=== PATIENT | female | born 1965 | race Caucasian/White ===

== ENCOUNTER 2016-08-05 17:47 | Inpatient (IN) | payer BC ==
[~2016-08-05] VITALS: Ht 167.6 cm; Wt 116.6 kg
--- NOTE | 2016-08-05 18:12 | PHYS DOC ---
Past Medical History Past Medical History: No Pertinent History Past Surgical History: Hysterectomy Alcohol Use: None Drug Use: None Adult General Chief Complaint Chief Complaint: ABDOMINAL PAIN HPI HPI Patient is a 50 year old female who presents with abdominal pain. Patient reports on she started having generalized abdominal pain. No clear inciting event other than she had eaten some chicken nachos prior to onset of pain. She describes a sharp pain without clear mitigating factors. She tried taking some omeprazole at home with insufficient relief. Pain is accompanied by nausea/vomiting. She has not had a bowel movement since Sunday. No other acute complaints. Review of Systems Review of Systems Constitutional: Denies fever or chills Eyes: Denies change in visual acuity or eye pain HENT: Denies nasal congestion or sore throat Respiratory: Denies cough or shortness of breath Cardiovascular: Denies chest pain GI: Generalized abdominal pain, nausea, vomiting, constipation. Denies bloody stools or diarrhea : Denies dysuria or hematuria Musculoskeletal: Denies back pain or joint pain Integument: Denies rash or skin lesions Neurologic: Denies headache, focal weakness or sensory changes Current Medications Current Medications Current Medications Medications (Trade) Dose Ordered Sig/Phillip Start Time Stop Time Status Last Admin Dose Admin Ertapenem (Invanz 1gm Ivpb For Omni) 50 ml @ 100 mls/hr 1X ONCE 08/05/16 20:00 08/05/16 20:29 DC 08/05/16 20:17 100 MLS/HR Famotidine (Pepcid) 20 mg 1X ONCE 08/05/16 18:30 08/05/16 18:31 DC 08/05/16 18:27 20 MG Info (Do NOT chart on this entry -- for MONITORING) 1 each PRN DAILY PRN 08/05/16 18:30 08/07/16 18:29 Iohexol (Omnipaque 300 Mg/ml) 75 ml 1X ONCE 08/05/16 18:30 08/05/16 18:31 DC 08/05/16 19:07 60 ML Morphine Sulfate 4 mg 1X ONCE 08/05/16 20:00 08/05/16 20:01 DC 08/05/16 20:15 4 MG Ondansetron HCl (Zofran) 4 mg 1X ONCE 08/05/16 18:30 08/05/16 18:31 DC 08/05/16 18:26 4 MG Ondansetron HCl 4 mg 4 mg 1X ONCE 08/05/16 20:00 08/05/16 20:01 DC 08/05/16 20:13 4 MG Sodium Chloride (Iv Sodium Chloride 0.9% 1000ml Bag) 1,000 ml @ 1,000 mls/hr Q1H 08/05/16 18:30 08/05/16 19:29 DC 08/05/16 18:26 1,000 MLS/HR Allergies Allergies Allergies Coded Allergies Type Severity Reaction Last Updated Verified No Known Drug Allergies 07/28/15 No Physical Exam Physical Exam Constitutional: Well developed, well nourished, non-toxic appearance HENT: Normocephalic, atraumatic, bilateral external ears normal Eyes: EOMI, conjunctiva normal, no discharge Neck: Normal range of motion, no stridor Cardiovascular: Heart rate normal, regular rhythm, no murmur Lungs & Thorax: Bilateral breath sounds clear to auscultation Abdomen: Bowel sounds normal, soft, non-distended, general TTP without guarding or rebound; umbilical hernia noted - soft, unable to reduce Skin: Warm, dry, no erythema, no rash Extremities: No obvious deformity, no edema Neurologic: Alert and oriented X 3, no gross deficits noted Current Patient Data Vital Signs Vital Signs Date Time Temp Pulse Resp B/P Pulse Ox O2 Delivery O2 Flow Rate FiO2 08/05/16 18:27 20 97 Room Air 08/05/16 18:06 97.6 93 174/108 97.6 Lab Values Laboratory Tests Test 08/05/16 18:18 White Blood Count 20.4x10^3/uL (4.0-11.0) H Red Blood Count 5.98x10^6/uL (3.50-5.40) H Hemoglobin 17.1g/dL (12.0-15.5) H Hematocrit 51.4% (36.0-47.0) H Mean Corpuscular Volume 86fL (79-100) Mean Corpuscular Hemoglobin 29pg (25-35) Mean Corpuscular Hemoglobin Concent 33g/dL (31-37) Red Cell Distribution Width 14.0% (11.5-14.5) Platelet Count 320x10^3/uL (140-400) Neutrophils (%) (Auto) 88% (31-73) H Lymphocytes (%) (Auto) 8% (24-48) L Monocytes (%) (Auto) 4% (0-9) Eosinophils (%) (Auto) 0% (0-3) Basophils (%) (Auto) 1% (0-3) Neutrophils # (Auto) 17.9x10^3uL (1.8-7.7) H Lymphocytes # (Auto) 1.5x10^3/uL (1.0-4.8) Monocytes # (Auto) 0.9x10^3/uL (0.0-1.1) Eosinophils # (Auto) 0.0x10^3/uL (0.0-0.7) Basophils # (Auto) 0.1x10^3/uL (0.0-0.2) Segmented Neutrophils % 84% (35-66) H Lymphocytes % 10% (24-48) L Monocytes % 6% (0-10) Platelet Estimate Adequate (ADEQUATE) Sodium Level 139mmol/L (136-145) Potassium Level 3.8mmol/L (3.5-5.1) Chloride Level 100mmol/L (98-107) Carbon Dioxide Level 26mmol/L (21-32) Anion Gap 13 (6-14) Blood Urea Nitrogen 28mg/dL (7-20) H Creatinine 1.0mg/dL (0.6-1.0) Estimated GFR (Cockcroft-Gault) 58.5 BUN/Creatinine Ratio 28 (6-20) H Glucose Level 153mg/dL (70-99) H Calcium Level 10.7mg/dL (8.5-10.1) H Total Bilirubin 0.6mg/dL (0.2-1.0) Aspartate Amino Transferase (AST) 23U/L (15-37) Alanine Aminotransferase (ALT) 18U/L (14-59) Alkaline Phosphatase 117U/L (46-116) H Total Protein 8.9g/dL (6.4-8.2) H Albumin 4.2g/dL (3.4-5.0) Albumin/Globulin Ratio 0.9 (1.0-1.7) L Lipase 130U/L (73-393) Laboratory Tests 08/05/16 18:18 Laboratory Tests 08/05/16 18:18 EKG EKG [] Radiology/Procedures Radiology/Procedures CT A/P: IMPRESSION 1. Mechanical small bowel obstruction secondary to a short segment of small bowel within a small umbilical hernia. There is wall thickening involving the herniated bowel suggesting a component of incarceration. The hernia sac measures 4.0 cm and the ventral abdominal wall defect measures 1.2 cm. 2. Colonic diverticulosis. 3. Dilated left renal pelvis and ureter, slightly decreased compared to the prior study. No clear obstructing etiology is seen. This may be due to a UVJ stricture, chronic reflux or congenital megaureter. 4. Small hiatal hernia. Course & Med Decision Making Course & Med Decision Making Pertinent Labs and Imaging studies reviewed. (See chart for details) Patient is 50 year old female who presents with abdominal pain, nausea/ vomiting. May simply be viral gastroenteritis, however umbilical hernia noted on exam so could be pathology related to that (incarcerated hernia?). Will obtain labs, CT A/P to evaluate. IVF bolus, pain meds, nausea meds ordered for relief of symptoms. Labs most notable for leukocytosis; lactic acid ordered as well. CT results as above. Discussed results with patient. Discussed with Dr. Rich (contract runner surgeon); tentative plan to take patient to OR tonight. Dose of invanz ordered. I spoke with Dr. Gauthier, who has agreed to admit patient. Bridge orders entered. Dragon Disclaimer Dragon Disclaimer This electronic medical record was generated, in whole or in part, using a voice recognition dictation system. Departure Departure Impression: Primary Impression: Incarcerated umbilical hernia Additional Impression: Small bowel obstruction Disposition: 09 ADMITTED INPATIENT Admitting Physician: Marcio Gauthier Condition: GUARDED Referrals: NANCY HAMMOND MD (PCP) Problem Qualifiers MARIA C LIRIANO MD Aug 05, 2016 18:12
[2016-08-05 18:29] LABS: BASO # 0.1 x10^3/uL (0.0-0.2); BASO % 1 % (0-3); EOS % 0 % (0-3); HEMATOCRIT 51.4 % (36.0-47.0); HEMOGLOBIN 17.1 g/dL (12.0-15.5); LYMPH # 1.5 x10^3/uL (1.0-4.8); LYMPH % 8 % (24-48); MEAN CORPUSCULAR HEMOGLOBIN 29 pg (25-35); MEAN CORPUSCULAR HGB CONC 33 g/dL (31-37); MEAN CORPUSCULAR VOLUME 86 fL (79-100); MONO % 4 % (0-9); NEUT % 88 % (31-73); PLATELET COUNT 320 x10^3/uL (140-400); RED BLOOD COUNT 5.98 x10^6/uL (3.50-5.40); WHITE BLOOD COUNT 20.4 x10^3/uL (4.0-11.0)
[2016-08-05] MEDS ORDERED: CONTRAST GIVEN MC PRN (18:30)
[2016-08-05] MEDS ORDERED: FAMOTIDINE 20 MG/2 ML VIAL IVP ONE (18:30)
[2016-08-05] MEDS ORDERED: IV NORMAL SALINE 1000ML BAG 1,000 ML IV SCH (18:30)
[2016-08-05] MEDS ORDERED: MORPHINE SULFATE 4 MG/ML DISP.SYRIN. IV ONE ×2 (18:30→20:00)
[2016-08-05] MEDS ORDERED: IOHEXOL 300 MG/ML 75 ML VIAL IV ONE (18:30)
[2016-08-05] MEDS ORDERED: ONDANSETRON PF 4 MG/2 ML VIAL. IV ONE ×2 (18:30→20:00)
[2016-08-05 18:47] LABS: CALCIUM 10.7 mg/dL (8.5-10.1); GFR 58.5; POTASSIUM 3.8 mmol/L (3.5-5.1)
[2016-08-05 18:53] LABS: ALBUMIN 4.2 g/dL (3.4-5.0); ALBUMIN/GLOBULIN RATIO 0.9 (1.0-1.7); TOTAL BILIRUBIN 0.6 mg/dL (0.2-1.0); TOTAL PROTEIN 8.9 g/dL (6.4-8.2)
[2016-08-05 19:33] LABS: PLT ESTIMATE ADEQUATE (ADEQUATE)
--- NOTE | 2016-08-05 19:34 | RAD ---
PROCEDURE Abdomen and pelvis CT with intravenous contrast. HISTORY Pain. TECHNIQUE Computed tomographic images of the abdomen and pelvis were obtained following the administration of 60 cc Omnipaque 300 intravenous contrast. One or more of the following individualized dose reduction techniques were utilized for this examination: 1. Automated exposure control; 2. Adjustment of the mA and/or kV according to patient size; 3. Use of iterative reconstruction technique. COMPARISON 07/28/2015 FINDINGS Evaluation of the lower thorax demonstrates no infiltrate or effusion. The heart is normal in size. No focal hepatic lesion is seen. There is a small hiatal hernia. The gallbladder, pancreas, spleen and adrenal glands are unremarkable. The kidneys are unremarkable. The appendix is unremarkable. There is a distended fluid and air-filled stomach. There are distended fluid and air-filled loops of small bowel throughout the abdomen with a transition point at the level of a small umbilical hernia containing a short segment of small bowel. There is wall thickening involving the herniated portion of bowel. There is decompression of the small bowel distal to the hernia. There is colonic diverticulosis without diverticulitis. There is a dilated left renal pelvis and ureter, slightly decreased compared to the prior study. The uterus is surgically absent. There is trace pelvic free fluid. No pathologically enlarged lymph node is seen. There is no suspicious osseous lesion. IMPRESSION 1. Mechanical small bowel obstruction secondary to a short segment of small bowel within a small umbilical hernia. There is wall thickening involving the herniated bowel suggesting a component of incarceration. The hernia sac measures 4.0 cm and the ventral abdominal wall defect measures 1.2 cm. 2. Colonic diverticulosis. 3. Dilated left renal pelvis and ureter, slightly decreased compared to the prior study. No clear obstructing etiology is seen. This may be due to a UVJ stricture, chronic reflux or congenital megaureter. 4. Small hiatal hernia. Electronically signed by: Micki Garcia (Aug 05, 2016 19:33:19)
[2016-08-05] MEDS ORDERED: ERTAPENEM 1GM IVPB FOR OMNI 50 ML IV ONE (20:00)
[2016-08-05] MEDS ORDERED: ONDANSETRON PF 4 MG/2 ML VIAL. IV PRN ×2 (20:15→21:00)
[2016-08-05] MEDS ORDERED: DEXAMETHASONE SOD PHOS 20 MG/5 ML VIAL. ONE (20:36)
[2016-08-05] MEDS ORDERED: MIDAZOLAM HCL 2 MG/2 ML VIAL. ONE (20:37)
[2016-08-05] MEDS ORDERED: ONDANSETRON PF 4 MG/2 ML VIAL. ONE (20:37)
[2016-08-05] MEDS ORDERED: ROCURONIUM 50 MG/5 ML VIAL. ONE (20:37)
[2016-08-05] MEDS ORDERED: FENTANYL PF 250 MCG/5 ML VIAL. ONE (20:37)
[2016-08-05] MEDS ORDERED: SUCCINYLCHOLINE 200 MG/10 ML VIAL. ONE (20:37)
[2016-08-05] MEDS ORDERED: LIDOCAINE 2% 100 MG/5 ML DISP.SYRIN. ONE ×2 (20:37→22:31)
[2016-08-05] MEDS ORDERED: PROPOFOL 20 ML IV ONE (20:37)
[2016-08-05] MEDS: IV NORMAL SALINE 1000ML BAG 1,000 ML IV SCH (20:40)
[2016-08-05] MEDS ORDERED: IV RINGERS,LACTATED 1000ML 1,000 ML IV SCH (20:51)
[2016-08-05] MEDS ORDERED: PROCHLORPERAZINE 10 MG/2 ML VIAL. IV PRN (21:00)
[2016-08-05] MEDS ORDERED: HYDROMORPHONE 2 MG/ML VIAL. IV PRN (21:00)
[2016-08-05] MEDS ORDERED: LIDOCAINE 1% 1 ML SYRINGE. ID PRN (21:00)
[2016-08-05] MEDS ORDERED: MORPHINE SULFATE 2 MG/ML DISP.SYRIN. IV PRN (21:00)
[2016-08-05] MEDS ORDERED: FENTANYL PF 100 MCG/2 ML VIAL. IV PRN (21:00)
--- NOTE | 2016-08-05 21:11 | ACF ---
Admission Forms Criteria INTESTINAL OBSTRUCTION Clinical Indications for Admission to Inpatient Care (Place 'X' for any and all applicable criteria): Admission is indicated for ANY ONE of the following (1)(2)(3)(4)(5): [X]I. Partial bowel obstruction [ ]II. Complete bowel obstruction Extended stay beyond goal length of stay may be needed for(1)(4)(12(: [ ]a) Identified etiology (eg, hernia, volvulus, cancer with obstruction) requiring intervention [ ]b) Gallstone ileus [ ]c) Surgical intervention [ ]d) Acute comorbid illness (eg, electrolyte imbalance, hypovolemia, renal failure) The original [employer] content created by [email or web address] has been revised. The portions of the content which have been revised are identified through the use of italic text or in bold, and [email or web address] has neither reviewed nor approved the modified material. All other unmodified content is copyright [email or web address]. Please see references footnoted in the original [employer] edition 2016 Admission Criteria Met?: Yes KRISTEN AREVALO Aug 05, 2016 21:11
[2016-08-05] MEDS ORDERED: ACETAMINOPHEN INTRAVENOUS 100 ML IV ONE (21:18)
[2016-08-05] MEDS ORDERED: CEFOXITIN 2GM IVPB FOR OMNI 100 ML IV ONE (21:19)
[2016-08-05] MEDS ORDERED: CEFOXITIN SODIUM 2 GM in IV NORMAL SALINE 100ML 100 ML IV STA (21:22)
--- NOTE | 2016-08-05 21:22 | PDOC ---
Provider Note Provider Note incarcerated incisional hernia, possible ischemia of the small bowel #[id number] to OR emergently. RAFA HERNÁNDEZ MD Aug 05, 2016 21:22
[2016-08-05] MEDS ORDERED: EPHEDRINE PF IN SALINE 50 MG/5 ML DISP.SYRIN. IV ONE (21:36)
[2016-08-05] MEDS ORDERED: BUPIVAC MPF-EPI 0.5%-1:200000 30 ML VIAL. ONE (22:02)
[2016-08-05] MEDS ORDERED: NEOSTIGMINE METHYLSULFATE 5 MG/5 ML SYRINGE. ONE (22:06)
[2016-08-05] MEDS ORDERED: GLYCOPYRROLATE 1 MG/5 ML VIAL. ONE (22:07)
[2016-08-05] MEDS ORDERED: DESFLURANE 61 TO 120 MINUTES IH ONE (22:19)
--- NOTE | 2016-08-05 22:42 | PDOC ---
BRIEF OPERATIVE NOTE Pre-Op Diagnosis Incarcerated incisional hernia, sbo open incarcerated incisional hernia repair with mesh; diagnostic laparoscopy [place] ebl 25 ivf 1000 aravind well to rr stable. #[id number] small bowel viable. RAFA HERNÁNDEZ MD Aug 05, 2016 22:42
[2016-08-05] MEDS ORDERED: 0.9 % SODIUM CHLORIDE 10 ML DISP.SYRIN. IV PRN (22:45)
[2016-08-05] MEDS ORDERED: OXYCODONE/APAP 5/325 TABLET. PO PRN (22:45)
[2016-08-05] MEDS: FENTANYL PF 100 MCG/2 ML VIAL. IV PRN ×3 (22:55→23:16)
[2016-08-05 23:24] VITALS: BP 189/99
[2016-08-05 23:54] VITALS: BP 181/118
[2016-08-06] VITALS (12 sets, daily range): BP systolic 122–187; BP diastolic 65–111
[2016-08-06] MEDS: IV NORMAL SALINE 1000ML BAG 1,000 ML IV SCH ×2 (00:11→09:10)
[2016-08-06] MEDS: METOCLOPRAMIDE HCL 10 MG/2 ML VIAL. IV PRN ×2 (00:23→06:30)
[2016-08-06] MEDS: MORPHINE SULFATE 4 MG/ML DISP.SYRIN. IV PRN ×3 (00:23→06:30)
--- NOTE | 2016-08-06 01:27 | OP ---
DATE OF SURGERY: 08/05/2016 PREOPERATIVE DIAGNOSIS: Incarcerated incisional hernia with small bowel obstruction. POSTOPERATIVE DIAGNOSIS: Incarcerated incisional hernia with small bowel obstruction. PROCEDURES: 1. Open incarcerated incisional hernia repair with mesh. 2. Diagnostic laparoscopy. SURGEON: Rafa Hernández MD ANESTHESIA: General. ESTIMATED BLOOD LOSS: 25 mL. INTRAVENOUS FLUIDS: 1000 mL. INDICATIONS: The patient is a 50-year-old female who presents with an incarcerated incisional hernia. She is here for repair. FINDINGS: Upon exposing the hernia and dissecting out the umbilical stalk and the hernia sac, the incarcerated small bowel spontaneously reduced. This was before the hernia sac was opened and before the small bowel could be inspected. The hernia itself was small, measuring approximately 1 cm as far as the fascial defect and the reduced small bowel could not be seen beneath the fascial defect. As opposed to opening the fascial defect larger to permit inspection of the small bowel, a diagnostic laparoscopy was performed. A segment of small bowel was visible that was edematous and acutely inflamed with a concentric ring proximal and distal to the inflamed segment that would indicate this was the portion that had been incarcerated and that had spontaneously reduced; the bowel appeared viable. Open incisional hernia repair with mesh was performed. PROCEDURE IN DETAIL: After informed consent was obtained, the patient was taken to the operating room, placed in supine position. After adequate induction of general anesthesia, she was prepped and draped in usual sterile fashion. An infraumbilical skin incision was made through her previous incision and extended through the subcutaneous tissue with cautery. Using a right angle the umbilical stalk was encircled, then doing so the hernia contents spontaneously reduced. The dermis of the umbilicus was from the hernia sac. The hernia sac was opened with cautery and there was serous ascitic fluid within the hernia sac and just beneath the level of the fascia. The hernia sac was excised and sent to pathology for examination. The fascial defect was approximately 1 cm. The small bowel beneath the fascial defect was unremarkable, and given appearance on the CT scan, there was concern that this small bowel that was visible may not have been the small bowel that was actually incarcerated upon presentation to the hospital; therefore, diagnostic laparoscopy was performed. An 11 mm port was placed directly through the fascial defect and pneumoperitoneum was established under direct vision. In doing so lying in the lower abdomen, was a segment of small bowel that was edematous and acutely inflamed with a concentric ring proximal and distal to the inflamed segment that would indicate this was the portion that had been incarcerated and that had spontaneously reduced; the bowel appeared viable. A 5 mm port was placed in the lower midline under direct vision and the small bowel was manipulated to ensure there were no necrotic areas on it, pictures were taken. There was no necrotic area. The bowel appeared viable, it was peristalsing. At this point, the 5 mm port was removed and this site was injected with local anesthetic. The pneumoperitoneum was desufflated and then an open incisional hernia repair was performed with a small 4.3 cm Bard Ventralex patch. This was placed just beneath the fascia and was sutured to the fascia with U sutures so that the knots were buried using interrupted 0 Prolene sutures at the 3 o'clock, 6 o'clock, 9 o'clock and 12 o'clock positions. The mesh laid flat against the abdominal wall and did not fold upon itself upon securing the mesh. The straps of the mesh were then excised and the hernia defect was then closed over the mesh with a [id number] 0 Prolene suture. The fascia and the skin were injected with local anesthetic. The dermis of the umbilicus was tacked to the fascia with a 3-0 Vicryl x 2. The skin was then closed with 4-0 Monocryl in subcuticular fashion. Sterile dressings were placed, which for the 5 mm port site consisted of Mastisol, Steri-Strips, and a bandage and for the umbilical incision consisted of a tonsil ball, Mastisol, Steri-Strips, and Tegaderm. She tolerated the procedure well. There were no apparent complications. She was then transferred in stable condition to the recovery room. RAFA HERNÁNDEZ MD DR: NAYLA/robert JOB#: [id number] / [id number] NANCY Jaramillo MD
[2016-08-06] MEDS ORDERED: FURO-69 PO (02:14)
[2016-08-06] MEDS ORDERED: NAPR500T3 PO (02:14)
[2016-08-06 05:44] LABS: BASO % 0 % (0-3); EOS % 0 % (0-3); HEMATOCRIT 44.6 % (36.0-47.0); HEMOGLOBIN 14.6 g/dL (12.0-15.5); LYMPH # 0.9 x10^3/uL (1.0-4.8); LYMPH % 5 % (24-48); MEAN CORPUSCULAR HEMOGLOBIN 28 pg (25-35); MEAN CORPUSCULAR HGB CONC 33 g/dL (31-37); MEAN CORPUSCULAR VOLUME 87 fL (79-100); MONO % 5 % (0-9); NEUT % 90 % (31-73); PLATELET COUNT 266 x10^3/uL (140-400); RED BLOOD COUNT 5.14 x10^6/uL (3.50-5.40); WHITE BLOOD COUNT 17.4 x10^3/uL (4.0-11.0)
[2016-08-06 06:01] LABS: CALCIUM 9.2 mg/dL (8.5-10.1); CREATININE 1.1 mg/dL (0.6-1.0); GFR 52.4; POTASSIUM 3.7 mmol/L (3.5-5.1)
--- NOTE | 2016-08-06 08:11 | CONS ---
DATE OF CONSULTATION: 08/05/2016 CHIEF COMPLAINT: Abdominal pain. HISTORY OF PRESENT ILLNESS: The patient is a 50-year-old female, who began having periumbilical abdominal pain on . The pain progressively worsened and it is now severe. It is constant and it is unrelenting. It is sharp type of pain. Movement or coughing makes the pain worse. It has been associated with nausea and vomiting and lack of the ability to pass stool and flatus. PAST MEDICAL HISTORY: She denies. PAST SURGICAL HISTORY: Laparoscopic hysterectomy. ALLERGIES: Denies drug allergies. HOME MEDICATIONS: She denies. Home medicine use of naproxen for tendinitis in her feet. SOCIAL HISTORY: She denies tobacco use or heavy alcohol use. She has a boyfriend who is here with her. She is employed. FAMILY HISTORY: Noncontributory to this illness. REVIEW OF SYSTEMS: CONSTITUTIONAL: She has been intermittently hot and cold, but has not objectively verified her temperature, so no objectively verified fevers. No unexplained weight loss or weight gain. EYES: Denies abrupt loss of vision or double vision. EARS, NOSE, MOUTH AND THROAT: Denies loss of hearing or ringing in her ears. CARDIOVASCULAR: Denies chest pain or heart palpitations. RESPIRATORY: Denies cough or shortness of breath. GASTROINTESTINAL: See HPI. GENITOURINARY: No dysuria or hematuria. HEMATOLOGIC: No easy bleeding or bruising. MUSCULOSKELETAL: She has feet pain in both of her feet, but no new myalgias or arthralgias. DERMATOLOGIC: No new skin rashes or lesions. NEUROLOGIC: No headaches or seizures. ENDOCRINE: No polyuria or polydipsia. PHYSICAL EXAMINATION: VITAL SIGNS: She is afebrile, heart rate is 93, with a pulse of 20, blood pressure is 174/108, O2 sat is 94% on room air. GENERAL: This is a well-developed, well-nourished female, who is moderately obese, with a BMI of 38.7. She does not appear to feel well. EYES: Her pupils are round and reactive. Sclerae are nonicteric. HEAD, EARS, NOSE, THROAT: Head is atraumatic. Mucous membranes are moist. Face is symmetric. NECK: Supple, without cervical lymphadenopathy, no supraclavicular lymphadenopathy. Neck is nontender and without masses. CARDIOVASCULAR: By palpation of her right radial pulse, is regular rate and rhythm. She has no pedal edema. RESPIRATORY: Respirations are nonlabored. She is on room air. Chest wall is nontender to palpation. ABDOMEN: Soft. She has generalized tenderness, but most of her tenderness is at the umbilicus where she is exquisitely tender over the umbilicus. She has an incarcerated hernia at her umbilicus. She has a previous incision from her laparoscopic hernia, indicating this is likely an incarcerated incisional hernia. PSYCHIATRIC: She is cooperative, with appropriate mood and affect. NEUROLOGIC: She is alert and oriented x 3. She can move all 4 extremities without difficulty. No resting tremor. DERMATOLOGIC: Exposed portions of her skin are unremarkable. LABORATORY DATA: Reviewed. IMAGING: Reviewed. ASSESSMENT: 1. Incarcerated incisional hernia. 2. Obesity with a BMI of 38.7. PLAN: The patient is being taken emergently to the Operating Room for incarcerated incisional hernia repair with possible mesh, possible bowel resection. Risk of surgery including bleeding, infection, need to perform a bowel resection if her bowel was nonviable with the subsequent risk of anastomotic leak, risk of injury to intra-abdominal structures as well as hernia recurrence were all discussed with her and her boyfriend. Questions were answered. She desires to proceed. We also discussed the urgency of the situation given that her small bowel is incarcerated in the defect. As far as hernia recurrence, the risk of hernia recurrence is increased by both the emergent nature of the surgery as well as her obesity, and then if the small bowel is necrotic and therefore mesh is not used for her repair, then that also increases her risk of hernia recurrence. She voices understanding. The OR crew has been notified. RAFA HERNÁNDEZ MD DR: NAYLA/robert JOB#: [id number] / [id number] NANCY Jaramillo MD
[2016-08-06] MEDS: SENNOSIDES/DOCUSATE 8.6/50MG TABLET. PO SCH ×2 (09:00→21:00)
[2016-08-06] MEDS ORDERED: ENOXAPARIN 40 MG/0.4 ML DISP.SYRIN. SQ SCH (09:00)
[2016-08-06] MEDS: HYDROMORPHONE 2 MG/ML VIAL. IV PRN ×2 (09:10→11:13)
[2016-08-06] MEDS: ONDANSETRON PF 4 MG/2 ML VIAL. IV PRN ×2 (09:24→12:54)
[2016-08-06] MEDS ORDERED: hydrALAZINE 20 MG/ML VIAL. IVP PRN (10:00)
[2016-08-06] MEDS ORDERED: ACETAMINOPHEN 325 MG TABLET. PO PRN (10:00)
[2016-08-06] MEDS ORDERED: ONDANSETRON PF 4 MG/2 ML VIAL. IV PRN (10:00)
[2016-08-06] MEDS ORDERED: ALBUTEROL SULFATE 2.5 MG/3 ML NEBU. NEB PRN (10:00)
--- NOTE | 2016-08-06 10:00 | PDOC1 ---
History and Physical Past Medical History Past Medical History GERD Family History Family History: Parent (cancer esophagus) Social History Smoke: No ALCOHOL: none Drugs: None Current Problem List Problem List Problems Medical Problems: (1) Incarcerated umbilical hernia Status: Acute (2) Small bowel obstruction Status: Acute Current Medications Current Medications Current Medications Medications (Trade) Dose Ordered Sig/Phillip Start Time Stop Time Status Last Admin Dose Admin Acetaminophen 100 ml @ As Directed STK-MED ONCE 08/05/16 21:18 08/05/16 21:19 DC Bupivacaine HCl/ Epinephrine Bitart (Sensorcain-Mpf Epi 0.5%-1:179853) 30 ml STK-MED ONCE 08/05/16 22:02 08/05/16 22:03 DC 08/05/16 21:40 30 ML Cefoxitin Sodium 100 ml @ As Directed STK-MED ONCE 08/05/16 21:19 08/05/16 21:20 DC Cefoxitin Sodium/ Sodium Chloride (Mefoxin/Iv Sodium Chloride 0.9% 100ml) 100 ml @ 200 mls/hr 1X STAT 08/05/16 21:22 08/05/16 21:51 UNV Desflurane (Suprane) 60 ml STK-MED ONCE 08/05/16 22:19 08/05/16 22:20 DC Dexamethasone Sodium Phosphate (Decadron) 20 mg STK-MED ONCE 08/05/16 20:36 08/05/16 20:37 DC Enoxaparin Sodium (Lovenox 40mg Syringe) 40 mg Q24H 08/06/16 09:00 08/06/16 09:10 40 MG Ephedrine Sulfate 50 mg STK-MED ONCE 08/05/16 21:36 08/05/16 21:37 DC Ertapenem (Invanz 1gm Ivpb For Omni) 50 ml @ 100 mls/hr 1X ONCE 08/05/16 20:00 08/05/16 20:29 DC 08/05/16 20:17 100 MLS/HR Famotidine (Pepcid) 20 mg 1X ONCE 08/05/16 18:30 08/05/16 18:31 DC 08/05/16 18:27 20 MG Fentanyl Citrate (Fentanyl 2ml Vial) 50 mcg PRN Q5MIN PRN 08/05/16 21:00 08/06/16 20:59 08/05/16 23:16 50 MCG Fentanyl Citrate (Fentanyl 5ml Vial) 250 mcg STK-MED ONCE 08/05/16 20:37 08/05/16 20:38 DC Glycopyrrolate (Robinul) 1 mg STK-MED ONCE 08/05/16 22:07 08/05/16 22:08 DC Hydromorphone HCl (Dilaudid) 0.2 mg PRN Q1HR PRN 08/05/16 22:45 08/06/16 09:10 0.2 MG Info 1 each 1 each PRN DAILY PRN 08/05/16 18:30 08/07/16 18:29 Iohexol (Omnipaque 300 Mg/ml) 75 ml 1X ONCE 08/05/16 18:30 08/05/16 18:31 DC 08/05/16 19:07 60 ML Ketorolac Tromethamine (Toradol) 30 mg PRN Q6HRS PRN 08/05/16 22:45 08/10/16 22:44 Lactated Ringer's (Iv Lactated Ringers) 1,000 ml @ 0 mls/hr Q0M 08/05/16 20:51 08/06/16 08:50 DC Lidocaine HCl 100 mg STK-MED ONCE 08/05/16 22:31 08/05/16 22:32 DC Metoclopramide HCl (Reglan) 10 mg PRN Q6HRS PRN 08/05/16 22:45 08/06/16 06:30 10 MG Midazolam HCl (Versed) 2 mg STK-MED ONCE 08/05/16 20:37 08/05/16 20:38 DC Morphine Sulfate 1 mg 1 mg PRN Q10MIN PRN 08/05/16 21:00 08/06/16 20:59 Morphine Sulfate 4 mg 4 mg PRN Q2HR PRN 08/05/16 20:15 08/06/16 20:14 08/06/16 06:30 4 MG Neostigmine Methylsulfate 5 mg STK-MED ONCE 08/05/16 22:06 08/05/16 22:07 DC Ondansetron HCl (Zofran) 4 mg PRN Q6HRS PRN 08/05/16 22:45 08/06/16 09:24 4 MG Ondansetron HCl 4 mg 4 mg STK-MED ONCE 08/05/16 20:37 08/05/16 20:38 DC Oxycodone/ Acetaminophen (Percocet 5/325) 2 tab PRN Q4HRS PRN 08/05/16 22:45 Prochlorperazine Edisylate 5 mg 5 mg PACU PRN PRN 08/05/16 21:00 08/06/16 20:59 Propofol (Diprivan) 20 ml @ As Directed STK-MED ONCE 08/05/16 20:37 08/05/16 20:38 DC Rocuronium [place] (Zemuron) 50 mg STK-MED ONCE 08/05/16 20:37 08/05/16 20:38 DC Senna/Docusate Sodium (Senna Plus) 1 tab BID 08/06/16 09:00 Sodium Chloride (Iv Sodium Chloride 0.9% 1000ml Bag) 1,000 ml @ 125 mls/hr Q8H 08/05/16 20:13 08/06/16 20:12 08/06/16 09:10 125 MLS/HR Sodium Chloride (Normal Saline Flush) 3 ml QSHIFT PRN 08/05/16 22:45 Succinylcholine Chloride (Anectine) 200 mg STK-MED ONCE 08/05/16 20:37 08/05/16 20:38 DC Allergies Allergies Allergies Coded Allergies Type Severity Reaction Last Updated Verified No Known Drug Allergies 07/28/15 No ROS Review of System CONSTITUTIONAL: No fever or chills EYES: No recent changes SKIN: No rash or itching CARDIOVASCULAR: No chest pain, syncope, palpitations, or edema RESPIRATORY: No SOB or cough GASTROINTESTINAL: abdominal pain NEUROLOGICAL: No headaches or weakness ENDOCRINE: No cold or heat intolerance GENITOURINARY: No urgency or frequency of urination MUSCULOSKELETAL: No back pain or joint pain LYMPHATICS: No enlarged lymph nodes PSYCHIATRIC: No anxiety or depression Physical Exam Physical Exam GEN.: mild apparent distress. Alert and oriented. HEENT: Head is normocephalic, atraumatic NECK: Supple. no jvd LUNGS: Clear to auscultation. normal airflow HEART: RRR, S1, S2 present. Peripheral pulses intact ABDOMEN: Soft, tender. NO BS distended. EXTREMITIES: Without any cyanosis. NEUROLOGIC: Normal speech, normal tone PSYCHIATRIC: Normal affect, normal mood. SKIN: No ulcerations Vitals Vitals Vital Signs Date Time Temp Pulse Resp B/P Pulse Ox O2 Delivery O2 Flow Rate FiO2 08/06/16 09:10 20 Room Air 08/06/16 08:23 97.9 90 159/82 93 97.9 08/06/16 07:32 2.0 Labs Labs Laboratory Tests Test 08/05/16 18:18 08/05/16 21:00 08/06/16 05:15 White Blood Count 20.4x10^3/uL (4.0-11.0) 17.4x10^3/uL (4.0-11.0) Red Blood Count 5.98x10^6/uL (3.50-5.40) 5.14x10^6/uL (3.50-5.40) Hemoglobin 17.1g/dL (12.0-15.5) 14.6g/dL (12.0-15.5) Hematocrit 51.4% (36.0-47.0) 44.6% (36.0-47.0) Mean Corpuscular Volume 86fL (79-100) 87fL (79-100) Mean Corpuscular Hemoglobin 29pg (25-35) 28pg (25-35) Mean Corpuscular Hemoglobin Concent 33g/dL (31-37) 33g/dL (31-37) Red Cell Distribution Width 14.0% (11.5-14.5) 14.0% (11.5-14.5) Platelet Count 320x10^3/uL (140-400) 266x10^3/uL (140-400) Neutrophils (%) (Auto) 88% (31-73) 90% (31-73) Lymphocytes (%) (Auto) 8% (24-48) 5% (24-48) Monocytes (%) (Auto) 4% (0-9) 5% (0-9) Eosinophils (%) (Auto) 0% (0-3) 0% (0-3) Basophils (%) (Auto) 1% (0-3) 0% (0-3) Neutrophils # (Auto) 17.9x10^3uL (1.8-7.7) 15.7x10^3uL (1.8-7.7) Lymphocytes # (Auto) 1.5x10^3/uL (1.0-4.8) 0.9x10^3/uL (1.0-4.8) Monocytes # (Auto) 0.9x10^3/uL (0.0-1.1) 0.8x10^3/uL (0.0-1.1) Eosinophils # (Auto) 0.0x10^3/uL (0.0-0.7) 0.0x10^3/uL (0.0-0.7) Basophils # (Auto) 0.1x10^3/uL (0.0-0.2) 0.0x10^3/uL (0.0-0.2) Segmented Neutrophils % 84% (35-66) Lymphocytes % 10% (24-48) Monocytes % 6% (0-10) Platelet Estimate Adequate (ADEQUATE) Sodium Level 139mmol/L (136-145) 139mmol/L (136-145) Potassium Level 3.8mmol/L (3.5-5.1) 3.7mmol/L (3.5-5.1) Chloride Level 100mmol/L (98-107) 103mmol/L (98-107) Carbon Dioxide Level 26mmol/L (21-32) 27mmol/L (21-32) Anion Gap 13 (6-14) 9 (6-14) Blood Urea Nitrogen 28mg/dL (7-20) 27mg/dL (7-20) Creatinine 1.0mg/dL (0.6-1.0) 1.1mg/dL (0.6-1.0) Estimated GFR (Cockcroft-Gault) 58.5 52.4 BUN/Creatinine Ratio 28 (6-20) Glucose Level 153mg/dL (70-99) 145mg/dL (70-99) Calcium Level 10.7mg/dL (8.5-10.1) 9.2mg/dL (8.5-10.1) Total Bilirubin 0.6mg/dL (0.2-1.0) Aspartate Amino Transf (AST/SGOT) 23U/L (15-37) Alanine Aminotransferase (ALT/SGPT) 18U/L (14-59) Alkaline Phosphatase 117U/L (46-116) Total Protein 8.9g/dL (6.4-8.2) Albumin 4.2g/dL (3.4-5.0) Albumin/Globulin Ratio 0.9 (1.0-1.7) Lipase 130U/L (73-393) Lactic Acid Level 0.9mmol/L (0.4-2.0) Laboratory Tests Test 08/05/16 18:18 08/05/16 21:00 08/06/16 05:15 White Blood Count 20.4x10^3/uL (4.0-11.0) 17.4x10^3/uL (4.0-11.0) Red Blood Count 5.98x10^6/uL (3.50-5.40) 5.14x10^6/uL (3.50-5.40) Hemoglobin 17.1g/dL (12.0-15.5) 14.6g/dL (12.0-15.5) Hematocrit 51.4% (36.0-47.0) 44.6% (36.0-47.0) Mean Corpuscular Volume 86fL (79-100) 87fL (79-100) Mean Corpuscular Hemoglobin 29pg (25-35) 28pg (25-35) Mean Corpuscular Hemoglobin Concent 33g/dL (31-37) 33g/dL (31-37) Red Cell Distribution Width 14.0% (11.5-14.5) 14.0% (11.5-14.5) Platelet Count 320x10^3/uL (140-400) 266x10^3/uL (140-400) Neutrophils (%) (Auto) 88% (31-73) 90% (31-73) Lymphocytes (%) (Auto) 8% (24-48) 5% (24-48) Monocytes (%) (Auto) 4% (0-9) 5% (0-9) Eosinophils (%) (Auto) 0% (0-3) 0% (0-3) Basophils (%) (Auto) 1% (0-3) 0% (0-3) Neutrophils # (Auto) 17.9x10^3uL (1.8-7.7) 15.7x10^3uL (1.8-7.7) Lymphocytes # (Auto) 1.5x10^3/uL (1.0-4.8) 0.9x10^3/uL (1.0-4.8) Monocytes # (Auto) 0.9x10^3/uL (0.0-1.1) 0.8x10^3/uL (0.0-1.1) Eosinophils # (Auto) 0.0x10^3/uL (0.0-0.7) 0.0x10^3/uL (0.0-0.7) Basophils # (Auto) 0.1x10^3/uL (0.0-0.2) 0.0x10^3/uL (0.0-0.2) Segmented Neutrophils % 84% (35-66) Lymphocytes % 10% (24-48) Monocytes % 6% (0-10) Platelet Estimate Adequate (ADEQUATE) Sodium Level 139mmol/L (136-145) 139mmol/L (136-145) Potassium Level 3.8mmol/L (3.5-5.1) 3.7mmol/L (3.5-5.1) Chloride Level 100mmol/L (98-107) 103mmol/L (98-107) Carbon Dioxide Level 26mmol/L (21-32) 27mmol/L (21-32) Anion Gap 13 (6-14) 9 (6-14) Blood Urea Nitrogen 28mg/dL (7-20) 27mg/dL (7-20) Creatinine 1.0mg/dL (0.6-1.0) 1.1mg/dL (0.6-1.0) Estimated GFR (Cockcroft-Gault) 58.5 52.4 BUN/Creatinine Ratio 28 (6-20) Glucose Level 153mg/dL (70-99) 145mg/dL (70-99) Calcium Level 10.7mg/dL (8.5-10.1) 9.2mg/dL (8.5-10.1) Total Bilirubin 0.6mg/dL (0.2-1.0) Aspartate Amino Transf (AST/SGOT) 23U/L (15-37) Alanine Aminotransferase (ALT/SGPT) 18U/L (14-59) Alkaline Phosphatase 117U/L (46-116) Total Protein 8.9g/dL (6.4-8.2) Albumin 4.2g/dL (3.4-5.0) Albumin/Globulin Ratio 0.9 (1.0-1.7) Lipase 130U/L (73-393) Lactic Acid Level 0.9mmol/L (0.4-2.0) VTE Prophylaxis Ordered VTE Prophylaxis Devices: Yes VTE Pharmacological Prophylaxi: Yes COURT GRIER MD Aug 06, 2016 10:00
[2016-08-06] MEDS: KETOROLAC TROMETHAMINE 30 MG/ML SYRINGE. IV PRN ×2 (11:13→21:28)
--- NOTE | 2016-08-06 12:28 | PDOC ---
Provider Note Provider Note c/o abd pain. mild nausea afeb vss abd soft obese tender bandage dry a/p pod #1 repair of incarcerated incisional hernia with mesh. pain control today. no new recs. RAFA HERNÁNDEZ MD Aug 06, 2016 12:28
[2016-08-06] MEDS: FENTANYL PF 100 MCG/2 ML VIAL. IV PRN (12:55)
--- NOTE | 2016-08-06 17:17 | HP ---
ADMIT DATE: 08/06/2016 CHIEF COMPLAINT: Abdominal pain. HISTORY OF PRESENT ILLNESS: This is a 50-year-old female patient with a prior history of laparoscopic hysterectomy who presented to the ER with periumbilical severe abdominal pain, started on with nausea and vomiting and bloating sensation, not having any bowel movements. Pain has been intractable in nature yesterday which made him to come to the ER. The patient described pain as 10/10 and sharp in nature, localized around umbilical region, no radiation. PAST MEDICAL HISTORY: Please see my electronic H and P. REVIEW OF SYSTEMS: Please see my electronic H and P. LABORATORY FINDINGS: WBC 20.4, hemoglobin is 17.0, MCV 36, platelets are 320 and segmented neutrophils 84%. Chemistry: Sodium is 139, potassium is 3.8, chloride is 100, carbon dioxide 26, anion gap is 13, BUN is 28, creatinine 1.0 and glucose is 158. IMAGING STUDIES: The abdomen and pelvic CT on presentation showed mechanical small bowel obstruction secondary to short segment of small bowel within the small umbilical hernia, colonic diverticulosis, dilated left renal pelvis and ureter, slightly decreased compared to prior CT and small hiatal hernia. ASSESSMENT: 1. Small bowel obstruction due to incarcerated umbilical hernia. 2. Status post emergent incarcerated incisional hernia repair with mesh placement by Dr. Rich. 3. Intractable abdominal pain due to above 4. GERD. 5. obesity bmi 41.5. PLAN: 1. The patient underwent emergent incarcerated incisional hernia repair with mesh by Dr. Rich. Currently, she is recovering. 2. Pain control with IV Dilaudid q. 2 hours as needed. Please see orders. 3. IV Zofran. 4. DVT prophylaxis. 5. IV hydration and n.p.o. 6. IV Protonix for GERD. 7. Scan bladder frequently q 4hours if the patient not able to void. 8. Supportive care. 9. Follow surgical recommendations. COURT GRIER MD DR: ERIC/robert JOB#: [id number] / [id number] JONELLED
[2016-08-06] MEDS: PANTOPRAZOLE IV PUSH 40 MG VIAL. IVP SCH (18:46)
[2016-08-06] MEDS: ENOXAPARIN 40 MG/0.4 ML DISP.SYRIN. SQ SCH (21:28)
[2016-08-07 03:28] VITALS: BP 143/61
[2016-08-07 06:25] LABS: BASO % 1 % (0-3); EOS % 0 % (0-3); HEMATOCRIT 41.9 % (36.0-47.0); HEMOGLOBIN 13.8 g/dL (12.0-15.5); LYMPH # 1.6 x10^3/uL (1.0-4.8); LYMPH % 18 % (24-48); MEAN CORPUSCULAR HEMOGLOBIN 28 pg (25-35); MEAN CORPUSCULAR HGB CONC 33 g/dL (31-37); MEAN CORPUSCULAR VOLUME 86 fL (79-100); MONO % 9 % (0-9); NEUT % 72 % (31-73); PLATELET COUNT 207 x10^3/uL (140-400); RED BLOOD COUNT 4.88 x10^6/uL (3.50-5.40); WHITE BLOOD COUNT 8.6 x10^3/uL (4.0-11.0)
[2016-08-07 06:41] LABS: CALCIUM 9.2 mg/dL (8.5-10.1); CREATININE 1.2 mg/dL (0.6-1.0); GFR 47.4
[2016-08-07 07:00] VITALS: BP 147/74
[2016-08-07] MEDS: SENNOSIDES/DOCUSATE 8.6/50MG TABLET. PO SCH ×2 (09:00→20:51)
[2016-08-07] MEDS ORDERED: ENOXAPARIN 40 MG/0.4 ML DISP.SYRIN. SQ SCH (09:00)
[2016-08-07] MEDS: PANTOPRAZOLE IV PUSH 40 MG VIAL. IVP SCH (10:30)
[2016-08-07] MEDS: IV NORMAL SALINE 1000ML BAG 1,000 ML IV SCH ×2 (10:31→20:54)
[2016-08-07] MEDS: POTASSIUM CHLORIDE 10MEQ 100 ML IV SCH ×4 (10:31→14:00)
[2016-08-07] MEDS: ENOXAPARIN 40 MG/0.4 ML DISP.SYRIN. SQ SCH ×2 (10:32→20:52)
[2016-08-07 11:14] VITALS: BP 141/85
[2016-08-07] MEDS: HYDROMORPHONE 2 MG/ML VIAL. IV PRN (11:42)
--- NOTE | 2016-08-07 13:09 | PDOC ---
PROGRESS NOTES Chief Complaint Chief Complaint 1. Small bowel obstruction due to incarcerated umbilical hernia, Status post emergent incarcerated incisional hernia repair with mesh placement by Dr. Rich. 2. hypokalemia 3. Intractable abdominal pain due to 1. 4. GERD. 5. obesity 6. CKD 3 7. SIRS with 1 PLAN: fu with sx npo ivf replete K NGT monitor bowel function talk to patient, encourage ambulation History of Present Illness History of Present Illness had N/V last night with NGT now no BM or flatus pain is ok Vitals Vitals Vital Signs Date Time Temp Pulse Resp B/P Pulse Ox O2 Delivery O2 Flow Rate FiO2 08/07/16 12:12 Room Air 08/07/16 11:14 99.1 87 16 141/85 91 99.1 08/06/16 07:32 2.0 Physical Exam General: Alert, Oriented X3, Cooperative Heart: Regular rate, Normal S1, Normal S2 Lungs: Clear, Wheezing Abdomen: Normal bowel sounds, Other (sx wound clean, mild tenderness at epigastric area and umblical wound) Extremities: No clubbing, No cyanosis Skin: No rashes Labs LABS Laboratory Tests Test 08/07/16 06:10 White Blood Count 8.6x10^3/uL (4.0-11.0) Red Blood Count 4.88x10^6/uL (3.50-5.40) Hemoglobin 13.8g/dL (12.0-15.5) Hematocrit 41.9% (36.0-47.0) Mean Corpuscular Volume 86fL (79-100) Mean Corpuscular Hemoglobin 28pg (25-35) Mean Corpuscular Hemoglobin Concent 33g/dL (31-37) Red Cell Distribution Width 14.0% (11.5-14.5) Platelet Count 207x10^3/uL (140-400) Neutrophils (%) (Auto) 72% (31-73) Lymphocytes (%) (Auto) 18% (24-48) Monocytes (%) (Auto) 9% (0-9) Eosinophils (%) (Auto) 0% (0-3) Basophils (%) (Auto) 1% (0-3) Neutrophils # (Auto) 6.2x10^3uL (1.8-7.7) Lymphocytes # (Auto) 1.6x10^3/uL (1.0-4.8) Monocytes # (Auto) 0.8x10^3/uL (0.0-1.1) Eosinophils # (Auto) 0.0x10^3/uL (0.0-0.7) Basophils # (Auto) 0.0x10^3/uL (0.0-0.2) Sodium Level 142mmol/L (136-145) Potassium Level 3.0mmol/L (3.5-5.1) Chloride Level 104mmol/L (98-107) Carbon Dioxide Level 30mmol/L (21-32) Anion Gap 8 (6-14) Blood Urea Nitrogen 30mg/dL (7-20) Creatinine 1.2mg/dL (0.6-1.0) Estimated GFR (Cockcroft-Gault) 47.4 Glucose Level 105mg/dL (70-99) Calcium Level 9.2mg/dL (8.5-10.1) Magnesium Level 1.8mg/dL (1.8-2.4) Review of Systems Review of Systems no fever, chills, sob or chest pain Assessment and Plan Assessmemt and Plan Problems Medical Problems: (1) Incarcerated umbilical hernia Status: Acute (2) Small bowel obstruction Status: Acute Problems: Comment Review of Relevant I have reviewed the following items jourdan (where applicable) has been applied. Labs Laboratory Tests Test 08/05/16 18:18 08/05/16 21:00 08/06/16 05:15 08/07/16 06:10 White Blood Count 20.4x10^3/uL (4.0-11.0) 17.4x10^3/uL (4.0-11.0) 8.6x10^3/uL (4.0-11.0) Red Blood Count 5.98x10^6/uL (3.50-5.40) 5.14x10^6/uL (3.50-5.40) 4.88x10^6/uL (3.50-5.40) Hemoglobin 17.1g/dL (12.0-15.5) 14.6g/dL (12.0-15.5) 13.8g/dL (12.0-15.5) Hematocrit 51.4% (36.0-47.0) 44.6% (36.0-47.0) 41.9% (36.0-47.0) Mean Corpuscular Volume 86fL (79-100) 87fL (79-100) 86fL (79-100) Mean Corpuscular Hemoglobin 29pg (25-35) 28pg (25-35) 28pg (25-35) Mean Corpuscular Hemoglobin Concent 33g/dL (31-37) 33g/dL (31-37) 33g/dL (31-37) Red Cell Distribution Width 14.0% (11.5-14.5) 14.0% (11.5-14.5) 14.0% (11.5-14.5) Platelet Count 320x10^3/uL (140-400) 266x10^3/uL (140-400) 207x10^3/uL (140-400) Neutrophils (%) (Auto) 88% (31-73) 90% (31-73) 72% (31-73) Lymphocytes (%) (Auto) 8% (24-48) 5% (24-48) 18% (24-48) Monocytes (%) (Auto) 4% (0-9) 5% (0-9) 9% (0-9) Eosinophils (%) (Auto) 0% (0-3) 0% (0-3) 0% (0-3) Basophils (%) (Auto) 1% (0-3) 0% (0-3) 1% (0-3) Neutrophils # (Auto) 17.9x10^3uL (1.8-7.7) 15.7x10^3uL (1.8-7.7) 6.2x10^3uL (1.8-7.7) Lymphocytes # (Auto) 1.5x10^3/uL (1.0-4.8) 0.9x10^3/uL (1.0-4.8) 1.6x10^3/uL (1.0-4.8) Monocytes # (Auto) 0.9x10^3/uL (0.0-1.1) 0.8x10^3/uL (0.0-1.1) 0.8x10^3/uL (0.0-1.1) Eosinophils # (Auto) 0.0x10^3/uL (0.0-0.7) 0.0x10^3/uL (0.0-0.7) 0.0x10^3/uL (0.0-0.7) Basophils # (Auto) 0.1x10^3/uL (0.0-0.2) 0.0x10^3/uL (0.0-0.2) 0.0x10^3/uL (0.0-0.2) Segmented Neutrophils % 84% (35-66) Lymphocytes % 10% (24-48) Monocytes % 6% (0-10) Platelet Estimate Adequate (ADEQUATE) Sodium Level 139mmol/L (136-145) 139mmol/L (136-145) 142mmol/L (136-145) Potassium Level 3.8mmol/L (3.5-5.1) 3.7mmol/L (3.5-5.1) 3.0mmol/L (3.5-5.1) Chloride Level 100mmol/L (98-107) 103mmol/L (98-107) 104mmol/L (98-107) Carbon Dioxide Level 26mmol/L (21-32) 27mmol/L (21-32) 30mmol/L (21-32) Anion Gap 13 (6-14) 9 (6-14) 8 (6-14) Blood Urea Nitrogen 28mg/dL (7-20) 27mg/dL (7-20) 30mg/dL (7-20) Creatinine 1.0mg/dL (0.6-1.0) 1.1mg/dL (0.6-1.0) 1.2mg/dL (0.6-1.0) Estimated GFR (Cockcroft-Gault) 58.5 52.4 47.4 BUN/Creatinine Ratio 28 (6-20) Glucose Level 153mg/dL (70-99) 145mg/dL (70-99) 105mg/dL (70-99) Calcium Level 10.7mg/dL (8.5-10.1) 9.2mg/dL (8.5-10.1) 9.2mg/dL (8.5-10.1) Total Bilirubin 0.6mg/dL (0.2-1.0) Aspartate Amino Transf (AST/SGOT) 23U/L (15-37) Alanine Aminotransferase (ALT/SGPT) 18U/L (14-59) Alkaline Phosphatase 117U/L (46-116) Total Protein 8.9g/dL (6.4-8.2) Albumin 4.2g/dL (3.4-5.0) Albumin/Globulin Ratio 0.9 (1.0-1.7) Lipase 130U/L (73-393) Lactic Acid Level 0.9mmol/L (0.4-2.0) Magnesium Level 1.8mg/dL (1.8-2.4) Laboratory Tests Test 08/07/16 06:10 White Blood Count 8.6x10^3/uL (4.0-11.0) Red Blood Count 4.88x10^6/uL (3.50-5.40) Hemoglobin 13.8g/dL (12.0-15.5) Hematocrit 41.9% (36.0-47.0) Mean Corpuscular Volume 86fL (79-100) Mean Corpuscular Hemoglobin 28pg (25-35) Mean Corpuscular Hemoglobin Concent 33g/dL (31-37) Red Cell Distribution Width 14.0% (11.5-14.5) Platelet Count 207x10^3/uL (140-400) Neutrophils (%) (Auto) 72% (31-73) Lymphocytes (%) (Auto) 18% (24-48) Monocytes (%) (Auto) 9% (0-9) Eosinophils (%) (Auto) 0% (0-3) Basophils (%) (Auto) 1% (0-3) Neutrophils # (Auto) 6.2x10^3uL (1.8-7.7) Lymphocytes # (Auto) 1.6x10^3/uL (1.0-4.8) Monocytes # (Auto) 0.8x10^3/uL (0.0-1.1) Eosinophils # (Auto) 0.0x10^3/uL (0.0-0.7) Basophils # (Auto) 0.0x10^3/uL (0.0-0.2) Sodium Level 142mmol/L (136-145) Potassium Level 3.0mmol/L (3.5-5.1) Chloride Level 104mmol/L (98-107) Carbon Dioxide Level 30mmol/L (21-32) Anion Gap 8 (6-14) Blood Urea Nitrogen 30mg/dL (7-20) Creatinine 1.2mg/dL (0.6-1.0) Estimated GFR (Cockcroft-Gault) 47.4 Glucose Level 105mg/dL (70-99) Calcium Level 9.2mg/dL (8.5-10.1) Magnesium Level 1.8mg/dL (1.8-2.4) Medications Current Medications Sodium Chloride (Iv Sodium Chloride 0.9% 1000ml Bag) 1,000 ml @ 1,000 mls/hr Q1H IV Last administered on 08/05/16 18:26; Start 08/05/16 at 18:30; Stop at 19:29; Status DC Ondansetron HCl (Zofran) 4 mg 1X ONCE IV Last administered on 08/05/16 18:26 ; Start 08/05/16 at 18:30; Stop 08/05/16 at 18:31; Status DC Famotidine (Pepcid) 20 mg 1X ONCE IVP Last administered on 08/05/16 18:27; Start 08/05/16 at 18:30; Stop 08/05/16 at 18:31; Status DC Morphine Sulfate 4 mg 1X ONCE IV Last administered on 08/05/16 18:27; Start 08/05/16 at 18:30; Stop 08/05/16 at 18:31; Status DC Iohexol (Omnipaque 300 Mg/ml) 75 ml 1X ONCE IV Last administered on 08/05/16 19:07; Start 08/05/16 at 18:30; Stop 08/05/16 at 18:31; Status DC Info (Do NOT chart on this entry -- for MONITORING) 1 each PRN DAILY PRN MC SEE COMMENTS; Start 08/05/16 at 18:30; Stop 08/07/16 at 18:29 Morphine Sulfate 4 mg 1X ONCE IV Last administered on 08/05/16 20:15; Start 08/05/16 at 20:00; Stop 08/05/16 at 20:01; Status DC Ondansetron HCl 4 mg 4 mg 1X ONCE IV Last administered on 08/05/16 20:13; Start 08/05/16 at 20:00; Stop 08/05/16 at 20:01; Status DC Ertapenem (Invanz 1gm Ivpb For Omni) 50 ml @ 100 mls/hr 1X ONCE IV Last administered on 08/05/16 20:17; Start 08/05/16 at 20:00; Stop 08/05/16 at 20:29 ; Status DC Ondansetron HCl (Zofran) 4 mg PRN Q8HRS PRN IV NAUSEA/VOMITING; Start 08/05/16 at 20:15; Stop 08/05/16 at 22:38; Status DC Morphine Sulfate 4 mg 4 mg PRN Q2HR PRN IV PAIN Last administered on 08/06/16 06:30; Start 08/05/16 at 20:15; Stop 08/06/16 at 20:14; Status DC Sodium Chloride (Iv Sodium Chloride 0.9% 1000ml Bag) 1,000 ml @ 125 mls/hr Q8H IV Last administered on 08/06/16 09:10; Start 08/05/16 at 20:13; Stop at 20:12; Status DC Dexamethasone Sodium Phosphate (Decadron) 20 mg STK-MED ONCE .ROUTE ; Start at 20:36; Stop 08/05/16 at 20:37; Status DC Ondansetron HCl 4 mg 4 mg STK-MED ONCE .ROUTE ; Start 08/05/16 at 20:37; Stop at 20:38; Status DC Propofol (Diprivan) 20 ml @ As Directed STK-MED ONCE IV ; Start 08/05/16 at 20: 37; Stop 08/05/16 at 20:38; Status DC Lidocaine HCl 100 mg STK-MED ONCE .ROUTE ; Start 08/05/16 at 20:37; Stop at 20:38; Status DC Midazolam HCl (Versed) 2 mg STK-MED ONCE .ROUTE ; Start 08/05/16 at 20:37; Stop 08/05/16 at 20:38; Status DC Fentanyl Citrate (Fentanyl 5ml Vial) 250 mcg STK-MED ONCE .ROUTE ; Start at 20:37; Stop 08/05/16 at 20:38; Status DC Succinylcholine Chloride (Anectine) 200 mg STK-MED ONCE .ROUTE ; Start 08/05/16 at 20:37; Stop 08/05/16 at 20:38; Status DC Rocuronium [place] (Zemuron) 50 mg STK-MED ONCE .ROUTE ; Start 08/05/16 at 20:37 ; Stop 08/05/16 at 20:38; Status DC Ondansetron HCl (Zofran) 4 mg PRN Q6HRS PRN IV Nausea; Start 08/05/16 at 21:00 ; Stop 08/05/16 at 22:38; Status DC Fentanyl Citrate (Fentanyl 2ml Vial) 25 mcg PRN Q5MIN PRN IV MILD PAIN; Start 08/05/16 at 21:00; Stop 08/06/16 at 20:59; Status DC Fentanyl Citrate (Fentanyl 2ml Vial) 50 mcg PRN Q5MIN PRN IV MODERATE PAIN Last administered on 08/06/16t 12:55; Start 08/05/16 at 21:00; Stop 08/06/16 at 20:59; Status DC Morphine Sulfate 1 mg 1 mg PRN Q10MIN PRN IV SEVERE PAIN; Start 08/05/16 at 21: 00; Stop 08/06/16 at 20:59; Status DC Lactated Ringer's (Iv Lactated Ringers) 1,000 ml @ 0 mls/hr Q0M IV ; Start at 20:51; Stop 08/06/16 at 08:50; Status DC Lidocaine HCl 2 ml 1X PRN PRN ID IV START; Start 08/05/16 at 21:00; Stop at 20:59; Status DC Hydromorphone HCl (Dilaudid) 0.5 mg PRN Q10MIN PRN IV SEV PAIN,Second choice; Start 08/05/16 at 21:00; Stop 08/06/16 at 20:59; Status DC Prochlorperazine Edisylate 5 mg 5 mg PACU PRN PRN IV NAUSEA; Start 08/05/16 at 21:00; Stop 08/06/16 at 20:59; Status DC Acetaminophen 100 ml @ As Directed STK-MED ONCE IV ; Start 08/05/16 at 21:18; Stop 08/05/16 at 21:19; Status DC Cefoxitin Sodium 100 ml @ As Directed STK-MED ONCE IV ; Start 08/05/16 at 21:19 ; Stop 08/05/16 at 21:20; Status DC Cefoxitin Sodium/ Sodium Chloride (Mefoxin/Iv Sodium Chloride 0.9% 100ml) 100 ml @ 200 mls/hr 1X STAT IV ; Start 08/05/16 at 21:22; Stop 08/05/16 at 21:51; Status UNV Ephedrine Sulfate 50 mg STK-MED ONCE IV ; Start 08/05/16 at 21:36; Stop at 21:37; Status DC Bupivacaine HCl/ Epinephrine Bitart (Sensorcain-Mpf Epi 0.5%-1:[id number]) 30 ml STK -MED ONCE .ROUTE Last administered on 08/05/16 21:40; Start 08/05/16 at 22:02 ; Stop 08/05/16 at 22:03; Status DC Neostigmine Methylsulfate 5 mg STK-MED ONCE .ROUTE ; Start 08/05/16 at 22:06; Stop 08/05/16 at 22:07; Status DC Glycopyrrolate (Robinul) 1 mg STK-MED ONCE .ROUTE ; Start 08/05/16 at 22:07; Stop 08/05/16 at 22:08; Status DC Desflurane (Suprane) 60 ml STK-MED ONCE IH ; Start 08/05/16 at 22:19; Stop 08/05 at 22:20; Status DC Lidocaine HCl 100 mg STK-MED ONCE .ROUTE ; Start 08/05/16 at 22:31; Stop at 22:32; Status DC Enoxaparin Sodium (Lovenox 40mg Syringe) 40 mg Q24H SQ Last administered on t 09:10; Start 08/06/16 at 09:00; Stop 08/06/16 at 12:49; Status DC Sodium Chloride (Normal Saline Flush) 3 ml QSHIFT PRN IV AFTER MEDS AND BLOOD DRAWS; Start 08/05/16 at 22:45 Oxycodone/ Acetaminophen (Percocet 5/325) 2 tab PRN Q4HRS PRN PO SEVERE PAIN; Start 08/05/16 at 22:45 Ketorolac Tromethamine (Toradol) 30 mg PRN Q6HRS PRN IV PAIN Last administered on 08/06/16 21:28; Start 08/05/16 at 22:45; Stop 08/10/16 at 22:44 Hydromorphone HCl (Dilaudid) 0.2 mg PRN Q1HR PRN IV PAIN Last administered on 11:42; Start 08/05/16 at 22:45 Senna/Docusate Sodium (Senna Plus) 1 tab BID PO ; Start 08/06/16 at 09:00 Ondansetron HCl (Zofran) 4 mg PRN Q6HRS PRN IV NAUESA, 1ST CHOICE Last administered on 08/06/16 12:54; Start 08/05/16 at 22:45 Metoclopramide HCl (Reglan) 10 mg PRN Q6HRS PRN IV Nausea/Vomiting, 2nd Choice Last administered on 08/06/16 06:30; Start 08/05/16 at 22:45 Acetaminophen (Tylenol) 325 mg PRN Q6HRS PRN PO MILD PAIN / TEMP; Start at 10:00 Acetaminophen/ Hydrocodone Bitart (Lortab 5/325) 1 tab PRN Q6HRS PRN PO MODERATE PAIN; Start 08/06/16 at 10:00 Hydralazine HCl (Apresoline) 10 mg PRN Q4HRS PRN IVP ELEVATED BP, SEE COMMENTS ; Start 08/06/16 at 10:00 Ondansetron HCl (Zofran) 4 mg PRN Q8HRS PRN IV NAUSEA/VOMITING; Start 08/06/16 at 10:00; Status UNV Albuterol Sulfate (Ventolin Neb Soln) 2.5 mg PRN Q4HRS PRN NEB SHORTNESS OF BREATH; Start 08/06/16 at 10:00 Enoxaparin Sodium (Lovenox 40mg Syringe) 40 mg DAILY SQ ; Start 08/07/16 at 09: 00; Status UNV Enoxaparin Sodium (Lovenox 40mg Syringe) 40 mg Q12HR SQ Last administered on 10:32; Start 08/06/16 at 21:00 Pantoprazole Sodium 40 mg 40 mg DAILYAC IVP Last administered on 08/07/16 10: 30; Start 08/06/16 at 18:30 Sodium Chloride 1,000 ml @ 100 mls/hr Q10H IV Last administered on 08/07/16 10:31; Start 08/07/16 at 09:45 Potassium Chloride (KCl Premix 10meq) 100 ml @ 100 mls/hr Q1H IV Last administered on 08/07/16 12:32; Start 08/07/16 at 10:00; Stop 08/07/16 at 13:59 Active Scripts Active Reported Naproxen 500 Mg Tablet 1 Tab PO BID Lasix (Furosemide) 20 Mg Tablet 1 Tab PO DAILY Vitals/I & O Vital Sign - Last 24 Hours 08/06/16 08/06/16 08/06/16 08/06/16 15:18 19:00 20:00 23:29 Temp 97.7 99.9 99.7 97.7 99.9 99.7 Pulse 94 80 98 Resp 18 B/P 153/80 164/82 122/65 Pulse Ox 94 95 92 O2 Delivery Room Air Room Air Room Air Room Air 08/07/16 08/07/16 08/07/16 08/07/16 03:28 07:00 10:30 11:14 Temp 99.3 98.2 99.1 99.3 98.2 99.1 Pulse 86 86 87 Resp 16 B/P 143/61 147/74 141/85 Pulse Ox 93 91 91 O2 Delivery Room Air Room Air Room Air Room Air 08/07/16 08/07/16 11:42 12:12 O2 Delivery Room Air Room Air Intake and Output 08/06/16 08/06/16 08/07/16 15:00 23:00 07:00 Intake Total 240 ml 1490.2 ml 0 ml Output Total 2800 ml 800 ml Balance 240 ml -1309.8 ml -800 ml MANAV OBANDO MD Aug 07, 2016 13:09
--- NOTE | 2016-08-07 13:19 | PDOC ---
Provider Note Provider Note n/v yest so ng placed. over 2000 ml out per emesis and ng yest. now abd pain much improved. tmax 99.9 vss abd soft obese. unable to accurately assess distention but she feels less tight today. approp mild tenderness inc cdi a/p pod #2 repair of incarcerated incisional hernia with mesh and release of sbo. suspect n/v related to bowel edema from where the bowel was incarcerated. she should improve as the edema resolves. will check xrays in am. RAFA HERNÁNDEZ MD Aug 07, 2016 13:19
[2016-08-07 15:00] VITALS: BP 143/85
[2016-08-07 19:30] VITALS: BP 162/91
[2016-08-07] MEDS ORDERED: ACETAMINOPHEN 650 MG SUPP.RECT. PR PRN (20:00)
[2016-08-07] MEDS: KETOROLAC TROMETHAMINE 30 MG/ML SYRINGE. IV PRN (20:53)
[2016-08-07 20:56] LABS: BILIRUBIN,URINE MODERATE (NEG); GLUCOSE,URINE NEGATIVE (NEG); NITRITE,URINE NEGATIVE (NEG); PH,URINE 7.5; PROTEIN,URINE 100 mg/dL (NEG-TRACE)
[2016-08-07 21:02] LABS: BACTERIA,URINE FEW /HPF (0-FEW); SQUAMOUS EPITHELIAL CELL,UR MOD /LPF; WBC,URINE OCC /HPF (0-4)
[2016-08-07] MEDS: PIPERACILLIN/TAZOBACTAM 3.375 GM in IV NORMAL SALINE 50ML 50 ML IV SCH (21:02)
[2016-08-07 23:01] VITALS: BP 133/76
[2016-08-08] MEDS: KETOROLAC TROMETHAMINE 30 MG/ML SYRINGE. IV PRN (03:12)
[2016-08-08 03:30] VITALS: BP 159/92
[2016-08-08 04:09] LABS: BASO % 0 % (0-3); EOS % 0 % (0-3); HEMATOCRIT 39.8 % (36.0-47.0); LYMPH # 1.9 x10^3/uL (1.0-4.8); LYMPH % 14 % (24-48); MEAN CORPUSCULAR HEMOGLOBIN 28 pg (25-35); MEAN CORPUSCULAR HGB CONC 33 g/dL (31-37); MEAN CORPUSCULAR VOLUME 87 fL (79-100); MONO % 8 % (0-9); NEUT % 78 % (31-73); PLATELET COUNT 195 x10^3/uL (140-400); RED CELL DISTRIBUTION WIDTH 13.6 % (11.5-14.5); WHITE BLOOD COUNT 13.2 x10^3/uL (4.0-11.0)
[2016-08-08 04:19] LABS: CALCIUM 9.2 mg/dL (8.5-10.1); GFR 58.5
[2016-08-08 04:27] LABS: POTASSIUM 2.9 mmol/L (3.5-5.1)
[2016-08-08] MEDS: POTASSIUM CHLORIDE 10MEQ 100 ML IV SCH ×6 (05:07→16:26)
[2016-08-08] MEDS: IV NORMAL SALINE 1000ML BAG 1,000 ML IV SCH (05:45)
[2016-08-08] MEDS: PIPERACILLIN/TAZOBACTAM 3.375 GM in IV NORMAL SALINE 50ML 50 ML IV SCH ×3 (06:02→19:54)
[2016-08-08] MEDS: PANTOPRAZOLE IV PUSH 40 MG VIAL. IVP SCH (06:04)
[2016-08-08 07:00] VITALS: BP 148/90
--- NOTE | 2016-08-08 08:28 | PDOC ---
MACO LAI IN FILE OPERATOR 08/08/16 0828: SURGICAL PROGRESS NOTE Subjective does not feel well, nothing specific, just a generalized unwell feeling small amount of flatus last night, didnt improve any symptoms Vital Signs Vital Signs Date Time Temp Pulse Resp B/P Pulse Ox O2 Delivery O2 Flow Rate FiO2 08/08/16 07:00 97.5 85 14 148/90 93 Room Air 97.5 I&O Intake and Output 08/08/16 07:00 Intake Total 910 ml Output Total 2400 ml Balance -1490 ml Other 910 ml Output Urine Total 300 ml Gastric Drainage Total 2100 ml # Voids 1 General: Oriented X3, Cooperative, No acute distress Abdomen: Soft, Other (moderate tenderness to LUQ, left mid abdomen, minimal incisional TTP) Labs Laboratory Tests Test 08/07/16 06:10 08/08/16 03:28 White Blood Count 8.6x10^3/uL (4.0-11.0) 13.2x10^3/uL (4.0-11.0) Red Blood Count 4.88x10^6/uL (3.50-5.40) 4.60x10^6/uL (3.50-5.40) Hemoglobin 13.8g/dL (12.0-15.5) 13.0g/dL (12.0-15.5) Hematocrit 41.9% (36.0-47.0) 39.8% (36.0-47.0) Mean Corpuscular Volume 86fL (79-100) 87fL (79-100) Mean Corpuscular Hemoglobin 28pg (25-35) 28pg (25-35) Mean Corpuscular Hemoglobin Concent 33g/dL (31-37) 33g/dL (31-37) Red Cell Distribution Width 14.0% (11.5-14.5) 13.6% (11.5-14.5) Platelet Count 207x10^3/uL (140-400) 195x10^3/uL (140-400) Neutrophils (%) (Auto) 72% (31-73) 78% (31-73) Lymphocytes (%) (Auto) 18% (24-48) 14% (24-48) Monocytes (%) (Auto) 9% (0-9) 8% (0-9) Eosinophils (%) (Auto) 0% (0-3) 0% (0-3) Basophils (%) (Auto) 1% (0-3) 0% (0-3) Neutrophils # (Auto) 6.2x10^3uL (1.8-7.7) 10.3x10^3uL (1.8-7.7) Lymphocytes # (Auto) 1.6x10^3/uL (1.0-4.8) 1.9x10^3/uL (1.0-4.8) Monocytes # (Auto) 0.8x10^3/uL (0.0-1.1) 1.0x10^3/uL (0.0-1.1) Eosinophils # (Auto) 0.0x10^3/uL (0.0-0.7) 0.0x10^3/uL (0.0-0.7) Basophils # (Auto) 0.0x10^3/uL (0.0-0.2) 0.0x10^3/uL (0.0-0.2) Sodium Level 142mmol/L (136-145) 142mmol/L (136-145) Potassium Level 3.0mmol/L (3.5-5.1) 2.9mmol/L (3.5-5.1) Chloride Level 104mmol/L (98-107) 104mmol/L (98-107) Carbon Dioxide Level 30mmol/L (21-32) 30mmol/L (21-32) Anion Gap 8 (6-14) 8 (6-14) Blood Urea Nitrogen 30mg/dL (7-20) 28mg/dL (7-20) Creatinine 1.2mg/dL (0.6-1.0) 1.0mg/dL (0.6-1.0) Estimated GFR (Cockcroft-Gault) 47.4 58.5 Glucose Level 105mg/dL (70-99) 91mg/dL (70-99) Calcium Level 9.2mg/dL (8.5-10.1) 9.2mg/dL (8.5-10.1) Magnesium Level 1.8mg/dL (1.8-2.4) Laboratory Tests Test 08/08/16 03:28 White Blood Count 13.2x10^3/uL (4.0-11.0) Red Blood Count 4.60x10^6/uL (3.50-5.40) Hemoglobin 13.0g/dL (12.0-15.5) Hematocrit 39.8% (36.0-47.0) Mean Corpuscular Volume 87fL (79-100) Mean Corpuscular Hemoglobin 28pg (25-35) Mean Corpuscular Hemoglobin Concent 33g/dL (31-37) Red Cell Distribution Width 13.6% (11.5-14.5) Platelet Count 195x10^3/uL (140-400) Neutrophils (%) (Auto) 78% (31-73) Lymphocytes (%) (Auto) 14% (24-48) Monocytes (%) (Auto) 8% (0-9) Eosinophils (%) (Auto) 0% (0-3) Basophils (%) (Auto) 0% (0-3) Neutrophils # (Auto) 10.3x10^3uL (1.8-7.7) Lymphocytes # (Auto) 1.9x10^3/uL (1.0-4.8) Monocytes # (Auto) 1.0x10^3/uL (0.0-1.1) Eosinophils # (Auto) 0.0x10^3/uL (0.0-0.7) Basophils # (Auto) 0.0x10^3/uL (0.0-0.2) Sodium Level 142mmol/L (136-145) Potassium Level 2.9mmol/L (3.5-5.1) Chloride Level 104mmol/L (98-107) Carbon Dioxide Level 30mmol/L (21-32) Anion Gap 8 (6-14) Blood Urea Nitrogen 28mg/dL (7-20) Creatinine 1.0mg/dL (0.6-1.0) Estimated GFR (Cockcroft-Gault) 58.5 Glucose Level 91mg/dL (70-99) Calcium Level 9.2mg/dL (8.5-10.1) Problem List Problems Medical Problems: (1) Incarcerated umbilical hernia Status: Acute (2) Small bowel obstruction Status: Acute Assessment/Plan fevers, leukocytosis moderate pain on exam, not excepted--check CT k 2.9, already has replacement ordered Problems: RAFA HERNÁNDEZ MD 08/08/16 1101: SURGICAL PROGRESS NOTE Assessment/Plan addendum i saw and examined her. i repeated her exam/history less pain today. no n/v. overall feeling better than yesterday. +flatus tmax 101.5 vss wbc ~13 alert, does not appear septic abd soft no obvious distention. mild diffuse tenderness--not as tender as she was when maco examined her. ct i reviewed. the report is not yet back but overall, the CT is as I would expect post op. Will await final CT read a/p leukocytosis, fever. source unclear. await CT read. if ok then will dc ng and start clears Problems: MACO LAI APRN Aug 08, 2016 08:28 RAFA HERNÁNDEZ MD Aug 08, 2016 11:01
[2016-08-08] MEDS ORDERED: IOHEXOL 240 MG/ML 50ML VIAL. PO ONE (08:45)
[2016-08-08] MEDS ORDERED: IOHEXOL 300 MG/ML 75 ML VIAL IV ONE (08:45)
[2016-08-08] MEDS: SENNOSIDES/DOCUSATE 8.6/50MG TABLET. PO SCH ×2 (09:00→21:08)
[2016-08-08] MEDS ORDERED: CONTRAST GIVEN MC PRN (09:00)
--- NOTE | 2016-08-08 10:22 | RAD ---
Exam performed: Acute abdominal series. Clinical indication: Abdominal pain, nausea Date of Service: 08/08/16. Comparison: Single view chest from 09/25/10 Findings: One view chest radiograph reveal a normal cardiomediastinal contour. There is a feeding tube in place, terminating in the stomach. The lungs are clear. Evidence of pleural fluid or free subdiaphragmatic air is absent. Mild gaseous dilation of the small bowel loops is noted in the central abdomen. Scattered stool in the colon. No pneumoperitoneum. No pathologic calcification or organomegaly is seen. Impression: 1. Negative chest 2. Mild gaseous distention of the small bowel loops in the central abdomen. Findings may be related to ileus pattern, developing obstruction not excluded. Close clinical and radiographic follow-up exams may be obtained to ensure interval resolution.
[2016-08-08 11:00] VITALS: BP 154/86
--- NOTE | 2016-08-08 11:23 | PDOC ---
PROGRESS NOTES Chief Complaint Chief Complaint 1. Small bowel obstruction due to incarcerated umbilical hernia, Status post emergent incarcerated incisional hernia repair with mesh placement by Dr. Rich. 2. hypokalemia 3. Intractable abdominal pain due to 1. 4. GERD. 5. obesity 6. CKD 3 7. SIRS with 1 8. SIRS with 1 PLAN: fu with sx npo ivf change to PPN replete K NGT monitor bowel function talk to patient, encourage ambulation zosyn started on 08/07 night given fever. abd/pelvis CT pending. AXR DONE History of Present Illness History of Present Illness had N/V last night with NGT now, lots of suction fever on 08/07 night no BM, had little flatus pain is ok K still low Vitals Vitals Vital Signs Date Time Temp Pulse Resp B/P Pulse Ox O2 Delivery O2 Flow Rate FiO2 08/08/16 07:00 97.5 85 14 148/90 93 Room Air 97.5 Physical Exam General: Oriented X3, Cooperative, No acute distress Heart: Regular rate, Normal S1, Normal S2 Lungs: Clear, Wheezing Abdomen: Soft, Other (moderate tenderness to LUQ, left mid abdomen, minimal incisional TTP) Extremities: No clubbing, No cyanosis Skin: No rashes Labs LABS Laboratory Tests Test 08/08/16 03:28 White Blood Count 13.2x10^3/uL (4.0-11.0) Red Blood Count 4.60x10^6/uL (3.50-5.40) Hemoglobin 13.0g/dL (12.0-15.5) Hematocrit 39.8% (36.0-47.0) Mean Corpuscular Volume 87fL (79-100) Mean Corpuscular Hemoglobin 28pg (25-35) Mean Corpuscular Hemoglobin Concent 33g/dL (31-37) Red Cell Distribution Width 13.6% (11.5-14.5) Platelet Count 195x10^3/uL (140-400) Neutrophils (%) (Auto) 78% (31-73) Lymphocytes (%) (Auto) 14% (24-48) Monocytes (%) (Auto) 8% (0-9) Eosinophils (%) (Auto) 0% (0-3) Basophils (%) (Auto) 0% (0-3) Neutrophils # (Auto) 10.3x10^3uL (1.8-7.7) Lymphocytes # (Auto) 1.9x10^3/uL (1.0-4.8) Monocytes # (Auto) 1.0x10^3/uL (0.0-1.1) Eosinophils # (Auto) 0.0x10^3/uL (0.0-0.7) Basophils # (Auto) 0.0x10^3/uL (0.0-0.2) Sodium Level 142mmol/L (136-145) Potassium Level 2.9mmol/L (3.5-5.1) Chloride Level 104mmol/L (98-107) Carbon Dioxide Level 30mmol/L (21-32) Anion Gap 8 (6-14) Blood Urea Nitrogen 28mg/dL (7-20) Creatinine 1.0mg/dL (0.6-1.0) Estimated GFR (Cockcroft-Gault) 58.5 Glucose Level 91mg/dL (70-99) Calcium Level 9.2mg/dL (8.5-10.1) Magnesium Level 1.9mg/dL (1.8-2.4) Review of Systems Review of Systems n chills, sob or chest pain Assessment and Plan Assessmemt and Plan Problems Medical Problems: (1) Incarcerated umbilical hernia Status: Acute (2) Small bowel obstruction Status: Acute Problems: Comment Review of Relevant I have reviewed the following items jourdan (where applicable) has been applied. Labs Laboratory Tests Test 08/07/16 06:10 08/08/16 03:28 White Blood Count 8.6x10^3/uL (4.0-11.0) 13.2x10^3/uL (4.0-11.0) Red Blood Count 4.88x10^6/uL (3.50-5.40) 4.60x10^6/uL (3.50-5.40) Hemoglobin 13.8g/dL (12.0-15.5) 13.0g/dL (12.0-15.5) Hematocrit 41.9% (36.0-47.0) 39.8% (36.0-47.0) Mean Corpuscular Volume 86fL (79-100) 87fL (79-100) Mean Corpuscular Hemoglobin 28pg (25-35) 28pg (25-35) Mean Corpuscular Hemoglobin Concent 33g/dL (31-37) 33g/dL (31-37) Red Cell Distribution Width 14.0% (11.5-14.5) 13.6% (11.5-14.5) Platelet Count 207x10^3/uL (140-400) 195x10^3/uL (140-400) Neutrophils (%) (Auto) 72% (31-73) 78% (31-73) Lymphocytes (%) (Auto) 18% (24-48) 14% (24-48) Monocytes (%) (Auto) 9% (0-9) 8% (0-9) Eosinophils (%) (Auto) 0% (0-3) 0% (0-3) Basophils (%) (Auto) 1% (0-3) 0% (0-3) Neutrophils # (Auto) 6.2x10^3uL (1.8-7.7) 10.3x10^3uL (1.8-7.7) Lymphocytes # (Auto) 1.6x10^3/uL (1.0-4.8) 1.9x10^3/uL (1.0-4.8) Monocytes # (Auto) 0.8x10^3/uL (0.0-1.1) 1.0x10^3/uL (0.0-1.1) Eosinophils # (Auto) 0.0x10^3/uL (0.0-0.7) 0.0x10^3/uL (0.0-0.7) Basophils # (Auto) 0.0x10^3/uL (0.0-0.2) 0.0x10^3/uL (0.0-0.2) Sodium Level 142mmol/L (136-145) 142mmol/L (136-145) Potassium Level 3.0mmol/L (3.5-5.1) 2.9mmol/L (3.5-5.1) Chloride Level 104mmol/L (98-107) 104mmol/L (98-107) Carbon Dioxide Level 30mmol/L (21-32) 30mmol/L (21-32) Anion Gap 8 (6-14) 8 (6-14) Blood Urea Nitrogen 30mg/dL (7-20) 28mg/dL (7-20) Creatinine 1.2mg/dL (0.6-1.0) 1.0mg/dL (0.6-1.0) Estimated GFR (Cockcroft-Gault) 47.4 58.5 Glucose Level 105mg/dL (70-99) 91mg/dL (70-99) Calcium Level 9.2mg/dL (8.5-10.1) 9.2mg/dL (8.5-10.1) Magnesium Level 1.8mg/dL (1.8-2.4) 1.9mg/dL (1.8-2.4) Laboratory Tests Test 08/08/16 03:28 White Blood Count 13.2x10^3/uL (4.0-11.0) Red Blood Count 4.60x10^6/uL (3.50-5.40) Hemoglobin 13.0g/dL (12.0-15.5) Hematocrit 39.8% (36.0-47.0) Mean Corpuscular Volume 87fL (79-100) Mean Corpuscular Hemoglobin 28pg (25-35) Mean Corpuscular Hemoglobin Concent 33g/dL (31-37) Red Cell Distribution Width 13.6% (11.5-14.5) Platelet Count 195x10^3/uL (140-400) Neutrophils (%) (Auto) 78% (31-73) Lymphocytes (%) (Auto) 14% (24-48) Monocytes (%) (Auto) 8% (0-9) Eosinophils (%) (Auto) 0% (0-3) Basophils (%) (Auto) 0% (0-3) Neutrophils # (Auto) 10.3x10^3uL (1.8-7.7) Lymphocytes # (Auto) 1.9x10^3/uL (1.0-4.8) Monocytes # (Auto) 1.0x10^3/uL (0.0-1.1) Eosinophils # (Auto) 0.0x10^3/uL (0.0-0.7) Basophils # (Auto) 0.0x10^3/uL (0.0-0.2) Sodium Level 142mmol/L (136-145) Potassium Level 2.9mmol/L (3.5-5.1) Chloride Level 104mmol/L (98-107) Carbon Dioxide Level 30mmol/L (21-32) Anion Gap 8 (6-14) Blood Urea Nitrogen 28mg/dL (7-20) Creatinine 1.0mg/dL (0.6-1.0) Estimated GFR (Cockcroft-Gault) 58.5 Glucose Level 91mg/dL (70-99) Calcium Level 9.2mg/dL (8.5-10.1) Magnesium Level 1.9mg/dL (1.8-2.4) Medications Current Medications Sodium Chloride (Iv Sodium Chloride 0.9% 1000ml Bag) 1,000 ml @ 1,000 mls/hr Q1H IV Last administered on 08/05/16 18:26; Start 08/05/16 at 18:30; Stop at 19:29; Status DC Ondansetron HCl (Zofran) 4 mg 1X ONCE IV Last administered on 08/05/16 18:26 ; Start 08/05/16 at 18:30; Stop 08/05/16 at 18:31; Status DC Famotidine (Pepcid) 20 mg 1X ONCE IVP Last administered on 08/05/16 18:27; Start 08/05/16 at 18:30; Stop 08/05/16 at 18:31; Status DC Morphine Sulfate 4 mg 1X ONCE IV Last administered on 08/05/16 18:27; Start 08/05/16 at 18:30; Stop 08/05/16 at 18:31; Status DC Iohexol (Omnipaque 300 Mg/ml) 75 ml 1X ONCE IV Last administered on 08/05/16 19:07; Start 08/05/16 at 18:30; Stop 08/05/16 at 18:31; Status DC Info (Do NOT chart on this entry -- for MONITORING) 1 each PRN DAILY PRN MC SEE COMMENTS; Start 08/05/16 at 18:30; Stop 08/07/16 at 18:29; Status DC Morphine Sulfate 4 mg 1X ONCE IV Last administered on 08/05/16 20:15; Start 08/05/16 at 20:00; Stop 08/05/16 at 20:01; Status DC Ondansetron HCl 4 mg 4 mg 1X ONCE IV Last administered on 08/05/16 20:13; Start 08/05/16 at 20:00; Stop 08/05/16 at 20:01; Status DC Ertapenem (Invanz 1gm Ivpb For Omni) 50 ml @ 100 mls/hr 1X ONCE IV Last administered on 08/05/16 20:17; Start 08/05/16 at 20:00; Stop 08/05/16 at 20:29 ; Status DC Ondansetron HCl (Zofran) 4 mg PRN Q8HRS PRN IV NAUSEA/VOMITING; Start 08/05/16 at 20:15; Stop 08/05/16 at 22:38; Status DC Morphine Sulfate 4 mg 4 mg PRN Q2HR PRN IV PAIN Last administered on 08/06/16 06:30; Start 08/05/16 at 20:15; Stop 08/06/16 at 20:14; Status DC Sodium Chloride (Iv Sodium Chloride 0.9% 1000ml Bag) 1,000 ml @ 125 mls/hr Q8H IV Last administered on 08/06/16 09:10; Start 08/05/16 at 20:13; Stop at 20:12; Status DC Dexamethasone Sodium Phosphate (Decadron) 20 mg STK-MED ONCE .ROUTE ; Start at 20:36; Stop 08/05/16 at 20:37; Status DC Ondansetron HCl 4 mg 4 mg STK-MED ONCE .ROUTE ; Start 08/05/16 at 20:37; Stop at 20:38; Status DC Propofol (Diprivan) 20 ml @ As Directed STK-MED ONCE IV ; Start 08/05/16 at 20: 37; Stop 08/05/16 at 20:38; Status DC Lidocaine HCl 100 mg STK-MED ONCE .ROUTE ; Start 08/05/16 at 20:37; Stop at 20:38; Status DC Midazolam HCl (Versed) 2 mg STK-MED ONCE .ROUTE ; Start 08/05/16 at 20:37; Stop 08/05/16 at 20:38; Status DC Fentanyl Citrate (Fentanyl 5ml Vial) 250 mcg STK-MED ONCE .ROUTE ; Start at 20:37; Stop 08/05/16 at 20:38; Status DC Succinylcholine Chloride (Anectine) 200 mg STK-MED ONCE .ROUTE ; Start 08/05/16 at 20:37; Stop 08/05/16 at 20:38; Status DC Rocuronium [place] (Zemuron) 50 mg STK-MED ONCE .ROUTE ; Start 08/05/16 at 20:37 ; Stop 08/05/16 at 20:38; Status DC Ondansetron HCl (Zofran) 4 mg PRN Q6HRS PRN IV Nausea; Start 08/05/16 at 21:00 ; Stop 08/05/16 at 22:38; Status DC Fentanyl Citrate (Fentanyl 2ml Vial) 25 mcg PRN Q5MIN PRN IV MILD PAIN; Start 08/05/16 at 21:00; Stop 08/06/16 at 20:59; Status DC Fentanyl Citrate (Fentanyl 2ml Vial) 50 mcg PRN Q5MIN PRN IV MODERATE PAIN Last administered on 08/06/16t 12:55; Start 08/05/16 at 21:00; Stop 08/06/16 at 20:59; Status DC Morphine Sulfate 1 mg 1 mg PRN Q10MIN PRN IV SEVERE PAIN; Start 08/05/16 at 21: 00; Stop 08/06/16 at 20:59; Status DC Lactated Ringer's (Iv Lactated Ringers) 1,000 ml @ 0 mls/hr Q0M IV ; Start at 20:51; Stop 08/06/16 at 08:50; Status DC Lidocaine HCl 2 ml 1X PRN PRN ID IV START; Start 08/05/16 at 21:00; Stop at 20:59; Status DC Hydromorphone HCl (Dilaudid) 0.5 mg PRN Q10MIN PRN IV SEV PAIN,Second choice; Start 08/05/16 at 21:00; Stop 08/06/16 at 20:59; Status DC Prochlorperazine Edisylate 5 mg 5 mg PACU PRN PRN IV NAUSEA; Start 08/05/16 at 21:00; Stop 08/06/16 at 20:59; Status DC Acetaminophen 100 ml @ As Directed STK-MED ONCE IV ; Start 08/05/16 at 21:18; Stop 08/05/16 at 21:19; Status DC Cefoxitin Sodium 100 ml @ As Directed STK-MED ONCE IV ; Start 08/05/16 at 21:19 ; Stop 08/05/16 at 21:20; Status DC Cefoxitin Sodium/ Sodium Chloride (Mefoxin/Iv Sodium Chloride 0.9% 100ml) 100 ml @ 200 mls/hr 1X STAT IV ; Start 08/05/16 at 21:22; Stop 08/05/16 at 21:51; Status UNV Ephedrine Sulfate 50 mg STK-MED ONCE IV ; Start 08/05/16 at 21:36; Stop at 21:37; Status DC Bupivacaine HCl/ Epinephrine Bitart (Sensorcain-Mpf Epi 0.5%-1:[id number]) 30 ml STK -MED ONCE .ROUTE Last administered on 08/05/16 21:40; Start 08/05/16 at 22:02 ; Stop 08/05/16 at 22:03; Status DC Neostigmine Methylsulfate 5 mg STK-MED ONCE .ROUTE ; Start 08/05/16 at 22:06; Stop 08/05/16 at 22:07; Status DC Glycopyrrolate (Robinul) 1 mg STK-MED ONCE .ROUTE ; Start 08/05/16 at 22:07; Stop 08/05/16 at 22:08; Status DC Desflurane (Suprane) 60 ml STK-MED ONCE IH ; Start 08/05/16 at 22:19; Stop 08/05 at 22:20; Status DC Lidocaine HCl 100 mg STK-MED ONCE .ROUTE ; Start 08/05/16 at 22:31; Stop at 22:32; Status DC Enoxaparin Sodium (Lovenox 40mg Syringe) 40 mg Q24H SQ Last administered on t 09:10; Start 08/06/16 at 09:00; Stop 08/06/16 at 12:49; Status DC Sodium Chloride (Normal Saline Flush) 3 ml QSHIFT PRN IV AFTER MEDS AND BLOOD DRAWS; Start 08/05/16 at 22:45 Oxycodone/ Acetaminophen (Percocet 5/325) 2 tab PRN Q4HRS PRN PO SEVERE PAIN; Start 08/05/16 at 22:45 Ketorolac Tromethamine (Toradol) 30 mg PRN Q6HRS PRN IV PAIN Last administered on 08/08/16 03:12; Start 08/05/16 at 22:45; Stop 08/10/16 at 22:44 Hydromorphone HCl (Dilaudid) 0.2 mg PRN Q1HR PRN IV PAIN Last administered on 11:42; Start 08/05/16 at 22:45 Senna/Docusate Sodium (Senna Plus) 1 tab BID PO ; Start 08/06/16 at 09:00 Ondansetron HCl (Zofran) 4 mg PRN Q6HRS PRN IV NAUESA, 1ST CHOICE Last administered on 08/06/16 12:54; Start 08/05/16 at 22:45 Metoclopramide HCl (Reglan) 10 mg PRN Q6HRS PRN IV Nausea/Vomiting, 2nd Choice Last administered on 08/06/16 06:30; Start 08/05/16 at 22:45 Acetaminophen (Tylenol) 325 mg PRN Q6HRS PRN PO MILD PAIN / TEMP; Start at 10:00 Acetaminophen/ Hydrocodone Bitart (Lortab 5/325) 1 tab PRN Q6HRS PRN PO MODERATE PAIN; Start 08/06/16 at 10:00 Hydralazine HCl (Apresoline) 10 mg PRN Q4HRS PRN IVP ELEVATED BP, SEE COMMENTS ; Start 08/06/16 at 10:00 Ondansetron HCl (Zofran) 4 mg PRN Q8HRS PRN IV NAUSEA/VOMITING; Start 08/06/16 at 10:00; Status UNV Albuterol Sulfate (Ventolin Neb Soln) 2.5 mg PRN Q4HRS PRN NEB SHORTNESS OF BREATH; Start 08/06/16 at 10:00 Enoxaparin Sodium (Lovenox 40mg Syringe) 40 mg DAILY SQ ; Start 08/07/16 at 09: 00; Status UNV Enoxaparin Sodium (Lovenox 40mg Syringe) 40 mg Q12HR SQ Last administered on 20:52; Start 08/06/16 at 21:00 Pantoprazole Sodium 40 mg 40 mg DAILYAC IVP Last administered on 08/08/16 06: 04; Start 08/06/16 at 18:30 Sodium Chloride 1,000 ml @ 100 mls/hr Q10H IV Last administered on 08/07/16 20:54; Start 08/07/16 at 09:45; Stop 08/08/16 at 09:04; Status DC Potassium Chloride 100 ml @ 100 mls/hr Q1H IV Last administered on 08/07/16 14:00; Start 08/07/16 at 10:00; Stop 08/07/16 at 13:59; Status DC Piperacillin Sod/ Tazobactam Sod/ Sodium Chloride (Zosyn/Iv Sodium Chloride 0.9 % 50ml) 50 ml @ 100 mls/hr Q6HRS IV Last administered on 08/08/16 06:02; Start 08/07/16 at 20:30 Acetaminophen 650 mg 650 mg PRN Q6HRS PRN [place] MILD PAIN / TEMP Last administered on 08/07/16 20:52; Start 08/07/16 at 20:00 Potassium Chloride (KCl Premix 10meq) 100 ml @ 100 mls/hr Q1H IV Last administered on 08/08/16 08:43; Start 08/08/16 at 05:00; Stop 08/08/16 at 10:59 ; Status DC Iohexol (Omnipaque 300 Mg/ml) 60 ml 1X ONCE IV Last administered on 08/08/16 10:09; Start 08/08/16 at 08:45; Stop 08/08/16 at 08:46; Status DC Iohexol (Omnipaque 240 Mg/ml) 50 ml 1X ONCE PO Last administered on 08/08/16 10:09; Start 08/08/16 at 08:45; Stop 08/08/16 at 08:46; Status DC Info 1 each 1 each PRN DAILY PRN MC SEE COMMENTS; Start 08/08/16 at 09:00; Stop 08/10/16 at 08:59 Amino Acids/ Glycerin/ Electrolytes (Procalamine) 1,000 ml @ 80 mls/hr [id number] IV ; Start 08/08/16 at 09:15 Active Scripts Active Reported Naproxen 500 Mg Tablet 1 Tab PO BID Lasix (Furosemide) 20 Mg Tablet 1 Tab PO DAILY Vitals/I & O Vital Sign - Last 24 Hours 08/07/16 08/07/16 08/07/16 08/07/16 11:42 12:12 15:00 19:30 Temp 97.9 101.5 97.9 101.5 Pulse 86 95 Resp 16 18 B/P 143/85 162/91 Pulse Ox 90 90 O2 Delivery Room Air Room Air Room Air Room Air 08/07/16 08/07/16 08/08/16 08/08/16 20:00 23:01 03:30 07:00 Temp 98.0 98.1 97.5 98.0 98.1 97.5 Pulse 86 86 85 Resp 18 18 14 B/P 133/76 159/92 148/90 Pulse Ox 92 93 93 O2 Delivery Room Air Room Air Room Air Room Air Intake and Output 08/07/16 08/07/16 08/08/16 15:00 23:00 07:00 Intake Total 910 ml Output Total 800 ml 1600 ml Balance -800 ml -690 ml MANAV OBANDO MD Aug 08, 2016 11:23
--- NOTE | 2016-08-08 14:06 | RAD ---
CT of the abdomen and pelvis without contrast, 08/08/2016: History: Abdominal pain and fever after hernia repair Multidetector CT imaging was performed following oral ingestion of contrast. No IV contrast was administered due to abnormal renal function studies. Comparison is made to an exam from 08/05/2016. There is mild atelectasis in the posterior costophrenic angles bilaterally. An NG tube extends into the stomach. The unopacified liver is unremarkable. No radiopaque gallstones are seen. The pancreas is unremarkable. The spleen is of normal size. The left renal pelvis is mildly prominent without evidence of hydronephrosis. The left ureter is mildly dilated as also noted on the previous study. No obstructing distal ureteral calculus is evident. There is mild aortic calcific plaquing without evidence of aneurysm. No abdominal or pelvic adenopathy is seen. The uterus is surgically absent. There are scattered diverticula in the colon. No paracolonic inflammatory process is seen. The appendix is visualized and shows no abnormality. A small radiopacity is noted in the cecum near its junction with the appendix, of doubtful significance. There is slight residual distention of proximal and mid small bowel. The distal small bowel loops are of normal caliber. A transition point is not identified. The previously umbilical hernia has been repaired. There are streaky areas of increased density compatible with inflammation and/or hemorrhage as well as air bubbles in the soft tissues at the surgical site. No discrete fluid collection is seen to suggest abscess. There is mild streaky increased density in the mesenteric fat in the celiac region. This lies along the superior aspect of the pancreatic body. The etiology is unclear. IMPRESSION: 1. Postsurgical change in the umbilical region without evidence of recurrent hernia. 2. Mild ongoing partial small bowel obstruction versus ileus. 3. Mild nonspecific streaky inflammation in the abdominal fat in the celiac region. 4. Unchanged dilatation of the left ureter. 5. Colonic diverticulosis. 6. Mild bibasilar atelectasis.
[2016-08-08 15:00] VITALS: BP 156/87
[2016-08-08] MEDS: AA 3%/ELECTROLYTE-TPN SOLN/GLY 1,000 ML IV SCH ×2 (16:28→20:58)
[2016-08-08] MEDS: ENOXAPARIN 40 MG/0.4 ML DISP.SYRIN. SQ SCH ×2 (16:29→21:05)
--- NOTE | 2016-08-08 16:30 | PATHOLOGY ---
PATHOLOGY REPORT * * * * * * * * FINAL DIAGNOSIS: Segment of fibromembranous and fibroadipose tissue, umbilical hernia repair: - Hernia sac showing focal reactive fibrosis, congestion, and recent hemorrhage. (JPM:csd; d/t: 08/08/2016) REPORT ELECTRONICALLY SIGNED BY: Param Toro M.D. DATE/TIME: 08/08/2016 16:29 * * * * * * * * GROSS PATHOLOGY: Received in formalin labeled "[place], hernia sac," is a piece of fibroadipose tissue measuring 4.8 x 3.4 x 1.5 cm. No nodules or lesions are identified. [employer] tissue is submitted in cassette A1. (CAA; 08/07/2016) INITIAL CPT CODE(S): A; 66381 Professional services performed by [facility] [address] Technical services performed by [facility] at [address] [place] [address], [facility] [address] [address]. SPECIMEN(S) RECEIVED: A.Hernia sac CLINICAL HISTORY: Incarcerated umbilical hernia PATIENT: JAMES BRANCH /AGE: 410/08/1965 (Age: 50) PATIENT #: [id number] ALT CASE #: SPECIMEN COLLECTION DATE: 08/05/2016 SPECIMEN RECEIVED DATE: 08/07/2016 [facility] - [address] [place] [address] - PHONE: [phone] * * * END OF REPORT * * *
[2016-08-08] MEDS: HYDROCODONE/APAP 5/325MG TABLET. PO PRN (16:32)
[2016-08-08 19:54] VITALS: BP 157/75
[2016-08-08 23:28] VITALS: BP 156/88
[2016-08-09] VITALS (8 sets, daily range): BP systolic 134–178; BP diastolic 73–93
[2016-08-09] MEDS: PIPERACILLIN/TAZOBACTAM 3.375 GM in IV NORMAL SALINE 50ML 50 ML IV SCH ×5 (00:06→23:38)
[2016-08-09] MEDS: HYDROCODONE/APAP 5/325MG TABLET. PO PRN ×2 (03:20→17:21)
[2016-08-09 04:53] LABS: BASO # 0.1 x10^3/uL (0.0-0.2); BASO % 1 % (0-3); EOS % 0 % (0-3); HEMATOCRIT 37.6 % (36.0-47.0); HEMOGLOBIN 12.3 g/dL (12.0-15.5); LYMPH # 1.4 x10^3/uL (1.0-4.8); LYMPH % 8 % (24-48); MEAN CORPUSCULAR HEMOGLOBIN 28 pg (25-35); MEAN CORPUSCULAR HGB CONC 33 g/dL (31-37); MEAN CORPUSCULAR VOLUME 86 fL (79-100); MONO % 6 % (0-9); NEUT % 86 % (31-73); PLATELET COUNT 212 x10^3/uL (140-400); RED BLOOD COUNT 4.39 x10^6/uL (3.50-5.40); RED CELL DISTRIBUTION WIDTH 13.4 % (11.5-14.5)
[2016-08-09 05:33] LABS: GFR 58.5
[2016-08-09] MEDS: PANTOPRAZOLE IV PUSH 40 MG VIAL. IVP SCH (06:01)
[2016-08-09] MEDS ORDERED: POTASSIUM CHLORIDE 20 MEQ TABLET.ER. PO ONE (08:00)
[2016-08-09] MEDS ORDERED: POTASSIUM CHLORIDE 20MEQ 50 ML IV ONE (08:00)
[2016-08-09] MEDS: SENNOSIDES/DOCUSATE 8.6/50MG TABLET. PO SCH ×2 (09:00→20:24)
[2016-08-09] MEDS: POTASSIUM CHLORIDE 10MEQ 100 ML IV SCH ×2 (10:40→13:48)
[2016-08-09] MEDS: AA 3%/ELECTROLYTE-TPN SOLN/GLY 1,000 ML IV SCH ×2 (10:40→23:47)
[2016-08-09] MEDS: ENOXAPARIN 40 MG/0.4 ML DISP.SYRIN. SQ SCH ×2 (10:40→20:23)
--- NOTE | 2016-08-09 11:50 | PDOC ---
PROGRESS NOTES Chief Complaint Chief Complaint 1. Small bowel obstruction due to incarcerated umbilical hernia, Status post emergent incarcerated incisional hernia repair with mesh placement by Dr. Rich. 2. hypokalemia 3. Intractable abdominal pain due to 1. 4. GERD. 5. obesity 6. CKD 3 7. SIRS with 1 PLAN: fu with sx on clear liquid ivf change to PPN replete K NGT removed monitor bowel function talk to patient, encourage ambulation zosyn started on 08/07 night given fever. ucx, bcx neg abd/pelvis CTis ok. no further intervention hope to advance diet , defer to sx History of Present Illness History of Present Illness fever since 08/07 night higher wbc no BM, had little flatus pain is ok K still low Vitals Vitals Vital Signs Date Time Temp Pulse Resp B/P Pulse Ox O2 Delivery O2 Flow Rate FiO2 08/09/16 08:00 Room Air 08/09/16 07:00 98.8 86 18 152/81 97 98.8 Physical Exam General: Oriented X3, Cooperative, No acute distress Heart: Regular rate, Normal S1, Normal S2 Lungs: Clear, Wheezing Abdomen: Soft, Other (moderate tenderness to LUQ, left mid abdomen, minimal incisional TTP) Extremities: No clubbing, No cyanosis Skin: No rashes Labs LABS Laboratory Tests Test 08/09/16 04:36 White Blood Count 18.0x10^3/uL (4.0-11.0) Red Blood Count 4.39x10^6/uL (3.50-5.40) Hemoglobin 12.3g/dL (12.0-15.5) Hematocrit 37.6% (36.0-47.0) Mean Corpuscular Volume 86fL (79-100) Mean Corpuscular Hemoglobin 28pg (25-35) Mean Corpuscular Hemoglobin Concent 33g/dL (31-37) Red Cell Distribution Width 13.4% (11.5-14.5) Platelet Count 212x10^3/uL (140-400) Neutrophils (%) (Auto) 86% (31-73) Lymphocytes (%) (Auto) 8% (24-48) Monocytes (%) (Auto) 6% (0-9) Eosinophils (%) (Auto) 0% (0-3) Basophils (%) (Auto) 1% (0-3) Neutrophils # (Auto) 15.5x10^3uL (1.8-7.7) Lymphocytes # (Auto) 1.4x10^3/uL (1.0-4.8) Monocytes # (Auto) 1.0x10^3/uL (0.0-1.1) Eosinophils # (Auto) 0.1x10^3/uL (0.0-0.7) Basophils # (Auto) 0.1x10^3/uL (0.0-0.2) Sodium Level 140mmol/L (136-145) Potassium Level 3.0mmol/L (3.5-5.1) Chloride Level 103mmol/L (98-107) Carbon Dioxide Level 27mmol/L (21-32) Anion Gap 10 (6-14) Blood Urea Nitrogen 19mg/dL (7-20) Creatinine 1.0mg/dL (0.6-1.0) Estimated GFR (Cockcroft-Gault) 58.5 Glucose Level 131mg/dL (70-99) Calcium Level 9.0mg/dL (8.5-10.1) Review of Systems Review of Systems no chills, sob or chest pain Assessment and Plan Assessmemt and Plan Problems Medical Problems: (1) Incarcerated umbilical hernia Status: Acute (2) Small bowel obstruction Status: Acute Problems: Comment Review of Relevant I have reviewed the following items jourdan (where applicable) has been applied. Labs Laboratory Tests Test 08/08/16 03:28 08/09/16 04:36 White Blood Count 13.2x10^3/uL (4.0-11.0) 18.0x10^3/uL (4.0-11.0) Red Blood Count 4.60x10^6/uL (3.50-5.40) 4.39x10^6/uL (3.50-5.40) Hemoglobin 13.0g/dL (12.0-15.5) 12.3g/dL (12.0-15.5) Hematocrit 39.8% (36.0-47.0) 37.6% (36.0-47.0) Mean Corpuscular Volume 87fL (79-100) 86fL (79-100) Mean Corpuscular Hemoglobin 28pg (25-35) 28pg (25-35) Mean Corpuscular Hemoglobin Concent 33g/dL (31-37) 33g/dL (31-37) Red Cell Distribution Width 13.6% (11.5-14.5) 13.4% (11.5-14.5) Platelet Count 195x10^3/uL (140-400) 212x10^3/uL (140-400) Neutrophils (%) (Auto) 78% (31-73) 86% (31-73) Lymphocytes (%) (Auto) 14% (24-48) 8% (24-48) Monocytes (%) (Auto) 8% (0-9) 6% (0-9) Eosinophils (%) (Auto) 0% (0-3) 0% (0-3) Basophils (%) (Auto) 0% (0-3) 1% (0-3) Neutrophils # (Auto) 10.3x10^3uL (1.8-7.7) 15.5x10^3uL (1.8-7.7) Lymphocytes # (Auto) 1.9x10^3/uL (1.0-4.8) 1.4x10^3/uL (1.0-4.8) Monocytes # (Auto) 1.0x10^3/uL (0.0-1.1) 1.0x10^3/uL (0.0-1.1) Eosinophils # (Auto) 0.0x10^3/uL (0.0-0.7) 0.1x10^3/uL (0.0-0.7) Basophils # (Auto) 0.0x10^3/uL (0.0-0.2) 0.1x10^3/uL (0.0-0.2) Sodium Level 142mmol/L (136-145) 140mmol/L (136-145) Potassium Level 2.9mmol/L (3.5-5.1) 3.0mmol/L (3.5-5.1) Chloride Level 104mmol/L (98-107) 103mmol/L (98-107) Carbon Dioxide Level 30mmol/L (21-32) 27mmol/L (21-32) Anion Gap 8 (6-14) 10 (6-14) Blood Urea Nitrogen 28mg/dL (7-20) 19mg/dL (7-20) Creatinine 1.0mg/dL (0.6-1.0) 1.0mg/dL (0.6-1.0) Estimated GFR (Cockcroft-Gault) 58.5 58.5 Glucose Level 91mg/dL (70-99) 131mg/dL (70-99) Calcium Level 9.2mg/dL (8.5-10.1) 9.0mg/dL (8.5-10.1) Magnesium Level 1.9mg/dL (1.8-2.4) Laboratory Tests Test 08/09/16 04:36 White Blood Count 18.0x10^3/uL (4.0-11.0) Red Blood Count 4.39x10^6/uL (3.50-5.40) Hemoglobin 12.3g/dL (12.0-15.5) Hematocrit 37.6% (36.0-47.0) Mean Corpuscular Volume 86fL (79-100) Mean Corpuscular Hemoglobin 28pg (25-35) Mean Corpuscular Hemoglobin Concent 33g/dL (31-37) Red Cell Distribution Width 13.4% (11.5-14.5) Platelet Count 212x10^3/uL (140-400) Neutrophils (%) (Auto) 86% (31-73) Lymphocytes (%) (Auto) 8% (24-48) Monocytes (%) (Auto) 6% (0-9) Eosinophils (%) (Auto) 0% (0-3) Basophils (%) (Auto) 1% (0-3) Neutrophils # (Auto) 15.5x10^3uL (1.8-7.7) Lymphocytes # (Auto) 1.4x10^3/uL (1.0-4.8) Monocytes # (Auto) 1.0x10^3/uL (0.0-1.1) Eosinophils # (Auto) 0.1x10^3/uL (0.0-0.7) Basophils # (Auto) 0.1x10^3/uL (0.0-0.2) Sodium Level 140mmol/L (136-145) Potassium Level 3.0mmol/L (3.5-5.1) Chloride Level 103mmol/L (98-107) Carbon Dioxide Level 27mmol/L (21-32) Anion Gap 10 (6-14) Blood Urea Nitrogen 19mg/dL (7-20) Creatinine 1.0mg/dL (0.6-1.0) Estimated GFR (Cockcroft-Gault) 58.5 Glucose Level 131mg/dL (70-99) Calcium Level 9.0mg/dL (8.5-10.1) Microbiology 08/07/16 Blood Culture - Preliminary, Resulted NO GROWTH AFTER 1 DAY 08/07/16 Urine Culture - Preliminary, Resulted 08/07/16 Urine Culture Result 1 ([facility]) - Preliminary, Resulted Medications Current Medications Sodium Chloride (Iv Sodium Chloride 0.9% 1000ml Bag) 1,000 ml @ 1,000 mls/hr Q1H IV Last administered on 08/05/16 18:26; Start 08/05/16 at 18:30; Stop at 19:29; Status DC Ondansetron HCl (Zofran) 4 mg 1X ONCE IV Last administered on 08/05/16 18:26 ; Start 08/05/16 at 18:30; Stop 08/05/16 at 18:31; Status DC Famotidine (Pepcid) 20 mg 1X ONCE IVP Last administered on 08/05/16 18:27; Start 08/05/16 at 18:30; Stop 08/05/16 at 18:31; Status DC Morphine Sulfate 4 mg 1X ONCE IV Last administered on 08/05/16 18:27; Start 08/05/16 at 18:30; Stop 08/05/16 at 18:31; Status DC Iohexol (Omnipaque 300 Mg/ml) 75 ml 1X ONCE IV Last administered on 08/05/16 19:07; Start 08/05/16 at 18:30; Stop 08/05/16 at 18:31; Status DC Info (Do NOT chart on this entry -- for MONITORING) 1 each PRN DAILY PRN MC SEE COMMENTS; Start 08/05/16 at 18:30; Stop 08/07/16 at 18:29; Status DC Morphine Sulfate 4 mg 1X ONCE IV Last administered on 1/28/17at 20:15; Start 08/05/16 at 20:00; Stop 08/05/16 at 20:01; Status DC Ondansetron HCl 4 mg 4 mg 1X ONCE IV Last administered on 08/05/16 20:13; Start 08/05/16 at 20:00; Stop 08/05/16 at 20:01; Status DC Ertapenem (Invanz 1gm Ivpb For Omni) 50 ml @ 100 mls/hr 1X ONCE IV Last administered on 08/05/16 20:17; Start 08/05/16 at 20:00; Stop 08/05/16 at 20:29 ; Status DC Ondansetron HCl (Zofran) 4 mg PRN Q8HRS PRN IV NAUSEA/VOMITING; Start 08/05/16 at 20:15; Stop 08/05/16 at 22:38; Status DC Morphine Sulfate 4 mg 4 mg PRN Q2HR PRN IV PAIN Last administered on 08/06/16 06:30; Start 08/05/16 at 20:15; Stop 08/06/16 at 20:14; Status DC Sodium Chloride (Iv Sodium Chloride 0.9% 1000ml Bag) 1,000 ml @ 125 mls/hr Q8H IV Last administered on 08/06/16 09:10; Start 08/05/16 at 20:13; Stop at 20:12; Status DC Dexamethasone Sodium Phosphate (Decadron) 20 mg STK-MED ONCE .ROUTE ; Start at 20:36; Stop 08/05/16 at 20:37; Status DC Ondansetron HCl 4 mg 4 mg STK-MED ONCE .ROUTE ; Start 08/05/16 at 20:37; Stop at 20:38; Status DC Propofol (Diprivan) 20 ml @ As Directed STK-MED ONCE IV ; Start 08/05/16 at 20: 37; Stop 08/05/16 at 20:38; Status DC Lidocaine HCl 100 mg STK-MED ONCE .ROUTE ; Start 08/05/16 at 20:37; Stop at 20:38; Status DC Midazolam HCl (Versed) 2 mg STK-MED ONCE .ROUTE ; Start 08/05/16 at 20:37; Stop 08/05/16 at 20:38; Status DC Fentanyl Citrate (Fentanyl 5ml Vial) 250 mcg STK-MED ONCE .ROUTE ; Start at 20:37; Stop 08/05/16 at 20:38; Status DC Succinylcholine Chloride (Anectine) 200 mg STK-MED ONCE .ROUTE ; Start 08/05/16 at 20:37; Stop 08/05/16 at 20:38; Status DC Rocuronium [place] (Zemuron) 50 mg STK-MED ONCE .ROUTE ; Start 08/05/16 at 20:37 ; Stop 08/05/16 at 20:38; Status DC Ondansetron HCl (Zofran) 4 mg PRN Q6HRS PRN IV Nausea; Start 08/05/16 at 21:00 ; Stop 08/05/16 at 22:38; Status DC Fentanyl Citrate (Fentanyl 2ml Vial) 25 mcg PRN Q5MIN PRN IV MILD PAIN; Start 08/05/16 at 21:00; Stop 08/06/16 at 20:59; Status DC Fentanyl Citrate (Fentanyl 2ml Vial) 50 mcg PRN Q5MIN PRN IV MODERATE PAIN Last administered on 08/06/16t 12:55; Start 08/05/16 at 21:00; Stop 08/06/16 at 20:59; Status DC Morphine Sulfate 1 mg 1 mg PRN Q10MIN PRN IV SEVERE PAIN; Start 08/05/16 at 21: 00; Stop 08/06/16 at 20:59; Status DC Lactated Ringer's (Iv Lactated Ringers) 1,000 ml @ 0 mls/hr Q0M IV ; Start at 20:51; Stop 08/06/16 at 08:50; Status DC Lidocaine HCl 2 ml 1X PRN PRN ID IV START; Start 08/05/16 at 21:00; Stop at 20:59; Status DC Hydromorphone HCl (Dilaudid) 0.5 mg PRN Q10MIN PRN IV SEV PAIN,Second choice; Start 08/05/16 at 21:00; Stop 08/06/16 at 20:59; Status DC Prochlorperazine Edisylate 5 mg 5 mg PACU PRN PRN IV NAUSEA; Start 08/05/16 at 21:00; Stop 08/06/16 at 20:59; Status DC Acetaminophen 100 ml @ As Directed STK-MED ONCE IV ; Start 08/05/16 at 21:18; Stop 08/05/16 at 21:19; Status DC Cefoxitin Sodium 100 ml @ As Directed STK-MED ONCE IV ; Start 08/05/16 at 21:19 ; Stop 08/05/16 at 21:20; Status DC Cefoxitin Sodium/ Sodium Chloride (Mefoxin/Iv Sodium Chloride 0.9% 100ml) 100 ml @ 200 mls/hr 1X STAT IV ; Start 08/05/16 at 21:22; Stop 08/05/16 at 21:51; Status UNV Ephedrine Sulfate 50 mg STK-MED ONCE IV ; Start 08/05/16 at 21:36; Stop at 21:37; Status DC Bupivacaine HCl/ Epinephrine Bitart (Sensorcain-Mpf Epi 0.5%-[id number]) 30 ml STK -MED ONCE .ROUTE Last administered on 08/05/16 21:40; Start 08/05/16 at 22:02 ; Stop 08/05/16 at 22:03; Status DC Neostigmine Methylsulfate 5 mg STK-MED ONCE .ROUTE ; Start 08/05/16 at 22:06; Stop 08/05/16 at 22:07; Status DC Glycopyrrolate (Robinul) 1 mg STK-MED ONCE .ROUTE ; Start 08/05/16 at 22:07; Stop 08/05/16 at 22:08; Status DC Desflurane (Suprane) 60 ml STK-MED ONCE IH ; Start 08/05/16 at 22:19; Stop 08/05 at 22:20; Status DC Lidocaine HCl 100 mg STK-MED ONCE .ROUTE ; Start 08/05/16 at 22:31; Stop at 22:32; Status DC Enoxaparin Sodium (Lovenox 40mg Syringe) 40 mg Q24H SQ Last administered on 09:10; Start 08/06/16 at 09:00; Stop 08/06/16 at 12:49; Status DC Sodium Chloride (Normal Saline Flush) 3 ml QSHIFT PRN IV AFTER MEDS AND BLOOD DRAWS; Start 08/05/16 at 22:45 Oxycodone/ Acetaminophen (Percocet 5/325) 2 tab PRN Q4HRS PRN PO SEVERE PAIN; Start 08/05/16 at 22:45 Ketorolac Tromethamine (Toradol) 30 mg PRN Q6HRS PRN IV PAIN Last administered on 08/08/16 03:12; Start 08/05/16 at 22:45; Stop 08/10/16 at 22:44 Hydromorphone HCl (Dilaudid) 0.2 mg PRN Q1HR PRN IV PAIN Last administered on 11:42; Start 08/05/16 at 22:45 Senna/Docusate Sodium (Senna Plus) 1 tab BID PO Last administered on 08/08/16 21:08; Start 08/06/16 at 09:00 Ondansetron HCl (Zofran) 4 mg PRN Q6HRS PRN IV NAUESA, 1ST CHOICE Last administered on 08/06/16 12:54; Start 08/05/16 at 22:45 Metoclopramide HCl (Reglan) 10 mg PRN Q6HRS PRN IV Nausea/Vomiting, 2nd Choice Last administered on 08/06/16 06:30; Start 08/05/16 at 22:45 Acetaminophen (Tylenol) 325 mg PRN Q6HRS PRN PO MILD PAIN / TEMP; Start at 10:00 Acetaminophen/ Hydrocodone Bitart (Lortab 5/325) 1 tab PRN Q6HRS PRN PO MODERATE PAIN Last administered on 08/09/16 03:20; Start 08/06/16 at 10:00 Hydralazine HCl (Apresoline) 10 mg PRN Q4HRS PRN IVP ELEVATED BP, SEE COMMENTS Last administered on 08/09/16 03:21; Start 08/06/16 at 10:00 Ondansetron HCl (Zofran) 4 mg PRN Q8HRS PRN IV NAUSEA/VOMITING; Start 08/06/16 at 10:00; Status UNV Albuterol Sulfate (Ventolin Neb Soln) 2.5 mg PRN Q4HRS PRN NEB SHORTNESS OF BREATH; Start 08/06/16 at 10:00 Enoxaparin Sodium (Lovenox 40mg Syringe) 40 mg DAILY SQ ; Start 08/07/16 at 09: 00; Status UNV Enoxaparin Sodium (Lovenox 40mg Syringe) 40 mg Q12HR SQ Last administered on 10:40; Start 08/06/16 at 21:00 Pantoprazole Sodium 40 mg 40 mg DAILYAC IVP Last administered on 08/09/16 06:01 ; Start 08/06/16 at 18:30 Sodium Chloride 1,000 ml @ 100 mls/hr Q10H IV Last administered on 08/07/16 20:54; Start 08/07/16 at 09:45; Stop 08/08/16 at 09:04; Status DC Potassium Chloride 100 ml @ 100 mls/hr Q1H IV Last administered on 08/07/16 14:00; Start 08/07/16 at 10:00; Stop 08/07/16 at 13:59; Status DC Piperacillin Sod/ Tazobactam Sod/ Sodium Chloride (Zosyn/Iv Sodium Chloride 0.9 % 50ml) 50 ml @ 100 mls/hr Q6HRS IV Last administered on 08/09/16 06:01; Start 08/07/16 at 20:30 Acetaminophen 650 mg 650 mg PRN Q6HRS PRN FL MILD PAIN / TEMP Last administered on 08/07/16 20:52; Start 08/07/16 at 20:00 Potassium Chloride (KCl Premix 10meq) 100 ml @ 100 mls/hr Q1H IV Last administered on 08/08/16 16:26; Start 08/08/16 at 05:00; Stop 08/08/16 at 10:59 ; Status DC Iohexol (Omnipaque 300 Mg/ml) 60 ml 1X ONCE IV Last administered on 08/08/16 10:09; Start 08/08/16 at 08:45; Stop 08/08/16 at 08:46; Status DC Iohexol (Omnipaque 240 Mg/ml) 50 ml 1X ONCE PO Last administered on 08/08/16 10:09; Start 08/08/16 at 08:45; Stop 08/08/16 at 08:46; Status DC Info 1 each 1 each PRN DAILY PRN MC SEE COMMENTS; Start 08/08/16 at 09:00; Stop 08/10/16 at 08:59 Amino Acids/ Glycerin/ Electrolytes (Procalamine) 1,000 ml @ 80 mls/hr [id number] IV Last administered on 08/09/16 10:40; Start 08/08/16 at 09:15 Potassium Chloride 40 meq 40 meq 1X ONCE PO Last administered on 08/09/16 10: 40; Start 08/09/16 at 08:00; Stop 08/09/16 at 08:02; Status DC Potassium Chloride 50 ml @ 50 mls/hr 1X ONCE IV ; Start 08/09/16 at 08:00; Stop 08/09/16 at 08:59; Status UNV Potassium Chloride (KCl Premix 10meq) 100 ml @ 100 mls/hr Q1H IV Last administered on 08/09/16 10:40; Start 08/09/16 at 08:15; Stop 08/09/16 at 10:14; Status DC Active Scripts Active Reported Naproxen 500 Mg Tablet 1 Tab PO BID Lasix (Furosemide) 20 Mg Tablet 1 Tab PO DAILY Vitals/I & O Vital Sign - Last 24 Hours 08/08/16 08/08/16 08/08/16 08/08/16 15:00 16:32 19:54 20:00 Temp 98.6 98.7 98.6 98.7 Pulse 81 81 Resp 14 16 B/P 156/87 157/75 Pulse Ox 93 93 O2 Delivery Room Air Room Air Room Air Room Air 08/08/16 08/09/16 08/09/16 08/09/16 23:28 03:00 03:20 03:21 Temp 100.2 99.7 100.2 99.7 Pulse 92 92 92 Resp 16 16 16 B/P 156/88 178/81 178/81 Pulse Ox 94 92 O2 Delivery Room Air Room Air Room Air 08/09/16 08/09/16 08/09/16 08/09/16 03:55 04:00 04:20 07:00 Temp 99.7 98.8 99.7 98.8 Pulse 92 86 Resp 16 16 18 B/P 178/81 157/73 152/81 Pulse Ox 92 97 O2 Delivery Room Air Room Air Room Air 08/09/16 08:00 O2 Delivery Room Air Intake and Output 1/31/17 1/31/17 2/1/17 15:00 23:00 07:00 Intake Total 2266 ml Output Total 100 ml 1600 ml Balance -100 ml 666 ml MANAV OBANDO MD Aug 09, 2016 11:50
[2016-08-09] MEDS: LISINOPRIL 20 MG TABLET PO SCH (13:48)
--- NOTE | 2016-08-09 15:01 | RAD ---
Chest, 2 views, 08/09/2016: History: Leukocytosis Comparison is made to a study from 08/08/2016. The heart size and pulmonary vascularity are normal. Mild streaky left basilar opacities suggest atelectasis. The right lung is clear. There is slight blunting of the costophrenic angles on the left suggesting a tiny amount of pleural fluid. The right chest remains clear. Persistent air fluid levels are noted in the upper abdomen. IMPRESSION: 1. Mild left basilar atelectasis. 2. Probable tiny left pleural effusion.
--- NOTE | 2016-08-09 16:00 | PDOC ---
Provider Note Provider Note She is very definitive when she tells me she feels better--specifically says her n/v have resolved, she is hungry, had a small bm and her pain today is less than it was sunday and sunday low grade temps ct unremarkable urine cx neg cxr no def pneumonia abd soft nd min tender--much less tender than yest inc cdi without erythema lab noted a/p s/p repair of incarcerated hernia leukocytosis, low grade temps noted--source unclear. she clinically feels better. will start soft diet and repeat cbc in am. RAFA HERNÁNDEZ MD Aug 09, 2016 16:00
[2016-08-09] MEDS ORDERED: BACITRACIN TP PRN (23:00)
[2016-08-09] MEDS ORDERED: NEOMYCIN TP PRN (23:00)
[2016-08-09] MEDS ORDERED: HYDROCORTISONE TP PRN (23:00)
[2016-08-09] MEDS ORDERED: POLYMYXIN B TP PRN (23:00)
[2016-08-09] MEDS ORDERED: HYDROCORTISONE 1% TOPICAL OINTMENT 30GM TUBE. TP PRN (23:15)
[2016-08-09] MEDS ORDERED: DIPHENHYDRAMINE 50 MG/ML VIAL IVP ONE (23:30)
[2016-08-10 03:30] VITALS: BP 161/87
[2016-08-10] MEDS: DIPHENHYDRAMINE 50 MG/ML VIAL IVP PRN (03:30)
[2016-08-10] MEDS: PIPERACILLIN/TAZOBACTAM 3.375 GM in IV NORMAL SALINE 50ML 50 ML IV SCH ×3 (05:33→17:35)
[2016-08-10 06:26] LABS: BASO # 0.1 x10^3/uL (0.0-0.2); BASO % 1 % (0-3); EOS % 1 % (0-3); HEMATOCRIT 38.8 % (36.0-47.0); HEMOGLOBIN 12.6 g/dL (12.0-15.5); LYMPH # 1.9 x10^3/uL (1.0-4.8); LYMPH % 11 % (24-48); MEAN CORPUSCULAR HEMOGLOBIN 28 pg (25-35); MEAN CORPUSCULAR HGB CONC 33 g/dL (31-37); MEAN CORPUSCULAR VOLUME 86 fL (79-100); MONO % 7 % (0-9); NEUT % 81 % (31-73); PLATELET COUNT 251 x10^3/uL (140-400); RED BLOOD COUNT 4.51 x10^6/uL (3.50-5.40); RED CELL DISTRIBUTION WIDTH 13.6 % (11.5-14.5); WHITE BLOOD COUNT 17.9 x10^3/uL (4.0-11.0)
[2016-08-10 06:44] LABS: CALCIUM 9.2 mg/dL (8.5-10.1); CREATININE 0.9 mg/dL (0.6-1.0); POTASSIUM 3.6 mmol/L (3.5-5.1)
[2016-08-10 06:56] LABS: PLT ESTIMATE ADEQUATE (ADEQUATE)
[2016-08-10 07:00] VITALS: BP 150/80
[2016-08-10] MEDS: PANTOPRAZOLE 40 MG TABLET. PO SCH (07:53)
[2016-08-10] MEDS: HYDROCODONE/APAP 5/325MG TABLET. PO PRN (08:58)
[2016-08-10] MEDS: LISINOPRIL 20 MG TABLET PO SCH (08:59)
[2016-08-10] MEDS: SENNOSIDES/DOCUSATE 8.6/50MG TABLET. PO SCH ×2 (08:59→21:16)
[2016-08-10] MEDS: ENOXAPARIN 40 MG/0.4 ML DISP.SYRIN. SQ SCH ×2 (09:00→21:17)
--- NOTE | 2016-08-10 09:02 | PDOC ---
MACO LAI FLIGHT ENGINEER 08/10/16 0902: SURGICAL PROGRESS NOTE Subjective tolerating diet no nausea feels about the same as yesterday sweating/rash to back Vital Signs Vital Signs Date Time Temp Pulse Resp B/P Pulse Ox O2 Delivery O2 Flow Rate FiO2 08/10/16 07:00 100.9 92 18 150/80 95 Room Air 100.9 I&O Intake and Output 08/10/16 07:00 Intake Total 1333 ml Output Total 2425 ml Balance -1092 ml Intake Oral 518 ml Other 815 ml Output Urine Total 2425 ml # Voids 2 General: Alert, Oriented X3, Cooperative, No acute distress Abdomen: Soft, Other (lap sites c/d/i, no erythema, ecchymosis noted ) Labs Laboratory Tests Test 08/09/16 04:36 08/10/16 06:05 White Blood Count 18.0x10^3/uL (4.0-11.0) 17.9x10^3/uL (4.0-11.0) Red Blood Count 4.39x10^6/uL (3.50-5.40) 4.51x10^6/uL (3.50-5.40) Hemoglobin 12.3g/dL (12.0-15.5) 12.6g/dL (12.0-15.5) Hematocrit 37.6% (36.0-47.0) 38.8% (36.0-47.0) Mean Corpuscular Volume 86fL (79-100) 86fL (79-100) Mean Corpuscular Hemoglobin 28pg (25-35) 28pg (25-35) Mean Corpuscular Hemoglobin Concent 33g/dL (31-37) 33g/dL (31-37) Red Cell Distribution Width 13.4% (11.5-14.5) 13.6% (11.5-14.5) Platelet Count 212x10^3/uL (140-400) 251x10^3/uL (140-400) Neutrophils (%) (Auto) 86% (31-73) 81% (31-73) Lymphocytes (%) (Auto) 8% (24-48) 11% (24-48) Monocytes (%) (Auto) 6% (0-9) 7% (0-9) Eosinophils (%) (Auto) 0% (0-3) 1% (0-3) Basophils (%) (Auto) 1% (0-3) 1% (0-3) Neutrophils # (Auto) 15.5x10^3uL (1.8-7.7) 14.4x10^3uL (1.8-7.7) Lymphocytes # (Auto) 1.4x10^3/uL (1.0-4.8) 1.9x10^3/uL (1.0-4.8) Monocytes # (Auto) 1.0x10^3/uL (0.0-1.1) 1.3x10^3/uL (0.0-1.1) Eosinophils # (Auto) 0.1x10^3/uL (0.0-0.7) 0.1x10^3/uL (0.0-0.7) Basophils # (Auto) 0.1x10^3/uL (0.0-0.2) 0.1x10^3/uL (0.0-0.2) Sodium Level 140mmol/L (136-145) 137mmol/L (136-145) Potassium Level 3.0mmol/L (3.5-5.1) 3.6mmol/L (3.5-5.1) Chloride Level 103mmol/L (98-107) 103mmol/L (98-107) Carbon Dioxide Level 27mmol/L (21-32) 23mmol/L (21-32) Anion Gap 10 (6-14) 11 (6-14) Blood Urea Nitrogen 19mg/dL (7-20) 11mg/dL (7-20) Creatinine 1.0mg/dL (0.6-1.0) 0.9mg/dL (0.6-1.0) Estimated GFR (Cockcroft-Gault) 58.5 66.0 Glucose Level 131mg/dL (70-99) 109mg/dL (70-99) Calcium Level 9.0mg/dL (8.5-10.1) 9.2mg/dL (8.5-10.1) Segmented Neutrophils % 82% (35-66) Band Neutrophils % 1% (0-9) Lymphocytes % 13% (24-48) Monocytes % 4% (0-10) Platelet Estimate Adequate (ADEQUATE) Laboratory Tests Test 08/10/16 06:05 White Blood Count 17.9x10^3/uL (4.0-11.0) Red Blood Count 4.51x10^6/uL (3.50-5.40) Hemoglobin 12.6g/dL (12.0-15.5) Hematocrit 38.8% (36.0-47.0) Mean Corpuscular Volume 86fL (79-100) Mean Corpuscular Hemoglobin 28pg (25-35) Mean Corpuscular Hemoglobin Concent 33g/dL (31-37) Red Cell Distribution Width 13.6% (11.5-14.5) Platelet Count 251x10^3/uL (140-400) Neutrophils (%) (Auto) 81% (31-73) Lymphocytes (%) (Auto) 11% (24-48) Monocytes (%) (Auto) 7% (0-9) Eosinophils (%) (Auto) 1% (0-3) Basophils (%) (Auto) 1% (0-3) Neutrophils # (Auto) 14.4x10^3uL (1.8-7.7) Lymphocytes # (Auto) 1.9x10^3/uL (1.0-4.8) Monocytes # (Auto) 1.3x10^3/uL (0.0-1.1) Eosinophils # (Auto) 0.1x10^3/uL (0.0-0.7) Basophils # (Auto) 0.1x10^3/uL (0.0-0.2) Segmented Neutrophils % 82% (35-66) Band Neutrophils % 1% (0-9) Lymphocytes % 13% (24-48) Monocytes % 4% (0-10) Platelet Estimate Adequate (ADEQUATE) Sodium Level 137mmol/L (136-145) Potassium Level 3.6mmol/L (3.5-5.1) Chloride Level 103mmol/L (98-107) Carbon Dioxide Level 23mmol/L (21-32) Anion Gap 11 (6-14) Blood Urea Nitrogen 11mg/dL (7-20) Creatinine 0.9mg/dL (0.6-1.0) Estimated GFR (Cockcroft-Gault) 66.0 Glucose Level 109mg/dL (70-99) Calcium Level 9.2mg/dL (8.5-10.1) Problem List Problems Medical Problems: (1) Incarcerated umbilical hernia Status: Acute (2) Small bowel obstruction Status: Acute Assessment/Plan s/p hernia repair fevers, leukocytosis-unknown origin ID consult pending Problems: RAFA HERNÁNDEZ MD 08/10/16 1052: SURGICAL PROGRESS NOTE Assessment/Plan addendum i saw and examined her. she continues to have less pain. no n/v. aravind solid food and another bm this am low grade temp and leukocytosis persist. abd soft nd nt inc with ecchymosis but no infection a/p unclear as to source of leukocytosis and low grade temps. abd exam benign. no unexpected abd symptoms. no new recs. Problems: MACO LAI APRN Aug 10, 2016 09:02 RAFA HERNÁNDEZ MD Aug 10, 2016 10:52
[2016-08-10 11:00] VITALS: BP 128/77
--- NOTE | 2016-08-10 11:58 | PDOC ---
PROGRESS NOTES Chief Complaint Chief Complaint 1. Small bowel obstruction due to incarcerated umbilical hernia, Status post emergent incarcerated incisional hernia repair with mesh placement by Dr. Rich. 2. hypokalemia 3. Intractable abdominal pain due to 1. 4. GERD. 5. obesity 6. CKD 3 7. SIRS with 1 PLAN: fu with sx on clear liquid ivf change to PPN, cont for now given fever zosyn started on 08/07 night given fever. ucx, bcx neg abd/pelvis CTis ok. no further intervention advance diet to gi soft on 08/09 clinically better, still low grade fever, high wbc, ID consult History of Present Illness History of Present Illness fever since 08/07 night high wbc + BM, had little flatus pain is ok K better Vitals Vitals Vital Signs Date Time Temp Pulse Resp B/P Pulse Ox O2 Delivery O2 Flow Rate FiO2 08/10/16 11:00 98.2 92 18 128/77 95 Room Air 98.2 Physical Exam General: Alert, Oriented X3, Cooperative, No acute distress Heart: Regular rate, Normal S1, Normal S2 Lungs: Clear, Wheezing Abdomen: Soft, Other (lap sites c/d/i, no erythema, ecchymosis noted ) Extremities: No clubbing, No cyanosis Skin: No rashes Labs LABS Laboratory Tests Test 08/10/16 06:05 White Blood Count 17.9x10^3/uL (4.0-11.0) Red Blood Count 4.51x10^6/uL (3.50-5.40) Hemoglobin 12.6g/dL (12.0-15.5) Hematocrit 38.8% (36.0-47.0) Mean Corpuscular Volume 86fL (79-100) Mean Corpuscular Hemoglobin 28pg (25-35) Mean Corpuscular Hemoglobin Concent 33g/dL (31-37) Red Cell Distribution Width 13.6% (11.5-14.5) Platelet Count 251x10^3/uL (140-400) Neutrophils (%) (Auto) 81% (31-73) Lymphocytes (%) (Auto) 11% (24-48) Monocytes (%) (Auto) 7% (0-9) Eosinophils (%) (Auto) 1% (0-3) Basophils (%) (Auto) 1% (0-3) Neutrophils # (Auto) 14.4x10^3uL (1.8-7.7) Lymphocytes # (Auto) 1.9x10^3/uL (1.0-4.8) Monocytes # (Auto) 1.3x10^3/uL (0.0-1.1) Eosinophils # (Auto) 0.1x10^3/uL (0.0-0.7) Basophils # (Auto) 0.1x10^3/uL (0.0-0.2) Segmented Neutrophils % 82% (35-66) Band Neutrophils % 1% (0-9) Lymphocytes % 13% (24-48) Monocytes % 4% (0-10) Platelet Estimate Adequate (ADEQUATE) Sodium Level 137mmol/L (136-145) Potassium Level 3.6mmol/L (3.5-5.1) Chloride Level 103mmol/L (98-107) Carbon Dioxide Level 23mmol/L (21-32) Anion Gap 11 (6-14) Blood Urea Nitrogen 11mg/dL (7-20) Creatinine 0.9mg/dL (0.6-1.0) Estimated GFR (Cockcroft-Gault) 66.0 Glucose Level 109mg/dL (70-99) Calcium Level 9.2mg/dL (8.5-10.1) Review of Systems Review of Systems no chills, sob or chest pain Assessment and Plan Assessmemt and Plan Problems Medical Problems: (1) Incarcerated umbilical hernia Status: Acute (2) Small bowel obstruction Status: Acute Problems: Comment Review of Relevant I have reviewed the following items jourdan (where applicable) has been applied. Labs Laboratory Tests Test 08/09/16 04:36 08/10/16 06:05 White Blood Count 18.0x10^3/uL (4.0-11.0) 17.9x10^3/uL (4.0-11.0) Red Blood Count 4.39x10^6/uL (3.50-5.40) 4.51x10^6/uL (3.50-5.40) Hemoglobin 12.3g/dL (12.0-15.5) 12.6g/dL (12.0-15.5) Hematocrit 37.6% (36.0-47.0) 38.8% (36.0-47.0) Mean Corpuscular Volume 86fL (79-100) 86fL (79-100) Mean Corpuscular Hemoglobin 28pg (25-35) 28pg (25-35) Mean Corpuscular Hemoglobin Concent 33g/dL (31-37) 33g/dL (31-37) Red Cell Distribution Width 13.4% (11.5-14.5) 13.6% (11.5-14.5) Platelet Count 212x10^3/uL (140-400) 251x10^3/uL (140-400) Neutrophils (%) (Auto) 86% (31-73) 81% (31-73) Lymphocytes (%) (Auto) 8% (24-48) 11% (24-48) Monocytes (%) (Auto) 6% (0-9) 7% (0-9) Eosinophils (%) (Auto) 0% (0-3) 1% (0-3) Basophils (%) (Auto) 1% (0-3) 1% (0-3) Neutrophils # (Auto) 15.5x10^3uL (1.8-7.7) 14.4x10^3uL (1.8-7.7) Lymphocytes # (Auto) 1.4x10^3/uL (1.0-4.8) 1.9x10^3/uL (1.0-4.8) Monocytes # (Auto) 1.0x10^3/uL (0.0-1.1) 1.3x10^3/uL (0.0-1.1) Eosinophils # (Auto) 0.1x10^3/uL (0.0-0.7) 0.1x10^3/uL (0.0-0.7) Basophils # (Auto) 0.1x10^3/uL (0.0-0.2) 0.1x10^3/uL (0.0-0.2) Sodium Level 140mmol/L (136-145) 137mmol/L (136-145) Potassium Level 3.0mmol/L (3.5-5.1) 3.6mmol/L (3.5-5.1) Chloride Level 103mmol/L (98-107) 103mmol/L (98-107) Carbon Dioxide Level 27mmol/L (21-32) 23mmol/L (21-32) Anion Gap 10 (6-14) 11 (6-14) Blood Urea Nitrogen 19mg/dL (7-20) 11mg/dL (7-20) Creatinine 1.0mg/dL (0.6-1.0) 0.9mg/dL (0.6-1.0) Estimated GFR (Cockcroft-Gault) 58.5 66.0 Glucose Level 131mg/dL (70-99) 109mg/dL (70-99) Calcium Level 9.0mg/dL (8.5-10.1) 9.2mg/dL (8.5-10.1) Segmented Neutrophils % 82% (35-66) Band Neutrophils % 1% (0-9) Lymphocytes % 13% (24-48) Monocytes % 4% (0-10) Platelet Estimate Adequate (ADEQUATE) Laboratory Tests Test 08/10/16 06:05 White Blood Count 17.9x10^3/uL (4.0-11.0) Red Blood Count 4.51x10^6/uL (3.50-5.40) Hemoglobin 12.6g/dL (12.0-15.5) Hematocrit 38.8% (36.0-47.0) Mean Corpuscular Volume 86fL (79-100) Mean Corpuscular Hemoglobin 28pg (25-35) Mean Corpuscular Hemoglobin Concent 33g/dL (31-37) Red Cell Distribution Width 13.6% (11.5-14.5) Platelet Count 251x10^3/uL (140-400) Neutrophils (%) (Auto) 81% (31-73) Lymphocytes (%) (Auto) 11% (24-48) Monocytes (%) (Auto) 7% (0-9) Eosinophils (%) (Auto) 1% (0-3) Basophils (%) (Auto) 1% (0-3) Neutrophils # (Auto) 14.4x10^3uL (1.8-7.7) Lymphocytes # (Auto) 1.9x10^3/uL (1.0-4.8) Monocytes # (Auto) 1.3x10^3/uL (0.0-1.1) Eosinophils # (Auto) 0.1x10^3/uL (0.0-0.7) Basophils # (Auto) 0.1x10^3/uL (0.0-0.2) Segmented Neutrophils % 82% (35-66) Band Neutrophils % 1% (0-9) Lymphocytes % 13% (24-48) Monocytes % 4% (0-10) Platelet Estimate Adequate (ADEQUATE) Sodium Level 137mmol/L (136-145) Potassium Level 3.6mmol/L (3.5-5.1) Chloride Level 103mmol/L (98-107) Carbon Dioxide Level 23mmol/L (21-32) Anion Gap 11 (6-14) Blood Urea Nitrogen 11mg/dL (7-20) Creatinine 0.9mg/dL (0.6-1.0) Estimated GFR (Cockcroft-Gault) 66.0 Glucose Level 109mg/dL (70-99) Calcium Level 9.2mg/dL (8.5-10.1) Microbiology 08/07/16 Blood Culture - Preliminary, Resulted NO GROWTH AFTER 2 DAYS 08/07/16 Urine Culture - Final, Complete 08/07/16 Urine Culture Result 1 ([facility]) - Final, Complete Medications Current Medications Sodium Chloride (Iv Sodium Chloride 0.9% 1000ml Bag) 1,000 ml @ 1,000 mls/hr Q1H IV Last administered on 08/05/16 18:26; Start 08/05/16 at 18:30; Stop at 19:29; Status DC Ondansetron HCl (Zofran) 4 mg 1X ONCE IV Last administered on 08/05/16 18:26 ; Start 08/05/16 at 18:30; Stop 08/05/16 at 18:31; Status DC Famotidine (Pepcid) 20 mg 1X ONCE IVP Last administered on 08/05/16 18:27; Start 08/05/16 at 18:30; Stop 08/05/16 at 18:31; Status DC Morphine Sulfate 4 mg 1X ONCE IV Last administered on 08/05/16 18:27; Start 08/05/16 at 18:30; Stop 08/05/16 at 18:31; Status DC Iohexol (Omnipaque 300 Mg/ml) 75 ml 1X ONCE IV Last administered on 08/05/16 19:07; Start 08/05/16 at 18:30; Stop 08/05/16 at 18:31; Status DC Info (Do NOT chart on this entry -- for MONITORING) 1 each PRN DAILY PRN MC SEE COMMENTS; Start 08/05/16 at 18:30; Stop 08/07/16 at 18:29; Status DC Morphine Sulfate 4 mg 1X ONCE IV Last administered on 08/05/16 20:15; Start 08/05/16 at 20:00; Stop 08/05/16 at 20:01; Status DC Ondansetron HCl 4 mg 4 mg 1X ONCE IV Last administered on 08/05/16 20:13; Start 08/05/16 at 20:00; Stop 08/05/16 at 20:01; Status DC Ertapenem (Invanz 1gm Ivpb For Omni) 50 ml @ 100 mls/hr 1X ONCE IV Last administered on 08/05/16 20:17; Start 08/05/16 at 20:00; Stop 08/05/16 at 20:29 ; Status DC Ondansetron HCl (Zofran) 4 mg PRN Q8HRS PRN IV NAUSEA/VOMITING; Start 08/05/16 at 20:15; Stop 08/05/16 at 22:38; Status DC Morphine Sulfate 4 mg 4 mg PRN Q2HR PRN IV PAIN Last administered on 08/06/16 06:30; Start 08/05/16 at 20:15; Stop 08/06/16 at 20:14; Status DC Sodium Chloride (Iv Sodium Chloride 0.9% 1000ml Bag) 1,000 ml @ 125 mls/hr Q8H IV Last administered on 08/06/16 09:10; Start 08/05/16 at 20:13; Stop at 20:12; Status DC Dexamethasone Sodium Phosphate (Decadron) 20 mg STK-MED ONCE .ROUTE ; Start at 20:36; Stop 08/05/16 at 20:37; Status DC Ondansetron HCl 4 mg 4 mg STK-MED ONCE .ROUTE ; Start 08/05/16 at 20:37; Stop at 20:38; Status DC Propofol (Diprivan) 20 ml @ As Directed STK-MED ONCE IV ; Start 08/05/16 at 20: 37; Stop 08/05/16 at 20:38; Status DC Lidocaine HCl 100 mg STK-MED ONCE .ROUTE ; Start 08/05/16 at 20:37; Stop at 20:38; Status DC Midazolam HCl (Versed) 2 mg STK-MED ONCE .ROUTE ; Start 08/05/16 at 20:37; Stop 08/05/16 at 20:38; Status DC Fentanyl Citrate (Fentanyl 5ml Vial) 250 mcg STK-MED ONCE .ROUTE ; Start at 20:37; Stop 08/05/16 at 20:38; Status DC Succinylcholine Chloride (Anectine) 200 mg STK-MED ONCE .ROUTE ; Start 08/05/16 at 20:37; Stop 08/05/16 at 20:38; Status DC Rocuronium [place] (Zemuron) 50 mg STK-MED ONCE .ROUTE ; Start 08/05/16 at 20:37 ; Stop 08/05/16 at 20:38; Status DC Ondansetron HCl (Zofran) 4 mg PRN Q6HRS PRN IV Nausea; Start 08/05/16 at 21:00 ; Stop 08/05/16 at 22:38; Status DC Fentanyl Citrate (Fentanyl 2ml Vial) 25 mcg PRN Q5MIN PRN IV MILD PAIN; Start 08/05/16 at 21:00; Stop 08/06/16 at 20:59; Status DC Fentanyl Citrate (Fentanyl 2ml Vial) 50 mcg PRN Q5MIN PRN IV MODERATE PAIN Last administered on 08/06/16t 12:55; Start 08/05/16 at 21:00; Stop 08/06/16 at 20:59; Status DC Morphine Sulfate 1 mg 1 mg PRN Q10MIN PRN IV SEVERE PAIN; Start 08/05/16 at 21: 00; Stop 08/06/16 at 20:59; Status DC Lactated Ringer's (Iv Lactated Ringers) 1,000 ml @ 0 mls/hr Q0M IV ; Start at 20:51; Stop 08/06/16 at 08:50; Status DC Lidocaine HCl 2 ml 1X PRN PRN ID IV START; Start 08/05/16 at 21:00; Stop at 20:59; Status DC Hydromorphone HCl (Dilaudid) 0.5 mg PRN Q10MIN PRN IV SEV PAIN,Second choice; Start 08/05/16 at 21:00; Stop 08/06/16 at 20:59; Status DC Prochlorperazine Edisylate 5 mg 5 mg PACU PRN PRN IV NAUSEA; Start 08/05/16 at 21:00; Stop 08/06/16 at 20:59; Status DC Acetaminophen 100 ml @ As Directed STK-MED ONCE IV ; Start 08/05/16 at 21:18; Stop 08/05/16 at 21:19; Status DC Cefoxitin Sodium 100 ml @ As Directed STK-MED ONCE IV ; Start 08/05/16 at 21:19 ; Stop 08/05/16 at 21:20; Status DC Cefoxitin Sodium/ Sodium Chloride (Mefoxin/Iv Sodium Chloride 0.9% 100ml) 100 ml @ 200 mls/hr 1X STAT IV ; Start 08/05/16 at 21:22; Stop 08/05/16 at 21:51; Status UNV Ephedrine Sulfate 50 mg STK-MED ONCE IV ; Start 08/05/16 at 21:36; Stop at 21:37; Status DC Bupivacaine HCl/ Epinephrine Bitart (Sensorcain-Mpf Epi 0.5%-1:[id number]) 30 ml STK -MED ONCE .ROUTE Last administered on 08/05/16t 21:40; Start 08/05/16 at 22:02 ; Stop 08/05/16 at 22:03; Status DC Neostigmine Methylsulfate 5 mg STK-MED ONCE .ROUTE ; Start 08/05/16 at 22:06; Stop 08/05/16 at 22:07; Status DC Glycopyrrolate (Robinul) 1 mg STK-MED ONCE .ROUTE ; Start 08/05/16 at 22:07; Stop 08/05/16 at 22:08; Status DC Desflurane (Suprane) 60 ml STK-MED ONCE IH ; Start 08/05/16 at 22:19; Stop 08/05 at 22:20; Status DC Lidocaine HCl 100 mg STK-MED ONCE .ROUTE ; Start 08/05/16 at 22:31; Stop at 22:32; Status DC Enoxaparin Sodium (Lovenox 40mg Syringe) 40 mg Q24H SQ Last administered on 09:10; Start 08/06/16 at 09:00; Stop 08/06/16 at 12:49; Status DC Sodium Chloride (Normal Saline Flush) 3 ml QSHIFT PRN IV AFTER MEDS AND BLOOD DRAWS; Start 08/05/16 at 22:45 Oxycodone/ Acetaminophen (Percocet 5/325) 2 tab PRN Q4HRS PRN PO SEVERE PAIN; Start 08/05/16 at 22:45 Ketorolac Tromethamine (Toradol) 30 mg PRN Q6HRS PRN IV PAIN Last administered on 08/08/16 03:12; Start 08/05/16 at 22:45; Stop 08/10/16 at 22:44 Hydromorphone HCl (Dilaudid) 0.2 mg PRN Q1HR PRN IV PAIN Last administered on 11:42; Start 08/05/16 at 22:45 Senna/Docusate Sodium (Senna Plus) 1 tab BID PO Last administered on 08/10/16 08:59; Start 08/06/16 at 09:00 Ondansetron HCl (Zofran) 4 mg PRN Q6HRS PRN IV NAUESA, 1ST CHOICE Last administered on 08/06/16 12:54; Start 08/05/16 at 22:45 Metoclopramide HCl (Reglan) 10 mg PRN Q6HRS PRN IV Nausea/Vomiting, 2nd Choice Last administered on 08/06/16 06:30; Start 08/05/16 at 22:45 Acetaminophen (Tylenol) 325 mg PRN Q6HRS PRN PO MILD PAIN / TEMP; Start at 10:00 Acetaminophen/ Hydrocodone Bitart (Lortab 5/325) 1 tab PRN Q6HRS PRN PO MODERATE PAIN Last administered on 08/10/16 08:58; Start 08/06/16 at 10:00 Hydralazine HCl (Apresoline) 10 mg PRN Q4HRS PRN IVP ELEVATED BP, SEE COMMENTS Last administered on 08/09/16 03:21; Start 08/06/16 at 10:00 Ondansetron HCl (Zofran) 4 mg PRN Q8HRS PRN IV NAUSEA/VOMITING; Start 08/06/16 at 10:00; Status UNV Albuterol Sulfate (Ventolin Neb Soln) 2.5 mg PRN Q4HRS PRN NEB SHORTNESS OF BREATH; Start 08/06/16 at 10:00 Enoxaparin Sodium (Lovenox 40mg Syringe) 40 mg DAILY SQ ; Start 08/07/16 at 09: 00; Status UNV Enoxaparin Sodium (Lovenox 40mg Syringe) 40 mg Q12HR SQ Last administered on 09:00; Start 08/06/16 at 21:00 Pantoprazole Sodium 40 mg 40 mg DAILYAC IVP Last administered on 08/09/16 06:01 ; Start 08/06/16 at 18:30; Stop 08/09/16 at 11:50; Status DC Sodium Chloride 1,000 ml @ 100 mls/hr Q10H IV Last administered on 08/07/16 20:54; Start 08/07/16 at 09:45; Stop 08/08/16 at 09:04; Status DC Potassium Chloride 100 ml @ 100 mls/hr Q1H IV Last administered on 08/07/16 14:00; Start 08/07/16 at 10:00; Stop 08/07/16 at 13:59; Status DC Piperacillin Sod/ Tazobactam Sod/ Sodium Chloride (Zosyn/Iv Sodium Chloride 0.9 % 50ml) 50 ml @ 100 mls/hr Q6HRS IV Last administered on 08/10/16 05:33; Start 08/07/16 at 20:30 Acetaminophen 650 mg 650 mg PRN Q6HRS PRN [place] MILD PAIN / TEMP Last administered on 08/07/16 20:52; Start 08/07/16 at 20:00 Potassium Chloride (KCl Premix 10meq) 100 ml @ 100 mls/hr Q1H IV Last administered on 08/08/16 16:26; Start 08/08/16 at 05:00; Stop 08/08/16 at 10:59 ; Status DC Iohexol (Omnipaque 300 Mg/ml) 60 ml 1X ONCE IV Last administered on 08/08/16 10:09; Start 08/08/16 at 08:45; Stop 08/08/16 at 08:46; Status DC Iohexol (Omnipaque 240 Mg/ml) 50 ml 1X ONCE PO Last administered on 08/08/16 10:09; Start 08/08/16 at 08:45; Stop 08/08/16 at 08:46; Status DC Info 1 each 1 each PRN DAILY PRN MC SEE COMMENTS; Start 08/08/16 at 09:00; Stop 08/10/16 at 08:59; Status DC Amino Acids/ Glycerin/ Electrolytes (Procalamine) 1,000 ml @ 80 mls/hr [id number] IV Last administered on 08/09/16 23:47; Start 08/08/16 at 09:15 Potassium Chloride 40 meq 40 meq 1X ONCE PO Last administered on 08/09/16 10: 40; Start 08/09/16 at 08:00; Stop 08/09/16 at 08:02; Status DC Potassium Chloride 50 ml @ 50 mls/hr 1X ONCE IV ; Start 08/09/16 at 08:00; Stop 08/09/16 at 08:59; Status UNV Potassium Chloride (KCl Premix 10meq) 100 ml @ 100 mls/hr Q1H IV Last administered on 08/09/16 13:48; Start 08/09/16 at 08:15; Stop 08/09/16 at 10:14; Status DC Pantoprazole Sodium (Protonix) 40 mg DAILYAC PO Last administered on 08/10/16 07:53; Start 08/10/16 at 07:30 Lisinopril (Prinivil) 20 mg DAILY PO Last administered on 08/10/16 08:59; Start 08/09/16 at 13:00 Diphenhydramine HCl (Benadryl) 50 mg 1X ONCE IVP Last administered on 23:12; Start 08/09/16 at 23:30; Stop 08/09/16 at 23:31; Status DC Diphenhydramine HCl (Benadryl) 25 mg PRN Q6HRS PRN IVP ITCHING Last administered on 08/10/16 03:30; Start 08/09/16 at 23:00 Neomycin/ Polymyxin/Bacitr/ Hydrocort (Cortisporin Topical) 1 mellissa PRN BID PRN TP itching; Start 08/09/16 at 23:00; Status Cancel Hydrocortisone (Cortaid) 1 mellissa PRN BID PRN TP ITCHING Last administered on t 23:38; Start 08/09/16 at 23:15 Active Scripts Active Reported Naproxen 500 Mg Tablet 1 Tab PO BID Lasix (Furosemide) 20 Mg Tablet 1 Tab PO DAILY Vitals/I & O Vital Sign - Last 24 Hours 08/09/16 08/09/16 08/09/16 08/09/16 13:48 15:00 17:21 18:30 Temp 99.7 99.7 Pulse 93 86 Resp 18 18 18 B/P 146/83 156/81 Pulse Ox 96 O2 Delivery Room Air Room Air 08/09/16 08/09/16 08/09/16 08/10/16 19:30 20:00 23:26 03:30 Temp 98.8 98.8 99.7 98.8 98.8 99.7 Pulse 88 94 100 Resp 18 18 18 B/P 148/84 134/93 161/87 Pulse Ox 96 93 96 O2 Delivery Room Air Room Air Room Air Room Air 08/10/16 08/10/16 08/10/16 08/10/16 07:00 08:00 08:59 10:12 Temp 100.9 100.9 Pulse 92 92 Resp 18 B/P 150/80 150/80 Pulse Ox 95 O2 Delivery Room Air Room Air Room Air 08/10/16 11:00 Temp 98.2 98.2 Pulse 92 Resp 18 B/P 128/77 Pulse Ox 95 O2 Delivery Room Air Intake and Output 08/09/16 08/09/16 08/10/16 15:00 23:00 07:00 Intake Total 118 ml 1215 ml Output Total 1475 ml 950 ml Balance 118 ml -1475 ml 265 ml MANAV OBANDO MD Aug 10, 2016 11:58
[2016-08-10 15:00] VITALS: BP 137/84
[2016-08-10] MEDS: AA 3%/ELECTROLYTE-TPN SOLN/GLY 1,000 ML IV SCH (17:31)
[2016-08-10 19:30] VITALS: BP 161/87
[2016-08-10 23:27] VITALS: BP 137/85
[2016-08-11] MEDS: PIPERACILLIN/TAZOBACTAM 3.375 GM in IV NORMAL SALINE 50ML 50 ML IV SCH ×2 (00:09→05:57)
[2016-08-11 03:30] VITALS: BP 134/80
[2016-08-11 04:35] LABS: BASO # 0.1 x10^3/uL (0.0-0.2); BASO % 1 % (0-3); EOS % 1 % (0-3); HEMATOCRIT 37.7 % (36.0-47.0); HEMOGLOBIN 12.8 g/dL (12.0-15.5); LYMPH % 11 % (24-48); MEAN CORPUSCULAR HEMOGLOBIN 29 pg (25-35); MEAN CORPUSCULAR HGB CONC 34 g/dL (31-37); MEAN CORPUSCULAR VOLUME 84 fL (79-100); MONO % 7 % (0-9); NEUT % 80 % (31-73); PLATELET COUNT 283 x10^3/uL (140-400); RED BLOOD COUNT 4.46 x10^6/uL (3.50-5.40); RED CELL DISTRIBUTION WIDTH 13.8 % (11.5-14.5); WHITE BLOOD COUNT 18.5 x10^3/uL (4.0-11.0)
[2016-08-11 05:33] LABS: CALCIUM 9.3 mg/dL (8.5-10.1); CREATININE 0.8 mg/dL (0.6-1.0); GFR 75.6; POTASSIUM 3.8 mmol/L (3.5-5.1)
[2016-08-11] MEDS: AA 3%/ELECTROLYTE-TPN SOLN/GLY 1,000 ML IV SCH (06:03)
[2016-08-11 07:00] VITALS: BP 149/83
--- NOTE | 2016-08-11 08:13 | PDOC ---
Infectious Disease Note Vital Sign Vital Signs Vital Signs Date Time Temp Pulse Resp B/P Pulse Ox O2 Delivery O2 Flow Rate FiO2 08/11/16 07:00 98.9 88 16 149/83 96 Room Air 98.9 Labs Lab Laboratory Tests Test 08/11/16 04:08 White Blood Count 18.5x10^3/uL (4.0-11.0) Red Blood Count 4.46x10^6/uL (3.50-5.40) Hemoglobin 12.8g/dL (12.0-15.5) Hematocrit 37.7% (36.0-47.0) Mean Corpuscular Volume 84fL (79-100) Mean Corpuscular Hemoglobin 29pg (25-35) Mean Corpuscular Hemoglobin Concent 34g/dL (31-37) Red Cell Distribution Width 13.8% (11.5-14.5) Platelet Count 283x10^3/uL (140-400) Neutrophils (%) (Auto) 80% (31-73) Lymphocytes (%) (Auto) 11% (24-48) Monocytes (%) (Auto) 7% (0-9) Eosinophils (%) (Auto) 1% (0-3) Basophils (%) (Auto) 1% (0-3) Neutrophils # (Auto) 14.8x10^3uL (1.8-7.7) Lymphocytes # (Auto) 2.0x10^3/uL (1.0-4.8) Monocytes # (Auto) 1.3x10^3/uL (0.0-1.1) Eosinophils # (Auto) 0.2x10^3/uL (0.0-0.7) Basophils # (Auto) 0.1x10^3/uL (0.0-0.2) Sodium Level 138mmol/L (136-145) Potassium Level 3.8mmol/L (3.5-5.1) Chloride Level 103mmol/L (98-107) Carbon Dioxide Level 24mmol/L (21-32) Anion Gap 11 (6-14) Blood Urea Nitrogen 10mg/dL (7-20) Creatinine 0.8mg/dL (0.6-1.0) Estimated GFR (Cockcroft-Gault) 75.6 Glucose Level 112mg/dL (70-99) Calcium Level 9.3mg/dL (8.5-10.1) Objective Assessment Leukocytosis likely reactive sec to ileus S/P Umbilical hernia surgery Fever Obesity Plan Plan of Care change zosyn to po augmentin supportive care if not better wbc by tomorrow then further workup d/w surgery CATHLEEN BLACK MD Aug 11, 2016 08:13
--- NOTE | 2016-08-11 09:09 | PDOC ---
[employer] 08/11/16 0909: SURGICAL PROGRESS NOTE Subjective tolerating diet had BM yesterday Vital Signs Vital Signs Date Time Temp Pulse Resp B/P Pulse Ox O2 Delivery O2 Flow Rate FiO2 08/11/16 07:00 98.9 88 16 149/83 96 Room Air 98.9 I&O Intake and Output 08/11/16 07:00 Intake Total 3860 ml Output Total 2100 ml Balance 1760 ml Intake Oral 1940 ml IV Total 960 ml Other 960 ml Output Urine Total 2100 ml # Voids 3 General: Alert, Oriented X3, Cooperative, No acute distress Abdomen: Soft, Other (lap sites without signs of infection, some ecchymosis to umbilical incisoin ) Labs Laboratory Tests Test 08/10/16 06:05 08/11/16 04:08 White Blood Count 17.9x10^3/uL (4.0-11.0) 18.5x10^3/uL (4.0-11.0) Red Blood Count 4.51x10^6/uL (3.50-5.40) 4.46x10^6/uL (3.50-5.40) Hemoglobin 12.6g/dL (12.0-15.5) 12.8g/dL (12.0-15.5) Hematocrit 38.8% (36.0-47.0) 37.7% (36.0-47.0) Mean Corpuscular Volume 86fL (79-100) 84fL (79-100) Mean Corpuscular Hemoglobin 28pg (25-35) 29pg (25-35) Mean Corpuscular Hemoglobin Concent 33g/dL (31-37) 34g/dL (31-37) Red Cell Distribution Width 13.6% (11.5-14.5) 13.8% (11.5-14.5) Platelet Count 251x10^3/uL (140-400) 283x10^3/uL (140-400) Neutrophils (%) (Auto) 81% (31-73) 80% (31-73) Lymphocytes (%) (Auto) 11% (24-48) 11% (24-48) Monocytes (%) (Auto) 7% (0-9) 7% (0-9) Eosinophils (%) (Auto) 1% (0-3) 1% (0-3) Basophils (%) (Auto) 1% (0-3) 1% (0-3) Neutrophils # (Auto) 14.4x10^3uL (1.8-7.7) 14.8x10^3uL (1.8-7.7) Lymphocytes # (Auto) 1.9x10^3/uL (1.0-4.8) 2.0x10^3/uL (1.0-4.8) Monocytes # (Auto) 1.3x10^3/uL (0.0-1.1) 1.3x10^3/uL (0.0-1.1) Eosinophils # (Auto) 0.1x10^3/uL (0.0-0.7) 0.2x10^3/uL (0.0-0.7) Basophils # (Auto) 0.1x10^3/uL (0.0-0.2) 0.1x10^3/uL (0.0-0.2) Segmented Neutrophils % 82% (35-66) Band Neutrophils % 1% (0-9) Lymphocytes % 13% (24-48) Monocytes % 4% (0-10) Platelet Estimate Adequate (ADEQUATE) Sodium Level 137mmol/L (136-145) 138mmol/L (136-145) Potassium Level 3.6mmol/L (3.5-5.1) 3.8mmol/L (3.5-5.1) Chloride Level 103mmol/L (98-107) 103mmol/L (98-107) Carbon Dioxide Level 23mmol/L (21-32) 24mmol/L (21-32) Anion Gap 11 (6-14) 11 (6-14) Blood Urea Nitrogen 11mg/dL (7-20) 10mg/dL (7-20) Creatinine 0.9mg/dL (0.6-1.0) 0.8mg/dL (0.6-1.0) Estimated GFR (Cockcroft-Gault) 66.0 75.6 Glucose Level 109mg/dL (70-99) 112mg/dL (70-99) Calcium Level 9.2mg/dL (8.5-10.1) 9.3mg/dL (8.5-10.1) Laboratory Tests Test 08/11/16 04:08 White Blood Count 18.5x10^3/uL (4.0-11.0) Red Blood Count 4.46x10^6/uL (3.50-5.40) Hemoglobin 12.8g/dL (12.0-15.5) Hematocrit 37.7% (36.0-47.0) Mean Corpuscular Volume 84fL (79-100) Mean Corpuscular Hemoglobin 29pg (25-35) Mean Corpuscular Hemoglobin Concent 34g/dL (31-37) Red Cell Distribution Width 13.8% (11.5-14.5) Platelet Count 283x10^3/uL (140-400) Neutrophils (%) (Auto) 80% (31-73) Lymphocytes (%) (Auto) 11% (24-48) Monocytes (%) (Auto) 7% (0-9) Eosinophils (%) (Auto) 1% (0-3) Basophils (%) (Auto) 1% (0-3) Neutrophils # (Auto) 14.8x10^3uL (1.8-7.7) Lymphocytes # (Auto) 2.0x10^3/uL (1.0-4.8) Monocytes # (Auto) 1.3x10^3/uL (0.0-1.1) Eosinophils # (Auto) 0.2x10^3/uL (0.0-0.7) Basophils # (Auto) 0.1x10^3/uL (0.0-0.2) Sodium Level 138mmol/L (136-145) Potassium Level 3.8mmol/L (3.5-5.1) Chloride Level 103mmol/L (98-107) Carbon Dioxide Level 24mmol/L (21-32) Anion Gap 11 (6-14) Blood Urea Nitrogen 10mg/dL (7-20) Creatinine 0.8mg/dL (0.6-1.0) Estimated GFR (Cockcroft-Gault) 75.6 Glucose Level 112mg/dL (70-99) Calcium Level 9.3mg/dL (8.5-10.1) Problem List Problems Medical Problems: (1) Incarcerated umbilical hernia Status: Acute (2) Small bowel obstruction Status: Acute Assessment/Plan s/p hernia repair fevers, leukocytosis, unknown origin ID following, changed to oral abx Problems: RAFA HERNÁNDEZ MD 08/11/16 1331: SURGICAL PROGRESS NOTE Assessment/Plan addendum i saw and examined her. no complaints. minimal abd pain. aravind po had another bm this am low grade temp 99.7 wbc ~18 appears well abd soft nd nt inc cdi a/p exam is benign. nontender. no indication that leukocytosis related to intra- abd pathology (ct neg, aravind po, nontender, no sig/unexpected pain, inc healing) Problems: MACO LAI APRN Aug 11, 2016 09:09 RAFA HERNÁNDEZ MD Aug 11, 2016 13:31
[2016-08-11] MEDS: AMOXICILLIN/K CLAV 875/125MG TABLET. PO SCH ×2 (09:12→21:15)
[2016-08-11] MEDS: DIPHENHYDRAMINE 50 MG/ML VIAL IVP PRN (09:13)
[2016-08-11] MEDS: PANTOPRAZOLE 40 MG TABLET. PO SCH (09:13)
[2016-08-11] MEDS: SENNOSIDES/DOCUSATE 8.6/50MG TABLET. PO SCH ×2 (09:14→21:16)
[2016-08-11] MEDS: LISINOPRIL 20 MG TABLET PO SCH (09:14)
[2016-08-11] MEDS: ENOXAPARIN 40 MG/0.4 ML DISP.SYRIN. SQ SCH ×2 (09:18→21:18)
[2016-08-11 11:00] VITALS: BP 118/68
--- NOTE | 2016-08-11 11:34 | PDOC ---
PROGRESS NOTES Chief Complaint Chief Complaint 1. Small bowel obstruction due to incarcerated umbilical hernia, Status post emergent incarcerated incisional hernia repair with mesh placement by Dr. Rich. 2. hypokalemia 3. Intractable abdominal pain due to 1. 4. GERD. 5. obesity 6. CKD 3 7. SIRS with 1 PLAN: fu with sx gi soft dc ppn zosyn started on 08/07 night given fever. ucx, bcx neg abd/pelvis CTis ok. no further intervention advance diet to gi soft on 08/09 clinically better, still low grade fever, high wbc, ID consulted, changed zosyn to augmentin hope fever wbc better and dc home History of Present Illness History of Present Illness fever since 08/07 night high wbc + BM, had little flatus pain is ok K better Vitals Vitals Vital Signs Date Time Temp Pulse Resp B/P Pulse Ox O2 Delivery O2 Flow Rate FiO2 08/11/16 11:00 99.7 88 16 118/68 96 Room Air 99.7 Physical Exam General: Alert, Oriented X3, Cooperative, No acute distress Heart: Regular rate, Normal S1, Normal S2 Lungs: Clear, Wheezing Abdomen: Soft, Other (lap sites without signs of infection, some ecchymosis to umbilical incisoin ) Extremities: No clubbing, No cyanosis Skin: No rashes Labs LABS Laboratory Tests Test 08/11/16 04:08 White Blood Count 18.5x10^3/uL (4.0-11.0) Red Blood Count 4.46x10^6/uL (3.50-5.40) Hemoglobin 12.8g/dL (12.0-15.5) Hematocrit 37.7% (36.0-47.0) Mean Corpuscular Volume 84fL (79-100) Mean Corpuscular Hemoglobin 29pg (25-35) Mean Corpuscular Hemoglobin Concent 34g/dL (31-37) Red Cell Distribution Width 13.8% (11.5-14.5) Platelet Count 283x10^3/uL (140-400) Neutrophils (%) (Auto) 80% (31-73) Lymphocytes (%) (Auto) 11% (24-48) Monocytes (%) (Auto) 7% (0-9) Eosinophils (%) (Auto) 1% (0-3) Basophils (%) (Auto) 1% (0-3) Neutrophils # (Auto) 14.8x10^3uL (1.8-7.7) Lymphocytes # (Auto) 2.0x10^3/uL (1.0-4.8) Monocytes # (Auto) 1.3x10^3/uL (0.0-1.1) Eosinophils # (Auto) 0.2x10^3/uL (0.0-0.7) Basophils # (Auto) 0.1x10^3/uL (0.0-0.2) Sodium Level 138mmol/L (136-145) Potassium Level 3.8mmol/L (3.5-5.1) Chloride Level 103mmol/L (98-107) Carbon Dioxide Level 24mmol/L (21-32) Anion Gap 11 (6-14) Blood Urea Nitrogen 10mg/dL (7-20) Creatinine 0.8mg/dL (0.6-1.0) Estimated GFR (Cockcroft-Gault) 75.6 Glucose Level 112mg/dL (70-99) Calcium Level 9.3mg/dL (8.5-10.1) Review of Systems Review of Systems no fever, chills, sob or chest pain Assessment and Plan Assessmemt and Plan Problems Medical Problems: (1) Incarcerated umbilical hernia Status: Acute (2) Small bowel obstruction Status: Acute Problems: Comment Review of Relevant I have reviewed the following items jourdan (where applicable) has been applied. Labs Laboratory Tests Test 08/10/16 06:05 08/11/16 04:08 White Blood Count 17.9x10^3/uL (4.0-11.0) 18.5x10^3/uL (4.0-11.0) Red Blood Count 4.51x10^6/uL (3.50-5.40) 4.46x10^6/uL (3.50-5.40) Hemoglobin 12.6g/dL (12.0-15.5) 12.8g/dL (12.0-15.5) Hematocrit 38.8% (36.0-47.0) 37.7% (36.0-47.0) Mean Corpuscular Volume 86fL (79-100) 84fL (79-100) Mean Corpuscular Hemoglobin 28pg (25-35) 29pg (25-35) Mean Corpuscular Hemoglobin Concent 33g/dL (31-37) 34g/dL (31-37) Red Cell Distribution Width 13.6% (11.5-14.5) 13.8% (11.5-14.5) Platelet Count 251x10^3/uL (140-400) 283x10^3/uL (140-400) Neutrophils (%) (Auto) 81% (31-73) 80% (31-73) Lymphocytes (%) (Auto) 11% (24-48) 11% (24-48) Monocytes (%) (Auto) 7% (0-9) 7% (0-9) Eosinophils (%) (Auto) 1% (0-3) 1% (0-3) Basophils (%) (Auto) 1% (0-3) 1% (0-3) Neutrophils # (Auto) 14.4x10^3uL (1.8-7.7) 14.8x10^3uL (1.8-7.7) Lymphocytes # (Auto) 1.9x10^3/uL (1.0-4.8) 2.0x10^3/uL (1.0-4.8) Monocytes # (Auto) 1.3x10^3/uL (0.0-1.1) 1.3x10^3/uL (0.0-1.1) Eosinophils # (Auto) 0.1x10^3/uL (0.0-0.7) 0.2x10^3/uL (0.0-0.7) Basophils # (Auto) 0.1x10^3/uL (0.0-0.2) 0.1x10^3/uL (0.0-0.2) Segmented Neutrophils % 82% (35-66) Band Neutrophils % 1% (0-9) Lymphocytes % 13% (24-48) Monocytes % 4% (0-10) Platelet Estimate Adequate (ADEQUATE) Sodium Level 137mmol/L (136-145) 138mmol/L (136-145) Potassium Level 3.6mmol/L (3.5-5.1) 3.8mmol/L (3.5-5.1) Chloride Level 103mmol/L (98-107) 103mmol/L (98-107) Carbon Dioxide Level 23mmol/L (21-32) 24mmol/L (21-32) Anion Gap 11 (6-14) 11 (6-14) Blood Urea Nitrogen 11mg/dL (7-20) 10mg/dL (7-20) Creatinine 0.9mg/dL (0.6-1.0) 0.8mg/dL (0.6-1.0) Estimated GFR (Cockcroft-Gault) 66.0 75.6 Glucose Level 109mg/dL (70-99) 112mg/dL (70-99) Calcium Level 9.2mg/dL (8.5-10.1) 9.3mg/dL (8.5-10.1) Laboratory Tests Test 08/11/16 04:08 White Blood Count 18.5x10^3/uL (4.0-11.0) Red Blood Count 4.46x10^6/uL (3.50-5.40) Hemoglobin 12.8g/dL (12.0-15.5) Hematocrit 37.7% (36.0-47.0) Mean Corpuscular Volume 84fL (79-100) Mean Corpuscular Hemoglobin 29pg (25-35) Mean Corpuscular Hemoglobin Concent 34g/dL (31-37) Red Cell Distribution Width 13.8% (11.5-14.5) Platelet Count 283x10^3/uL (140-400) Neutrophils (%) (Auto) 80% (31-73) Lymphocytes (%) (Auto) 11% (24-48) Monocytes (%) (Auto) 7% (0-9) Eosinophils (%) (Auto) 1% (0-3) Basophils (%) (Auto) 1% (0-3) Neutrophils # (Auto) 14.8x10^3uL (1.8-7.7) Lymphocytes # (Auto) 2.0x10^3/uL (1.0-4.8) Monocytes # (Auto) 1.3x10^3/uL (0.0-1.1) Eosinophils # (Auto) 0.2x10^3/uL (0.0-0.7) Basophils # (Auto) 0.1x10^3/uL (0.0-0.2) Sodium Level 138mmol/L (136-145) Potassium Level 3.8mmol/L (3.5-5.1) Chloride Level 103mmol/L (98-107) Carbon Dioxide Level 24mmol/L (21-32) Anion Gap 11 (6-14) Blood Urea Nitrogen 10mg/dL (7-20) Creatinine 0.8mg/dL (0.6-1.0) Estimated GFR (Cockcroft-Gault) 75.6 Glucose Level 112mg/dL (70-99) Calcium Level 9.3mg/dL (8.5-10.1) Microbiology 08/07/16 Blood Culture - Preliminary, Resulted NO GROWTH AFTER 3 DAYS 08/07/16 Urine Culture - Final, Complete 08/07/16 Urine Culture Result 1 ([facility]) - Final, Complete Medications Current Medications Sodium Chloride (Iv Sodium Chloride 0.9% 1000ml Bag) 1,000 ml @ 1,000 mls/hr Q1H IV Last administered on 08/05/16 18:26; Start 08/05/16 at 18:30; Stop at 19:29; Status DC Ondansetron HCl (Zofran) 4 mg 1X ONCE IV Last administered on 08/05/16 18:26 ; Start 08/05/16 at 18:30; Stop 08/05/16 at 18:31; Status DC Famotidine (Pepcid) 20 mg 1X ONCE IVP Last administered on 08/05/16 18:27; Start 08/05/16 at 18:30; Stop 08/05/16 at 18:31; Status DC Morphine Sulfate 4 mg 1X ONCE IV Last administered on 08/05/16 18:27; Start 08/05/16 at 18:30; Stop 08/05/16 at 18:31; Status DC Iohexol (Omnipaque 300 Mg/ml) 75 ml 1X ONCE IV Last administered on 08/05/16 19:07; Start 08/05/16 at 18:30; Stop 08/05/16 at 18:31; Status DC Info (Do NOT chart on this entry -- for MONITORING) 1 each PRN DAILY PRN MC SEE COMMENTS; Start 08/05/16 at 18:30; Stop 08/07/16 at 18:29; Status DC Morphine Sulfate 4 mg 1X ONCE IV Last administered on 08/05/16 20:15; Start 08/05/16 at 20:00; Stop 08/05/16 at 20:01; Status DC Ondansetron HCl 4 mg 4 mg 1X ONCE IV Last administered on 08/05/16 20:13; Start 08/05/16 at 20:00; Stop 08/05/16 at 20:01; Status DC Ertapenem (Invanz 1gm Ivpb For Omni) 50 ml @ 100 mls/hr 1X ONCE IV Last administered on 08/05/16 20:17; Start 08/05/16 at 20:00; Stop 08/05/16 at 20:29 ; Status DC Ondansetron HCl (Zofran) 4 mg PRN Q8HRS PRN IV NAUSEA/VOMITING; Start 08/05/16 at 20:15; Stop 08/05/16 at 22:38; Status DC Morphine Sulfate 4 mg 4 mg PRN Q2HR PRN IV PAIN Last administered on 08/06/16 06:30; Start 08/05/16 at 20:15; Stop 08/06/16 at 20:14; Status DC Sodium Chloride (Iv Sodium Chloride 0.9% 1000ml Bag) 1,000 ml @ 125 mls/hr Q8H IV Last administered on 08/06/16 09:10; Start 08/05/16 at 20:13; Stop at 20:12; Status DC Dexamethasone Sodium Phosphate (Decadron) 20 mg STK-MED ONCE .ROUTE ; Start at 20:36; Stop 08/05/16 at 20:37; Status DC Ondansetron HCl 4 mg 4 mg STK-MED ONCE .ROUTE ; Start 08/05/16 at 20:37; Stop at 20:38; Status DC Propofol (Diprivan) 20 ml @ As Directed STK-MED ONCE IV ; Start 08/05/16 at 20: 37; Stop 08/05/16 at 20:38; Status DC Lidocaine HCl 100 mg STK-MED ONCE .ROUTE ; Start 08/05/16 at 20:37; Stop at 20:38; Status DC Midazolam HCl (Versed) 2 mg STK-MED ONCE .ROUTE ; Start 08/05/16 at 20:37; Stop 08/05/16 at 20:38; Status DC Fentanyl Citrate (Fentanyl 5ml Vial) 250 mcg STK-MED ONCE .ROUTE ; Start at 20:37; Stop 08/05/16 at 20:38; Status DC Succinylcholine Chloride (Anectine) 200 mg STK-MED ONCE .ROUTE ; Start 08/05/16 at 20:37; Stop 08/05/16 at 20:38; Status DC Rocuronium [place] (Zemuron) 50 mg STK-MED ONCE .ROUTE ; Start 08/05/16 at 20:37 ; Stop 08/05/16 at 20:38; Status DC Ondansetron HCl (Zofran) 4 mg PRN Q6HRS PRN IV Nausea; Start 08/05/16 at 21:00 ; Stop 08/05/16 at 22:38; Status DC Fentanyl Citrate (Fentanyl 2ml Vial) 25 mcg PRN Q5MIN PRN IV MILD PAIN; Start 08/05/16 at 21:00; Stop 08/06/16 at 20:59; Status DC Fentanyl Citrate (Fentanyl 2ml Vial) 50 mcg PRN Q5MIN PRN IV MODERATE PAIN Last administered on 08/06/16t 12:55; Start 08/05/16 at 21:00; Stop 08/06/16 at 20:59; Status DC Morphine Sulfate 1 mg 1 mg PRN Q10MIN PRN IV SEVERE PAIN; Start 08/05/16 at 21: 00; Stop 08/06/16 at 20:59; Status DC Lactated Ringer's (Iv Lactated Ringers) 1,000 ml @ 0 mls/hr Q0M IV ; Start at 20:51; Stop 08/06/16 at 08:50; Status DC Lidocaine HCl 2 ml 1X PRN PRN ID IV START; Start 08/05/16 at 21:00; Stop at 20:59; Status DC Hydromorphone HCl (Dilaudid) 0.5 mg PRN Q10MIN PRN IV SEV PAIN,Second choice; Start 08/05/16 at 21:00; Stop 08/06/16 at 20:59; Status DC Prochlorperazine Edisylate 5 mg 5 mg PACU PRN PRN IV NAUSEA; Start 08/05/16 at 21:00; Stop 08/06/16 at 20:59; Status DC Acetaminophen 100 ml @ As Directed STK-MED ONCE IV ; Start 08/05/16 at 21:18; Stop 08/05/16 at 21:19; Status DC Cefoxitin Sodium 100 ml @ As Directed STK-MED ONCE IV ; Start 08/05/16 at 21:19 ; Stop 08/05/16 at 21:20; Status DC Cefoxitin Sodium/ Sodium Chloride (Mefoxin/Iv Sodium Chloride 0.9% 100ml) 100 ml @ 200 mls/hr 1X STAT IV ; Start 08/05/16 at 21:22; Stop 08/05/16 at 21:51; Status UNV Ephedrine Sulfate 50 mg STK-MED ONCE IV ; Start 08/05/16 at 21:36; Stop at 21:37; Status DC Bupivacaine HCl/ Epinephrine Bitart (Sensorcain-Mpf Epi 0.5%-1:635000) 30 ml STK -MED ONCE .ROUTE Last administered on 08/05/16t 21:40; Start 08/05/16 at 22:02 ; Stop 08/05/16 at 22:03; Status DC Neostigmine Methylsulfate 5 mg STK-MED ONCE .ROUTE ; Start 08/05/16 at 22:06; Stop 08/05/16 at 22:07; Status DC Glycopyrrolate (Robinul) 1 mg STK-MED ONCE .ROUTE ; Start 08/05/16 at 22:07; Stop 08/05/16 at 22:08; Status DC Desflurane (Suprane) 60 ml STK-MED ONCE IH ; Start 08/05/16 at 22:19; Stop 08/05 at 22:20; Status DC Lidocaine HCl 100 mg STK-MED ONCE .ROUTE ; Start 08/05/16 at 22:31; Stop at 22:32; Status DC Enoxaparin Sodium (Lovenox 40mg Syringe) 40 mg Q24H SQ Last administered on t 09:10; Start 08/06/16 at 09:00; Stop 08/06/16 at 12:49; Status DC Sodium Chloride (Normal Saline Flush) 3 ml QSHIFT PRN IV AFTER MEDS AND BLOOD DRAWS; Start 08/05/16 at 22:45 Oxycodone/ Acetaminophen (Percocet 5/325) 2 tab PRN Q4HRS PRN PO SEVERE PAIN; Start 08/05/16 at 22:45 Ketorolac Tromethamine (Toradol) 30 mg PRN Q6HRS PRN IV PAIN Last administered on 08/08/16 03:12; Start 08/05/16 at 22:45; Stop 08/10/16 at 22:44; Status DC Hydromorphone HCl (Dilaudid) 0.2 mg PRN Q1HR PRN IV PAIN Last administered on 11:42; Start 08/05/16 at 22:45; Stop 08/11/16 at 09:37; Status DC Senna/Docusate Sodium (Senna Plus) 1 tab BID PO Last administered on 08/11/16 09:14; Start 08/06/16 at 09:00 Ondansetron HCl (Zofran) 4 mg PRN Q6HRS PRN IV NAUESA, 1ST CHOICE Last administered on 08/06/16 12:54; Start 08/05/16 at 22:45 Metoclopramide HCl (Reglan) 10 mg PRN Q6HRS PRN IV Nausea/Vomiting, 2nd Choice Last administered on 08/06/16 06:30; Start 08/05/16 at 22:45 Acetaminophen (Tylenol) 325 mg PRN Q6HRS PRN PO MILD PAIN / TEMP; Start at 10:00 Acetaminophen/ Hydrocodone Bitart (Lortab 5/325) 1 tab PRN Q6HRS PRN PO MODERATE PAIN Last administered on 08/10/16 08:58; Start 08/06/16 at 10:00 Hydralazine HCl (Apresoline) 10 mg PRN Q4HRS PRN IVP ELEVATED BP, SEE COMMENTS Last administered on 08/09/16 03:21; Start 08/06/16 at 10:00 Ondansetron HCl (Zofran) 4 mg PRN Q8HRS PRN IV NAUSEA/VOMITING; Start 08/06/16 at 10:00; Status UNV Albuterol Sulfate (Ventolin Neb Soln) 2.5 mg PRN Q4HRS PRN NEB SHORTNESS OF BREATH; Start 08/06/16 at 10:00 Enoxaparin Sodium (Lovenox 40mg Syringe) 40 mg DAILY SQ ; Start 08/07/16 at 09: 00; Status UNV Enoxaparin Sodium (Lovenox 40mg Syringe) 40 mg Q12HR SQ Last administered on 09:18; Start 08/06/16 at 21:00 Pantoprazole Sodium 40 mg 40 mg DAILYAC IVP Last administered on 08/09/16 06:01 ; Start 08/06/16 at 18:30; Stop 08/09/16 at 11:50; Status DC Sodium Chloride 1,000 ml @ 100 mls/hr Q10H IV Last administered on 08/07/16 20:54; Start 08/07/16 at 09:45; Stop 08/08/16 at 09:04; Status DC Potassium Chloride 100 ml @ 100 mls/hr Q1H IV Last administered on 08/07/16 14:00; Start 08/07/16 at 10:00; Stop 08/07/16 at 13:59; Status DC Piperacillin Sod/ Tazobactam Sod/ Sodium Chloride (Zosyn/Iv Sodium Chloride 0.9 % 50ml) 50 ml @ 100 mls/hr Q6HRS IV Last administered on 08/11/16 05:57; Start 08/07/16 at 20:30; Stop 08/11/16 at 08:14; Status DC Acetaminophen 650 mg 650 mg PRN Q6HRS PRN ME MILD PAIN / TEMP Last administered on 08/07/16 20:52; Start 08/07/16 at 20:00 Potassium Chloride (KCl Premix 10meq) 100 ml @ 100 mls/hr Q1H IV Last administered on 08/08/16 16:26; Start 08/08/16 at 05:00; Stop 08/08/16 at 10:59 ; Status DC Iohexol (Omnipaque 300 Mg/ml) 60 ml 1X ONCE IV Last administered on 08/08/16 10:09; Start 08/08/16 at 08:45; Stop 08/08/16 at 08:46; Status DC Iohexol (Omnipaque 240 Mg/ml) 50 ml 1X ONCE PO Last administered on 08/08/16 10:09; Start 08/08/16 at 08:45; Stop 08/08/16 at 08:46; Status DC Info 1 each 1 each PRN DAILY PRN MC SEE COMMENTS; Start 08/08/16 at 09:00; Stop 08/10/16 at 08:59; Status DC Amino Acids/ Glycerin/ Electrolytes (Procalamine) 1,000 ml @ 80 mls/hr [id number] IV Last administered on 08/11/16 06:03; Start 08/08/16 at 09:15; Stop 08/11/16 at 09:37; Status DC Potassium Chloride 40 meq 40 meq 1X ONCE PO Last administered on 08/09/16 10: 40; Start 08/09/16 at 08:00; Stop 08/09/16 at 08:02; Status DC Potassium Chloride 50 ml @ 50 mls/hr 1X ONCE IV ; Start 08/09/16 at 08:00; Stop 08/09/16 at 08:59; Status UNV Potassium Chloride (KCl Premix 10meq) 100 ml @ 100 mls/hr Q1H IV Last administered on 08/09/16 13:48; Start 08/09/16 at 08:15; Stop 08/09/16 at 10:14; Status DC Pantoprazole Sodium (Protonix) 40 mg DAILYAC PO Last administered on 08/11/16 09:13; Start 08/10/16 at 07:30 Lisinopril (Prinivil) 20 mg DAILY PO Last administered on 08/11/16 09:14; Start 08/09/16 at 13:00 Diphenhydramine HCl (Benadryl) 50 mg 1X ONCE IVP Last administered on 23:12; Start 08/09/16 at 23:30; Stop 08/09/16 at 23:31; Status DC Diphenhydramine HCl (Benadryl) 25 mg PRN Q6HRS PRN IVP ITCHING Last administered on 08/11/16 09:13; Start 08/09/16 at 23:00 Neomycin/ Polymyxin/Bacitr/ Hydrocort (Cortisporin Topical) 1 mellissa PRN BID PRN TP itching; Start 08/09/16 at 23:00; Status Cancel Hydrocortisone (Cortaid) 1 mellissa PRN BID PRN TP ITCHING Last administered on 23:38; Start 08/09/16 at 23:15 Amoxicillin/ Clavulanate Potassium (Augmentin 875/ 125mg) 1 tab BID PO Last administered on 08/11/16 09:12; Start 08/11/16 at 09:00 Active Scripts Active Reported Naproxen 500 Mg Tablet 1 Tab PO BID Lasix (Furosemide) 20 Mg Tablet 1 Tab PO DAILY Vitals/I & O Vital Sign - Last 24 Hours 08/10/16 08/10/16 08/10/16 08/10/16 15:00 19:30 19:35 23:27 Temp 98.2 97.9 99.3 98.2 97.9 99.3 Pulse 85 90 86 Resp 18 20 18 B/P 137/84 161/87 137/85 Pulse Ox 98 98 96 O2 Delivery Room Air Room Air Room Air Room Air 08/11/16 08/11/16 08/11/16 08/11/16 03:30 07:00 09:14 11:00 Temp 98.5 98.9 99.7 98.5 98.9 99.7 Pulse 89 88 88 88 Resp 18 16 16 B/P 134/80 149/83 149/83 118/68 Pulse Ox 96 96 96 O2 Delivery Room Air Room Air Room Air Intake and Output 08/10/16 08/10/16 08/11/16 15:00 23:00 07:00 Intake Total 900 ml 2960 ml Output Total 650 ml 800 ml 650 ml Balance -650 ml 100 ml 2310 ml MANAV OBANDO MD Aug 11, 2016 11:34
[2016-08-11] MEDS: HYDROCODONE/APAP 5/325MG TABLET. PO PRN ×2 (11:59→21:16)
[2016-08-11 15:00] VITALS: BP 120/74
[2016-08-11 19:00] VITALS: BP 133/81
[2016-08-11 23:00] VITALS: BP 121/65
--- NOTE | 2016-08-12 02:14 | CONS ---
DATE OF CONSULTATION: 08/11/2016 REQUESTING PHYSICIAN: Dr. Johnson. REASON FOR CONSULTATION: Fever and leukocytosis. HISTORY OF PRESENT ILLNESS: This is a 50-year-old female who came in with umbilical hernia with incarceration. The patient underwent surgery for incarcerated incisional hernia with small-bowel obstruction on 08/05/2016. The patient's postoperative course was complicated by ileus, eventually bowel started working. The patient is now getting diet and white count was still high, hence consultation. The patient denies any nausea, vomiting, denies any diarrhea, denies any chest pain, abdominal pain, urinary symptoms or bowel symptoms. She says she is feeling actually pretty good. PAST SURGICAL HISTORY: She has had hysterectomy, otherwise unremarkable. SOCIAL HISTORY: Negative for smoking, alcohol, illicit drug use. ALLERGIES: No known drug allergies. CURRENT MEDICATIONS: Reviewed. The patient is on Zosyn. REVIEW OF SYSTEMS: As per HPI, all other systems reviewed are negative. PHYSICAL EXAMINATION: GENERAL: Alert, oriented female, not in distress. VITAL SIGNS: Stable, afebrile. The patient did have a temperature of 100.9 yesterday morning. HEENT: Anicteric. NECK: Supple, no JVP, no lymphadenopathy. LUNGS: Clear. HEART: S1, S2 regular. ABDOMEN: Benign. EXTREMITIES: No edema, cyanosis. SKIN: Unremarkable. Incisions are unremarkable. There are no signs of infection. NEUROLOGIC: Intact. LABORATORY DATA: White count is 18.5, hemoglobin 12.8, platelets are normal. BUN and creatinine are normal. Urinalysis unremarkable. Cultures are negative. The patient had a CT scan done on 08/08/2016, which was not showing any signs of abscess or infection. Chest x-ray unremarkable for any acute changes. IMPRESSION: 1. Leukocytosis, most likely to be reactive secondary to ileus. It should start improving now. I do not see any signs of infection. 2. Low-grade fever, which has improved. 3. Status post umbilical hernia surgery. 4. Obesity. RECOMMENDATION: Would scale down to Augmentin if white count should improve by tomorrow. If it does not improve, then we may have to do repeat CT or add ____MRSA drug. Thank you very much, Dr. Johnson, for giving me the opportunity to participate in this patient's care. CATHLEEN BLACK MD DR: NINOSKA/robert JOB#: [id number] / [id number]
[2016-08-12 03:00] VITALS: BP 133/75
[2016-08-12 05:17] LABS: BASO # 0.1 x10^3/uL (0.0-0.2); BASO % 0 % (0-3); EOS % 1 % (0-3); HEMATOCRIT 39.2 % (36.0-47.0); HEMOGLOBIN 12.6 g/dL (12.0-15.5); LYMPH # 2.2 x10^3/uL (1.0-4.8); LYMPH % 13 % (24-48); MEAN CORPUSCULAR HEMOGLOBIN 28 pg (25-35); MEAN CORPUSCULAR HGB CONC 32 g/dL (31-37); MEAN CORPUSCULAR VOLUME 87 fL (79-100); MONO % 9 % (0-9); NEUT % 76 % (31-73); PLATELET COUNT 338 x10^3/uL (140-400); RED BLOOD COUNT 4.49 x10^6/uL (3.50-5.40); RED CELL DISTRIBUTION WIDTH 13.9 % (11.5-14.5); WHITE BLOOD COUNT 16.2 x10^3/uL (4.0-11.0)
[2016-08-12 05:42] LABS: CALCIUM 9.4 mg/dL (8.5-10.1); CREATININE 0.9 mg/dL (0.6-1.0)
[2016-08-12 07:00] VITALS: BP 125/77
[2016-08-12] MEDS: AMOXICILLIN/K CLAV 875/125MG TABLET. PO SCH (08:06)
[2016-08-12] MEDS: LISINOPRIL 20 MG TABLET PO SCH (08:06)
[2016-08-12] MEDS: SENNOSIDES/DOCUSATE 8.6/50MG TABLET. PO SCH (08:06)
[2016-08-12] MEDS: PANTOPRAZOLE 40 MG TABLET. PO SCH (08:06)
[2016-08-12] MEDS: ENOXAPARIN 40 MG/0.4 ML DISP.SYRIN. SQ SCH (08:07)
--- NOTE | 2016-08-12 10:08 | PDOC ---
Provider Note Provider Note SURG POD 7 no complaints other than "old foot problem" (has an ice pack on her right ankle) taking regular diet, bowels fx belly soft, incision c/d home today from surgical standpoint f/u with Dr Layla SOARES,CORNELIO Ross MD Aug 12, 2016 10:08
[2016-08-12 11:00] VITALS: BP 130/84
--- NOTE | 2016-08-12 11:57 | PDOC ---
Infectious Disease Note Subjective Subjective c/o chronic right foot pain, otherwise feeling alright Small bowel movements Tolerating diet ROS ROS GEN: Denies fevers, chills, sweats CV: Denies chest pain RESP: Denies shortness of air, cough GI: Denies n/v Vital Sign Vital Signs Vital Signs Date Time Temp Pulse Resp B/P Pulse Ox O2 Delivery O2 Flow Rate FiO2 08/12/16 08:06 87 133/75 08/12/16 08:00 Room Air 08/12/16 07:00 98.6 18 94 98.6 Physical Exam PHYSICAL EXAM GENERAL: Propped up in bed, smiling HEENT: OC/OP pink and moist, missing teeth NECK: Supple, no JVD, no LN LUNGS: Clear HEART: S1S2, no gallop, no murmur ABD: Mildly distended, BS present, soft, NT to light palpation. Lap sites/steri strips CERTIFIED TECHNICIAN: Alert, oriented x 3, no focal neurologic deficit SKIN: No rash IV: ok Labs Lab Laboratory Tests Test 08/12/16 04:25 White Blood Count 16.2x10^3/uL (4.0-11.0) Red Blood Count 4.49x10^6/uL (3.50-5.40) Hemoglobin 12.6g/dL (12.0-15.5) Hematocrit 39.2% (36.0-47.0) Mean Corpuscular Volume 87fL (79-100) Mean Corpuscular Hemoglobin 28pg (25-35) Mean Corpuscular Hemoglobin Concent 32g/dL (31-37) Red Cell Distribution Width 13.9% (11.5-14.5) Platelet Count 338x10^3/uL (140-400) Neutrophils (%) (Auto) 76% (31-73) Lymphocytes (%) (Auto) 13% (24-48) Monocytes (%) (Auto) 9% (0-9) Eosinophils (%) (Auto) 1% (0-3) Basophils (%) (Auto) 0% (0-3) Neutrophils # (Auto) 12.3x10^3uL (1.8-7.7) Lymphocytes # (Auto) 2.2x10^3/uL (1.0-4.8) Monocytes # (Auto) 1.4x10^3/uL (0.0-1.1) Eosinophils # (Auto) 0.2x10^3/uL (0.0-0.7) Basophils # (Auto) 0.1x10^3/uL (0.0-0.2) Sodium Level 141mmol/L (136-145) Potassium Level 4.0mmol/L (3.5-5.1) Chloride Level 103mmol/L (98-107) Carbon Dioxide Level 27mmol/L (21-32) Anion Gap 11 (6-14) Blood Urea Nitrogen 11mg/dL (7-20) Creatinine 0.9mg/dL (0.6-1.0) Estimated GFR (Cockcroft-Gault) 66.0 Glucose Level 93mg/dL (70-99) Calcium Level 9.4mg/dL (8.5-10.1) Micro URINE CULTURE RES 1 Final Comment No growth in 48 hours. BLOOD CULTURE Preliminary NO GROWTH AFTER 4 DAYS Objective Assessment Leukocytosis likely reactive sec to ileus, better s/p umbilical hernia surgery, 08/05 - wound is clean Fever. improved Obesity yeast on skin Plan Plan of Care po Augmentin for 6 more days Po diflucan for 6 days after d/c first dose now Ok to d/c home F/u ID office one week [phone] Attending Co-Sign Attending Co-Sign The patient was seen and interviewed as well as examined at the bedside. The chart was reviewed. The case was discussed. Agree with the plan of care. FANNY BAZZI APRN Aug 12, 2016 11:57 MICHELLE SIN MD Aug 12, 2016 12:57
[2016-08-12] MEDS ORDERED: FLUCONAZOLE 100 MG TABLET. PO SCH (13:00)
[2016-08-12 15:00] VITALS: BP 103/65
--- NOTE | 2016-08-12 15:21 | PDOC ---
PROGRESS NOTES Chief Complaint Chief Complaint Incarcerated umbilical hernia 1. Incarcerated umbilical hernia: s/p emergent repair with mesh placement on by Dr. Rich. recovering appropriately 2. Fever: resolved. cont Augmentin as per ID service. 3. skin rash; dilucan as per ID service 4. CKD3: stable 5. Hypokalemia: resolved 6. GERD 7: Dispo: cleared richa D/C by all services; F/U in offices Vitals Vitals Vital Signs Date Time Temp Pulse Resp B/P Pulse Ox O2 Delivery O2 Flow Rate FiO2 08/12/16 11:00 98.1 90 18 130/84 95 Room Air 98.1 Physical Exam General: Alert, Oriented X3, Cooperative, No acute distress Heart: Regular rate, Normal S1, Normal S2 Lungs: Clear Abdomen: Soft, Other (lap sites without signs of infection, some ecchymosis to umbilical incision ) Extremities: No edema Skin: No rashes Labs LABS Laboratory Tests Test 08/12/16 04:25 White Blood Count 16.2x10^3/uL (4.0-11.0) Red Blood Count 4.49x10^6/uL (3.50-5.40) Hemoglobin 12.6g/dL (12.0-15.5) Hematocrit 39.2% (36.0-47.0) Mean Corpuscular Volume 87fL (79-100) Mean Corpuscular Hemoglobin 28pg (25-35) Mean Corpuscular Hemoglobin Concent 32g/dL (31-37) Red Cell Distribution Width 13.9% (11.5-14.5) Platelet Count 338x10^3/uL (140-400) Neutrophils (%) (Auto) 76% (31-73) Lymphocytes (%) (Auto) 13% (24-48) Monocytes (%) (Auto) 9% (0-9) Eosinophils (%) (Auto) 1% (0-3) Basophils (%) (Auto) 0% (0-3) Neutrophils # (Auto) 12.3x10^3uL (1.8-7.7) Lymphocytes # (Auto) 2.2x10^3/uL (1.0-4.8) Monocytes # (Auto) 1.4x10^3/uL (0.0-1.1) Eosinophils # (Auto) 0.2x10^3/uL (0.0-0.7) Basophils # (Auto) 0.1x10^3/uL (0.0-0.2) Sodium Level 141mmol/L (136-145) Potassium Level 4.0mmol/L (3.5-5.1) Chloride Level 103mmol/L (98-107) Carbon Dioxide Level 27mmol/L (21-32) Anion Gap 11 (6-14) Blood Urea Nitrogen 11mg/dL (7-20) Creatinine 0.9mg/dL (0.6-1.0) Estimated GFR (Cockcroft-Gault) 66.0 Glucose Level 93mg/dL (70-99) Calcium Level 9.4mg/dL (8.5-10.1) Review of Systems Review of Systems feels ok, eager to go home. BM this AM, tolerating PO KAMRON GILMORE MD Aug 12, 2016 15:21
--- NOTE | 2016-08-12 16:53 | DISCH ---
DISCHARGE INSTRUCTIONS Condition on Discharge Condition on Discharge: Stable Activity After Discharge Activity Instructions for Disc: No restrictions Contacting the DR. after DC Call your doctor for: If your condition worsens KAMRON GILMORE MD Aug 12, 2016 16:53
[2016-08-12] MEDS ORDERED: LISI-334 PO (16:58)
[2016-08-12] MEDS ORDERED: HYDR-2666 PO (16:58)
[2016-08-12] MEDS ORDERED: FLUC100T7 PO (16:58)
[2016-08-12] MEDS ORDERED: SENN-22 PO (16:58)
[2016-08-12] MEDS ORDERED: AMOX1TAB11 PO (16:58)
--- NOTE | 2016-08-13 22:19 | DS ---
DATE OF DISCHARGE: 08/12/2016 CHIEF COMPLAINT: Incarcerated umbilical hernia. HOSPITAL COURSE: The patient is a 50-year-old woman who presented with severe abdominal pain and was found with an incarcerated umbilical hernia. She was taken to the OR emergently with mesh placement by Dr. Rich on 08/05/2016. She recovered fairly quickly. She was treated for fevers and peritonitis initially with IV antibiotics, later changed to Augmentin. Her other medical problems including chronic kidney disease and GERD essentially remained stable and were treated conservatively. PHYSICAL EXAMINATION: Please refer to note from same day, discharge 08/12/2016. DISCHARGE DISPOSITION: To home. DISCHARGE CONDITION: Stable. DISCHARGE DIAGNOSES: Incarcerated umbilical hernia. DISCHARGE MEDICATIONS: Please refer to MAR. DISCHARGE INSTRUCTIONS: The patient will follow up with Dr. Rich in 10-14 days and see her PCP in 2-4 weeks. KAMRON GILMORE MD DR: SELENA/nts JOB#: [id number] / [id number] NANCY Jaramillo MD
== END 2016-08-12 17:30 | disposition home or self-care (01) | DRG 355 ==
LOC: ER 17:47 → 4 NORTH 20:11
PROVIDERS: ADMIT Internal Medicine; ATTEND Internal Medicine
PROC: 0WUF0JZ Supplement Abdominal Wall with Synthetic Substitute, Open Approach (ICD-10-PCS; principal; 2016-08-05 21:30)
DX: K42.0 Umbilical hernia with obstruction, without gangrene (principal); K21.9 Gastro-esophageal reflux disease without esophagitis; E66.9 Obesity, unspecified; Z90.710 Acquired absence of both cervix and uterus; Z68.38 Body mass index [BMI] 38.0-38.9, adult; E87.6 Hypokalemia; B37.2 Candidiasis of skin and nail; K43.0 Incisional hernia with obstruction, without gangrene; G89.29 Other chronic pain
CPT/HCPCS: 36415; 71020; 74022; 74177; 80048; 80053; 81001; 83605; 83690; 83735; 85007; 85027; 87040; 87086; 88302; 96374; 96375; 96376; C9113; J0330; J0360; J0694; J1100; J1170; J1200; J1335; J1650; J1885; J2250; J2270; J2405; J2543; J2704; J2710; J2765; J3010; J3480; J3490; J7030; Q9966; Q9967; S0028; 99285-25